=== PATIENT | male | born 1930 | race Caucasian/White ===

== ENCOUNTER → 2016-02-15 | Outpatient (CLI) | payer OTHER, BC ==
[~2016-02-15] MED LIST: BNC/20125 PO; CIPR-255 PO; DIPH25CA65 PO; DOCU-94 PO; DOXY100C76 PO; FINA5TAB PO; HYDR12.55 PO; MELA1TAB5 PO; MULT-190 PO; NAPR1TAB9 PO; OLME40TA30 PO; PHEN-876 PO; benicar
[2016-02-15 18:49] LABS: URINE APPEARANCE CLEAR (CLEAR); URINE BILIRUBIN NEG (NEG); URINE COLOR YELLOW; URINE NITRITE NEG (NEG); URINE SPECIFIC GRAVITY 1.008 (1.000-1.030); UROBILINOGEN NEG (NEG)
[2016-02-15 19:11] LABS: MANUAL MICROSCOPIC REQUIRED? NO; REVIEW REQ? YES
[2016-02-15 19:38] LABS: URINE EPITHELIAL CELL AUTO 20-30 /lpf (0-5)
== END | disposition home or self-care (01) ==
LOC: C.LABSPEC 17:49
PROVIDERS: ATTEND Urology
DX: N39.0 Urinary tract infection, site not specified (principal)

== ENCOUNTER → 2016-02-22 | Outpatient (CLI) | payer OTHER, BC | END | disposition home or self-care (01) | LOC: C.LABSPEC 17:15 | PROVIDERS: ATTEND Urology | DX: N39.0 Urinary tract infection, site not specified (principal); B37.49 Other urogenital candidiasis ==

== ENCOUNTER → 2016-04-11 | Outpatient (CLI) | payer OTHER, BC ==
[~2016-04-11] MED LIST changes: +OPTIRAY 320 IV PRN
--- NOTE | 2016-04-11 09:46 | DIAGNOSTIC IMAGING REPORT ---
CT ABD/PELVIS IV CONTRAST ONLY CLINICAL HISTORY: Recurrent transitional cell carcinoma the bladder COMPARISON STUDY: Outside study dated 10/06/2015 TECHNIQUE: Following the IV administration of 116 mL of Optiray-320, CT scan of the abdomen and pelvis was performed from the lung bases to the proximal femurs. Images are reviewed in the axial, sagittal, and coronal planes. IV contrast was administered without complication. CT DOSE: 620.16 mGycm FINDINGS: Lower chest: There are bibasal atelectatic changes. There is small hiatal hernia. Liver: The contrast-enhanced liver is normal in size, contour, and attenuation. There is no intrahepatic biliary ductal dilatation. The hepatic veins and portal veins are patent. Gallbladder: Unremarkable. Spleen: Normal in size and attenuation. Pancreas: There is a stable 3.4 cm cystic mass involving the pancreatic head. Likely diagnostic considerations include an IPMN, or cystadenoma/cystadenocarcinoma. Adrenal glands: There is stable left adrenal gland thickening. Kidneys: There are multiple bilateral renal cysts and parapelvic cysts. The largest on the left measures 18 mm. The largest on the right measures 15 mm. Bowel: There are no transition zones indicate bowel obstruction. There is no free air. There is colonic diverticulosis. There are no acute peridiverticular inflammatory changes. The appendix appears normal. Peritoneum: There is no intraperitoneal free air or abdominal ascites. Vasculature: The abdominal aorta is normal in course and caliber. Adenopathy: None. Pelvic viscera: The prostate is enlarged measuring 6.7 cm Skeletal structures: There is a stable 2.5 cm hypodensity located between the obturator externus and pectineus muscle. This likely relates to a distended bursa. IMPRESSION: 1. No CT evidence of metastatic disease. 2. Stable 3.4 cm cystic mass involving the pancreatic head 3. Prostamegaly 4. Diverticulosis. No evidence of acute diverticulitis. Electronically signed by: Austin Pradhan M.D. 04/11/2016 9:45 AM Dictated Date/Time: 04/11/2016 9:25 AM
== END | disposition home or self-care (01) ==
LOC: C.CTS 09:00
PROVIDERS: ATTEND Urology
DX: C67.9 Malignant neoplasm of bladder, unspecified (principal); N40.0 Benign prostatic hyperplasia without lower urinary tract symptoms; K57.90 Diverticulosis of intestine, part unspecified, without perforation or abscess without bleeding

== ENCOUNTER 2016-04-18 08:35 | Observation (INO) | payer OTHER, BC ==
[2016-04-04 10:19] VITALS: BMI 25.0
--- NOTE | 2016-04-04 10:57 | PAT Medication Instructions ---
Service Date Apr 04, 2016. Current Home Medication List Diphenhydramine Hcl (Benadryl Allergy), 1 CAP PO HS Docusate Sodium (Colace), 1 CAP PO BID Doxycycline Monohydrate (Monodox), 100 MG PO BID Finasteride (Proscar), 5 MG PO QPM Naproxen (Aleve), 220 MG PO Q12 PRN for Pain Ocuvite Preservision (Ocuvite Preservision), 1 TAB PO BID Olmesartan/Hctz (Benicar Hct 40/12.5), 1 TAB PO QAM Medication Instructions For Your Scheduled Surgery - Check with surgeon for instructions: Naproxen (Aleve), 220 MG PO Q12 PRN for Pain - Hold the following medications the morning of surgery: Olmesartan/Hctz (Benicar Hct 40/12.5), 1 TAB PO QAM Ocuvite Preservision (Ocuvite Preservision), 1 TAB PO BID Finasteride (Proscar), 5 MG PO QPM Docusate Sodium (Colace), 1 CAP PO BID - Take the following medications the morning of surgery with a sip of water: Doxycycline Monohydrate (Monodox), 100 MG PO BID - Take the following medications as scheduled the night before surgery: Doxycycline Monohydrate (Monodox), 100 MG PO BID Diphenhydramine Hcl (Benadryl Allergy), 1 CAP PO HS Docusate Sodium (Colace), 1 CAP PO BID If you have any questions please call us at [phone] (Maggie Pitts PA-C) or [phone] or [phone]
--- NOTE | 2016-04-04 11:40 | DIAGNOSTIC IMAGING REPORT ---
CHEST PREADMISSION(PA/LAT) CLINICAL HISTORY: PAT preoperative evaluation COMPARISON STUDY: No previous studies for comparison. FINDINGS: The bones soft tissues and hemidiaphragms are normal. The cardiomediastinal silhouette is normal. The lungs are clear. The pulmonary vasculature is normal. IMPRESSION: Negative chest. Electronically signed by: Luis De La Cruz M.D. 04/04/2016 11:39 AM Dictated Date/Time: 04/04/2016 11:39 AM
[2016-04-04 11:48] LABS: BASO % 0.3 %; BASO ABS # 0.02 K/uL (0-0.2); COMPLETE YES; EOS % 1.6 %; HEMATOCRIT 35.9 % (42-52); IG% 0.3 %; LYMPH % 14.7 %; LYMPH ABS # 0.85 K/uL (1.2-3.4); MEAN CELL VOLUME 95.2 fL (80-100); MEAN CORPUSCULAR HEMOGLOBIN 32.9 pg (25-34); MEAN CORPUSCULAR HGB CONC 34.5 g/dl (32-36); MEAN PLATELET VOLUME 9.2 fL (7.4-10.4); NEUT % 73.1 %; PLATELET COUNT 237 K/uL (130-400); RED BLOOD COUNT 3.77 M/uL (4.7-6.1)
[2016-04-04 11:59] LABS: URINE APPEARANCE CLEAR (CLEAR); URINE BILIRUBIN NEG (NEG); URINE COLOR YELLOW; URINE NITRITE NEG (NEG); URINE PH 5.5 (4.5-7.5); URINE SPECIFIC GRAVITY 1.009 (1.000-1.030); UROBILINOGEN NEG (NEG)
[2016-04-04 12:02] LABS: MANUAL MICROSCOPIC REQUIRED? NO; REVIEW REQ? NO
[2016-04-04 12:18] LABS: BUN/CREATININE RATIO 23.5 (10-20); CALCIUM 8.7 mg/dl (8.5-10.1); CREATININE 1.4 mg/dl (0.60-1.40); POTASSIUM 4.7 mmol/L (3.5-5.1)
[2016-04-18] VITALS (9 sets, daily range): BP systolic 95–178; BP diastolic 53–96; PULSE 71–91; TEMP 36.4–36.8; O2SAT 94–99; Ht 177.8 cm; Wt 78.7 kg
[~2016-04-18] VITALS: Ht 177.8 cm; Wt 78.7 kg
[~2016-04-18 08:35] MED LIST changes: -BNC/20125 PO; -CIPR-255 PO; +GENTAMICIN INJ 80 MG in DEXTROSE 5% 100ML 100 ML IV SCH; -HYDR12.55 PO; +LACTATED RINGER'S 1000ML 1,000 ML IV SCH; -MELA1TAB5 PO; -OPTIRAY 320 IV PRN; -PHEN-876 PO; -benicar
[2016-04-18] MEDS ORDERED: ONDANSETRON INJ 2 MG/ML 2 ML VIAL ONE (09:07)
[2016-04-18] MEDS ORDERED: DEXAMETHASONE SOD INJ 4 MG/ML VIAL ONE (09:07)
[2016-04-18] MEDS ORDERED: FENTANYL CITRATE INJ 50 MCG/1 ML 2 ML VIAL ONE (09:07)
[2016-04-18] MEDS ORDERED: PROPOFOL IV EMULSION 10 MG/ML 20 ML VIAL IV ONE (09:07)
[2016-04-18] MEDS ORDERED: LIDOCAINE HCL 2% 2 ML VIAL (20MG/ML) ONE (09:07)
[2016-04-18] MEDS ORDERED: LACTATED RINGER'S 1000ML 1,000 ML IV PRN (09:35)
[2016-04-18] MEDS ORDERED: ONDANSETRON INJ 2 MG/ML 2 ML VIAL IV PRN (09:45)
[2016-04-18] MEDS ORDERED: FENTANYL CITRATE INJ 50 MCG/1 ML 2 ML VIAL IV PRN (09:45)
--- NOTE | 2016-04-18 10:06 | History & Physical Bridge Note ---
H&P Re-Evaluation Bridge Note: I have examined the patient, reviewed the History & Physical and in the interval since the performance of the History & Physical I have noted the following changes of clinical significance: No changes noted
[2016-04-18] MEDS ORDERED: PHENYLEPHRINE 100MCG/ML 5ML SYR ONE (10:34)
[2016-04-18] MEDS ORDERED: VASOPRESSIN 20 UNIT/ML VIAL ONE (10:37)
[2016-04-18] MEDS ORDERED: SODIUM CHLORIDE 0.9% INJ 10 ML VIAL ONE (10:37)
[2016-04-18] MEDS ORDERED: CONRAY 30% 150ML BOTTLE INSTIL ONE (10:51)
--- NOTE | 2016-04-18 11:37 | DIAGNOSTIC IMAGING REPORT ---
Retrograde RETROGRADE INCLUDES KUB CLINICAL HISTORY: LT SIDE carcinoma TECHNIQUE: Image intensifier COMPARISON STUDY: None FINDINGS: Retrograde opacification of the left ureter and upper collecting system shows no significant filling defect. There is no evidence for contrast extravasation. IMPRESSION: Normal study Electronically signed by: Luis De La Cruz M.D. 04/18/2016 11:36 AM Dictated Date/Time: 04/18/2016 11:35 AM
--- NOTE | 2016-04-18 11:56 | [facility] Post Operative Brief Note ---
Immediate Operative Summary Operative Date Apr 18, 2016. Pre-Operative Diagnosis Benign prostatic hypertrophy with urinary obstruction Recurrent transitional cell carcinoma Post-Operative Diagnosis Same Procedure(s) Performed cystoscopy, left retrograde pyelogram, transurethral resection of bladder neck tumors with bipolar, fulgeration of large surface area posterior and lateral santana of bladder Surgeon Dr Rodriguez Radio Interference Supervisor Surgeon(s) none Estimated Blood Loss 50ml Findings 2cm tumor at bladder neck on posterior r aspect which spread down to the trigone Erythema on posterior wall and papillary 1 cm area posterior wall tumor bladder neck anterior left and lateral to l ureteral orifice no definite filling defect l ureter difficult to see r ureter because of tumor in r trigone Specimens A. posterior wall biopsy B. right trigon C. tumor of bladder neck Drains 22 cifuentes with 5 cc balloon Disposition Recovery Room / PACU
[2016-04-18] MEDS ORDERED: ACETAMINOPHEN 325 MG TAB PO PRN (12:00)
--- NOTE | 2016-04-18 12:32 | Anesthesiology Progress Note ---
Anesthesia Post Op Note Date & Time Apr 18, 2016 at 12:32 Vital Signs Pain Intensity: 0 Vital Signs Past 12 Hours Date Time Temp Pulse Resp B/P Pulse Ox O2 Delivery O2 Flow Rate FiO2 04/18/16 12:17 66 17 04/18/16 12:17 66 17 96 04/18/16 12:15 148/74 04/18/16 12:12 66 15 04/18/16 12:12 66 15 96 04/18/16 12:10 135/77 04/18/16 12:07 67 18 04/18/16 12:07 65 18 100 04/18/16 12:05 142/70 04/18/16 12:02 65 16 100 04/18/16 12:02 66 16 04/18/16 12:01 64 17 04/18/16 12:01 63 17 100 04/18/16 12:00 137/74 04/18/16 11:56 63 15 04/18/16 11:56 63 15 100 04/18/16 11:55 147/78 04/18/16 11:51 63 13 100 04/18/16 11:51 63 13 04/18/16 11:50 139/77 04/18/16 11:46 65 12 144/68 100 04/18/16 11:46 65 12 04/18/16 11:46 36.7 64 12 144/68 100 Mask 10 04/18/16 09:04 36.4 81 20 159/76 97 Room Air Notes Mental Status: alert / awake / arousable, participated in evaluation Pt Amnestic to Procedure: Yes Nausea / Vomiting: adequately controlled Pain: adequately controlled Airway Patency, RR, SpO2: stable & adequate BP & HR: stable & adequate Hydration State: stable & adequate Anesthetic Complications: no major complications apparent
--- NOTE | 2016-04-18 12:33 | OPERATIVE REPORT ---
DATE OF OPERATION: 04/18/2016 PREOPERATIVE DIAGNOSIS: Bladder cancer. POSTOPERATIVE DIAGNOSIS: Same. PROCEDURE: turbt,bladder biopsy and fulguration of 3 cm surface area, Left retrograde. SURGEON: Dr. Rodriguez. ANESTHESIA: General. INDICATIONS: The patient is an 85-year-old male with history of bladder cancer who was previously treated in [place], but came to my office for treatment after being diagnosed and needing BCG. He was given a course of BCG in my office and now had a recurrence at the bladder neck on the right inferiorly and left superiorly as well as some in the trigone area and on the posterior wall. He presents now for biopsies and fulguration to assess for further treatment and/or BCG. DESCRIPTION OF THE PROCEDURE: The patient was taken to the cysto suite with Venodyne stockings on. He had been given gentamicin. He was placed in the dorsal lithotomy position after general anesthesia was administered, prepped and draped in the usual sterile fashion. A 21-Malay cystoscope was passed per urethra for a long obstructing prostatic urethra and once inside the bladder the bladder was carefully examined with the 30, the 70 and the 110 degree lens. The largest tumor was on the inferior aspect of the bladder neck on the right side. This was about 1.5 cm and was contiguous with tumor that went into the trigone and made the right ureteral orifice difficult to see. The left ureteral orifice was clearly visualized. Because there was some difficulty visualizing some of the left collecting system on a CAT scan earlier this year in [place] repeat CAT scan did not confirm this here, but I did do a left retrograde and did not see any definite filling defect. I planned to do a right retrograde, but again because of difficulties identifying the orifice because of its proximity to the tumor did not proceed with this. I did proceed after this to do cup biopsies of the posterior wall. Because of the size of the prostate it would be difficult to actually do a resection of anything on the posterior wall and was able to biopsy and fulgurate 2 areas there. Subsequently, fulgurated several areas around the trigone, which were difficult to biopsy because of the size of the prostate. I did that using the 70 degree lens with a deflecting bridge. At the end of this, there were no other obvious tumors visible and I must say that I did fulgurate a large surface area on the posterior wall with the Bugbee about 2-3 cm in circumference. I then proceeded to place a resectoscope and did a TUR biopsy of the bladder neck of the larger tumor and then fulgurated much of the tumor that extended towards the trigone from this. I then also fulgurated the right anterior bladder neck tumor. At the end of the procedure, I placed a 22-Malay Hess catheter with 5 mL balloon. Bleeding seemed to be controlled. The patient was transferred to the recovery room in stable condition. I attest to the content of the Intraoperative Record and any orders documented therein. Any exceptions are noted below. MTDD
[2016-04-18] MEDS: SODIUM CHLORIDE 0.9% 1000ML 1,000 ML IV SCH ×2 (13:23→21:38)
[2016-04-18] MEDS: HYDROCODONE/ACETAMOPHEN 5/325MG TAB PO PRN ×2 (13:23→17:22)
[2016-04-18] MEDS ORDERED: IV FLUIDS COMPLETED PRN (13:30)
[2016-04-19 03:16] VITALS: BP 103/56; PULSE 76; TEMP 36.6; O2SAT 92
--- NOTE | 2016-04-19 08:01 | Anesthesiology Progress Note ---
Anesthesia Post Op Note Date & Time Apr 19, 2016 at 08:01 Vital Signs Pain Intensity: 0.0 Vital Signs Past 12 Hours Date Time Temp Pulse Resp B/P Pulse Ox O2 Delivery O2 Flow Rate FiO2 04/19/16 03:16 36.6 76 16 103/56 92 Room Air 04/18/16 23:27 82 113/64 94 Room Air 04/18/16 23:15 Room Air 04/18/16 23:02 36.6 80 16 95/53 96 Nasal Cannula 2.0 04/18/16 20:18 Nasal Cannula 2.0 Notes Mental Status: alert / awake / arousable, participated in evaluation Pt Amnestic to Procedure: Yes Nausea / Vomiting: adequately controlled Pain: adequately controlled Airway Patency, RR, SpO2: stable & adequate BP & HR: stable & adequate Hydration State: stable & adequate Anesthetic Complications: no major complications apparent
[2016-04-19 08:23] VITALS: BP 116/68; PULSE 69; TEMP 36.6; O2SAT 92
[2016-04-19 08:41] VITALS: O2SAT 92
--- NOTE | 2016-04-19 10:16 | Progress Note ---
Subjective Date of Service: Apr 19, 2016. Subjective Pt evaluation today including: conversation w/ patient, physical exam Voiding: cifuentes catheter in place 85 year old male s/p TURBT POD#[address] Rodriguez He is doing well post op Tolerating diet Ambulating in room and hallway Denies pain Cifuentes intact and draining clear light pink urine. No clots. AFVSS Review of Systems Constitutional: No chills, No fever Eyes: No worsening of vision ENT: No hearing loss Respiratory: No cough, No dyspnea on exertion, No shortness of breath Cardiac: No chest pain Abdomen: No constipation, No diarrhea, No nausea, No pain, No vomiting Musculoskeletal: No joint pain Male : + see HPI Neurologic: No memory loss Psychiatric: No depression symptoms Heme: No abnormal bleeding/bruising Endo: No fatigue Skin: No rash Objective Vital Signs Date Time Temp Pulse Resp B/P Pulse Ox O2 Delivery O2 Flow Rate FiO2 04/19/16 08:41 92 Room Air 04/19/16 08:23 36.6 69 14 116/68 92 Room Air 04/19/16 08:00 Room Air 04/19/16 03:16 36.6 76 16 103/56 92 Room Air 04/18/16 23:27 82 113/64 94 Room Air 04/18/16 23:15 Room Air 04/18/16 23:02 36.6 80 16 95/53 96 Nasal Cannula 2.0 04/18/16 20:18 Nasal Cannula 2.0 04/18/16 18:59 36.8 91 17 131/67 94 Nasal Cannula 2.0 04/18/16 16:04 36.7 80 18 172/82 99 Nasal Cannula 2.0 04/18/16 15:03 36.5 76 18 173/88 99 Nasal Cannula 2.0 04/18/16 14:00 71 16 169/80 95 Nasal Cannula 2.0 04/18/16 13:30 36.4 75 16 178/96 98 Nasal Cannula 2.0 04/18/16 13:00 36.4 73 16 167/85 98 Nasal Cannula 2.0 04/18/16 13:00 Nasal Cannula 2.0 04/18/16 13:00 Nasal Cannula 2.0 04/18/16 12:51 68 17 04/18/16 12:51 68 17 98 04/18/16 12:50 145/75 04/18/16 12:46 67 14 04/18/16 12:46 67 14 98 04/18/16 12:45 150/77 04/18/16 12:41 68 22 98 04/18/16 12:41 67 22 04/18/16 12:40 138/74 04/18/16 12:39 67 17 98 04/18/16 12:39 66 17 04/18/16 12:35 147/74 04/18/16 12:34 67 26 04/18/16 12:34 67 26 97 04/18/16 12:34 36.5 04/18/16 12:33 67 16 04/18/16 12:33 67 16 98 04/18/16 12:30 134/69 04/18/16 12:28 68 16 04/18/16 12:28 68 16 97 04/18/16 12:25 146/73 04/18/16 12:23 68 20 100 04/18/16 12:23 66 20 04/18/16 12:20 134/74 04/18/16 12:18 68 16 04/18/16 12:18 67 16 96 04/18/16 12:17 66 17 04/18/16 12:17 66 17 96 04/18/16 12:15 148/74 04/18/16 12:12 66 15 04/18/16 12:12 66 15 96 04/18/16 12:10 135/77 04/18/16 12:07 67 18 04/18/16 12:07 65 18 100 04/18/16 12:05 142/70 04/18/16 12:02 65 16 100 04/18/16 12:02 66 16 04/18/16 12:01 64 17 04/18/16 12:01 63 17 100 04/18/16 12:00 137/74 04/18/16 11:56 63 15 04/18/16 11:56 63 15 100 04/18/16 11:55 147/78 04/18/16 11:51 63 13 100 04/18/16 11:51 63 13 04/18/16 11:50 139/77 04/18/16 11:46 65 12 144/68 100 04/18/16 11:46 65 12 04/18/16 11:46 36.7 64 12 144/68 100 Mask 10 Physical Exam General Appearance: WD/WN, no apparent distress Eyes: normal inspection ENT: hearing grossly normal Neck: no JVD Respiratory/Chest: no respiratory distress, no accessory muscle use Abdomen: soft Extremities: normal inspection, no pedal edema, no calf tenderness Neurologic/Psychiatric: alert, normal mood/affect, oriented x 3 Skin: normal color, warm/dry, no rash Assessment and Plan Bladder Cancer s/p TURBT Pt doing well post op Urine is essentially clear- light pink/starla no clots- personally removed his cifuentes this am. Pt to be discharged today once he is able to void. Will send him home on 5 days of Cipro. Return to office for previously scheduled post op visit.
[2016-04-19] MEDS ORDERED: CIPR-255 PO (10:17)
--- NOTE | 2016-04-19 10:19 | Discharge Instructions ---
Discharge Instructions Date of Service Apr 19, 2016. Admission Reason for Admission: Bladder Cancer Discharge Discharge Diagnosis / Problem: Bladder Cancer Discharge Goals Goal(s): Decrease discomfort, Improve function, Improve disease control, Prevent Disease Progression Activity Recommendations Activity Limitations: per Instructions/Follow-up section . Instructions / Follow-Up Instructions / Follow-Up 1. Do not lift >15lbs x 6 weeks. 2. No heavy exercise x 6 weeks. You may engage in light activity such as walking and stairs as tolerated. 3. Finish all of the antibiotic you have been prescribed. 4. Follow-up as scheduled. Please call our office at [phone] if you need to reschedule for any reason. . Current Hospital Diet Hospital Diet(s): Regular Diet Discharge Diet Recommended Diet: Regular Diet Procedures Procedures Performed: cystoscopy, left retrograde pyelogram, transurethral resection of bladder neck tumors with bipolar, fulgeration of large surface area posterior and lateral santana of bladder Pending Studies Studies pending at discharge: no Medical Emergencies . Who to Call and When: Medical Emergencies: If at any time you feel your situation is an emergency, please call 911 immediately. . Non-Emergent Contact Non-Emergency issues call your: Primary Care Provider, Urologist Call Non-Emergent contact if: temperature is above 101.5 . . "Provider Documentation" section prepared by Kerri Grover. VTE Core Measure Inpt VTE Proph given/why not?: Unfractionated heparin SQ, SCD's
[2016-04-19 12:09] VITALS: BP 116/68; PULSE 69; TEMP 36.6; O2SAT 92
--- NOTE | 2016-04-21 18:04 | DISCHARGE SUMMARY ---
HISTORY OF PRESENTATION AND HOSPITAL COURSE: The patient is a 85-year-old male who had significant bladder cancer status post VCG with persistent cancer on followup cystoscopy. He presented for TURBT and fulguration for staging and treatment. The patient had his procedure on 04/18/2016 without difficulty. Postoperatively he had a Hess catheter in place and was left in the hospital because of his age and lived an hour away. He did well overnight with light pink urine. The following day the catheter was removed. He was able to void and discharged to home in stable condition.
[2016-07-17] MEDS ORDERED: BNC/20125 PO (16:25)
[2016-07-17] MEDS ORDERED: MELA1TAB5 PO (16:25)
== END 2016-04-19 12:20 | disposition home or self-care (01) ==
LOC: ENRESERVTM → ENRESERVDT → C.ACU 08:35 → C.MSN 12:04 → UNDOADMOB 13:09 → C.MSN 13:09
PROVIDERS: ADMIT Urology; ATTEND Urology
DX: C67.9 Malignant neoplasm of bladder, unspecified (principal); N40.1 Benign prostatic hyperplasia with lower urinary tract symptoms; I10 Essential (primary) hypertension

== ENCOUNTER → 2016-04-30 | Outpatient (CLI) | payer OTHER, BC ==
[~2016-04-30] MED LIST changes: +BNC/20125 PO; +CIPR-255 PO; -DOXY100C76 PO; -GENTAMICIN INJ 80 MG in DEXTROSE 5% 100ML 100 ML IV SCH; +HYDR12.55 PO; -LACTATED RINGER'S 1000ML 1,000 ML IV SCH; +MELA1TAB5 PO; +PHEN-876 PO; +benicar
== END | disposition home or self-care (01) ==
LOC: C.LABSPEC 17:14
PROVIDERS: ATTEND Urology
DX: N39.0 Urinary tract infection, site not specified (principal); C67.9 Malignant neoplasm of bladder, unspecified

== ENCOUNTER → 2016-06-17 | Outpatient (CLI) | payer OTHER, BC | END | disposition home or self-care (01) | LOC: C.LABSPEC 17:14 | PROVIDERS: ATTEND Nurse Practitioner Family | DX: N39.0 Urinary tract infection, site not specified (principal); C67.9 Malignant neoplasm of bladder, unspecified ==

== ENCOUNTER → 2016-07-16 | Outpatient (CLI) | payer OTHER, BC ==
--- NOTE | 2016-07-25 06:22 | CODING QUERY MEDICAL NECESSITY ---
CQSUPPORTING DIAGNOSIS NEEDED A supporting diagnosis is required for the test/procedure performed on this patient in order for us to be reimbursed by the patient's insurance. Please provide a supporting diagnosis for the following test/procedure listed below next to the test name along with your signature. *If there is no additional diagnosis for this patient that would support the following test/procedure please document that below next to the test/procedure. Test(s)/Procedure(s) that require a supporting diagnosis: TAYLOR 07/16/16 URINE CULTURE Provider Signature: Date: Thank you Maria Antonia Gonzales [employer] Once completed, please kindly fax back to [phone] For questions please call [phone]
== END | disposition home or self-care (01) ==
LOC: C.LABSPEC 17:21
PROVIDERS: ATTEND Urology
DX: C67.9 Malignant neoplasm of bladder, unspecified (principal); N39.0 Urinary tract infection, site not specified

== ENCOUNTER → 2016-07-25 | Outpatient (CLI) | payer OTHER, BC ==
[~2016-07-25] MED LIST changes: -CIPR-255 PO; -DIPH25CA65 PO; -OLME40TA30 PO
[2016-07-25 12:54] LABS: BASO % 0.3 %; BASO ABS # 0.02 K/uL (0-0.2); COMPLETE YES; EOS % 1.5 %; HEMATOCRIT 34.1 % (42-52); IG% 0.3 %; LYMPH % 15.5 %; LYMPH ABS # 1.11 K/uL (1.2-3.4); MEAN CELL VOLUME 96.3 fL (80-100); MEAN CORPUSCULAR HEMOGLOBIN 31.9 pg (25-34); MEAN CORPUSCULAR HGB CONC 33.1 g/dl (32-36); MEAN PLATELET VOLUME 9.3 fL (7.4-10.4); MONO % 10.5 %; NEUT % 71.9 %; PLATELET COUNT 264 K/uL (130-400); RED BLOOD COUNT 3.54 M/uL (4.7-6.1); WHITE BLOOD COUNT 7.17 K/uL (4.8-10.8)
[2016-07-25 17:40] LABS: BLOOD UREA NITROGEN 55 mg/dl (7-18); CALCIUM 8.3 mg/dl (8.5-10.1); CARBON DIOXIDE 21 mmol/L (21-32); CHLORIDE 114 mmol/L (98-107); GLUCOSE 103 mg/dl (70-99); POTASSIUM 4.9 mmol/L (3.5-5.1); SODIUM 143 mmol/L (136-145)
[2016-07-25 17:55] LABS: URINE APPEARANCE TURBID (CLEAR); URINE BILIRUBIN NEG (NEG); URINE COLOR ORANGE; URINE EPITHELIAL CELL AUTO 20-30 /lpf (0-5); URINE NITRITE NEG (NEG); URINE SPECIFIC GRAVITY 1.017 (1.000-1.030); UROBILINOGEN NEG (NEG)
[2016-07-25 18:00] LABS: MANUAL MICROSCOPIC REQUIRED? NO; REVIEW REQ? YES
== END | disposition home or self-care (01) ==
LOC: C.LABPBG 11:29
PROVIDERS: ATTEND Urology
DX: C67.9 Malignant neoplasm of bladder, unspecified (principal)

== ENCOUNTER 2016-08-08 07:16 | Day surgery (SDC) | payer OTHER, BC ==
[2016-07-17 16:30] VITALS: Ht 177.8 cm; Wt 79.5 kg
[~2016-08-08] VITALS: Ht 177.8 cm; Wt 79.5 kg
[~2016-08-08 07:16] MED LIST changes: +GENTAMICIN INJ 240 MG in DEXTROSE 5% 100ML 100 ML IV SCH; -HYDR12.55 PO; +LACTATED RINGER'S 1000ML 1,000 ML IV SCH; -PHEN-876 PO; -benicar
[2016-08-08] MEDS ORDERED: FENTANYL CITRATE INJ 50 MCG/1 ML 2 ML VIAL ONE (07:35)
[2016-08-08] MEDS ORDERED: LIDOCAINE HCL 2% 2 ML VIAL (20MG/ML) ONE (07:35)
[2016-08-08] MEDS ORDERED: ONDANSETRON INJ 2 MG/ML 2 ML VIAL ONE (07:35)
[2016-08-08] MEDS ORDERED: DEXAMETHASONE SOD INJ 4 MG/ML VIAL ONE (07:35)
[2016-08-08] MEDS ORDERED: MoRPHine SULFATE 2 MG/ML CARP ONE ×2 (07:35→10:17)
[2016-08-08] MEDS ORDERED: PROPOFOL IV EMULSION 10 MG/ML 20 ML VIAL IV ONE (07:35)
[2016-08-08] MEDS ORDERED: benicar (08:17)
[2016-08-08] MEDS ORDERED: HYDR12.55 PO (08:17)
[2016-08-08 08:22] VITALS: BP 145/78; PULSE 62; TEMP 36.6; O2SAT 96
[2016-08-08] MEDS ORDERED: VASOPRESSIN 20 UNIT/ML VIAL ONE (09:54)
[2016-08-08] MEDS ORDERED: EpHEDrine SULFATE 50MG/5ML SYR ONE (09:54)
[2016-08-08] MEDS ORDERED: PHENYLEPHRINE 100MCG/ML 5ML SYR ONE (09:54)
[2016-08-08] MEDS ORDERED: EpHEDrine SULFATE INJ 50 MG/ML AMP IV PRN (10:00)
[2016-08-08] MEDS ORDERED: FENTANYL CITRATE INJ 50 MCG/1 ML 2 ML VIAL IV PRN (10:00)
[2016-08-08] MEDS ORDERED: ATROPINE SULFATE 0.1 MG/ML 5ML SYR IV PRN (10:00)
--- NOTE | 2016-08-08 11:07 | [facility] Post Operative Brief Note ---
Immediate Operative Summary Operative Date Aug 08, 2016. Pre-Operative Diagnosis Benign Prostatic Hyperplasia with Urinary Obstruction, Malignant Neoplasm of Bladder, Recurrent Bladder Transitional Cell Carcinoma Post-Operative Diagnosis Benign Prostatic Hyperplasia with Urinary Obstruction, Malignant Neoplasm of Bladder, Recurrent Bladder Transitional Cell Carcinoma Procedure(s) Performed Cystoscopy, folgeration of large bladder biopsy. Surgeon Dr. Rodriguez Legal Records Clerk Surgeon(s) none Estimated Blood Loss 10 ml Findings cloudy urine , multiple large areas of inflammation worrisome for CIS but indistinguishable from chronic infection biopsies taken from multiple areas and large surface areas of friable tissue fulgurated no mass seen Specimens A: Posterior wall biopsy B: Right lateral wall C: Left anterior wall D: Left lateral wall E: Trigone Drains 18 cifuentes
[2016-08-08] MEDS ORDERED: PHEN-876 PO (11:09)
--- NOTE | 2016-08-08 11:11 | Discharge Instructions ---
Discharge Instructions Date of Service Aug 08, 2016. Visit Reason for Visit: Bladder Cancer Discharge Discharge Diagnosis / Problem: post op bladder bx and fulguration of large surface area Discharge Goals Goal(s): Decrease discomfort, Increase independence, Improve disease control Activity Recommendations Activity Limitations: per Instructions/Follow-up section (light activity next 7 days) Anesthesia . Post Anesthesia Instructions: If you have had General Anesthesia or IV Sedation: * Do not drive today. * Resume driving when surgeon permits. * Do not make important decisions or sign legal documents today. * Call surgeon for: 1. Temperature elevations greater than 101 degrees F. 2. Uncontrollable pain. 3. Excessive bleeding. 4. Persistent nausea and vomiting. 5. Medication intolerance (nausea, vomiting or rash). * For nausea and vomiting use only clear liquids such as: tea, soda, bouillon until nausea subsides, then gradually increase diet as tolerated. * If you have any concerns or questions, call your surgeon's office. If physician is unavailable and it is an emergency, call 911 or go to the nearest emergency room. . Diet Recommendations Recommended Home Diet: resume previous diet Procedures Procedures Performed: Cystoscopy, folgeration of large bladder biopsy. Pending Studies Studies pending at discharge: no Medical Emergencies . Who to Call and When: Medical Emergencies: If at any time you feel your situation is an emergency, please call 911 immediately. . Non-Emergent Contact Non-Emergency issues call your: Urologist Call Non-Emergent contact if: temperature is above 101, your pain is not controlled (you are unable to void) . . "Provider Documentation" section prepared by Rafael Rodriguez. .
--- NOTE | 2016-08-08 11:26 | [facility] Operative Report ---
Operative Report Operative Date Aug 08, 2016. Pre-Operative Diagnosis Benign Prostatic Hyperplasia with Urinary Obstruction, Malignant Neoplasm of Bladder, Recurrent Bladder Transitional Cell Carcinoma Procedure(s) Performed bladder biopsies and fulguration of large surface area Surgeon Dr. Rodriguez Gas Load Dispatcher Surgeon(s) none Estimated Blood Loss 10 ml Findings diffuse areas of erythema and chronically enflamed bladder Specimens A: Posterior wall biopsy B: Right lateral wall C: Left anterior wall D: Left lateral wall E: Trigone Drains 18 cifuentes Description of Procedure Pt taken to the cysto suite and placed in dorsal lithotomy position with antibiotics and venodyne stockings. General anesthesia administered and he was prepped and draped in the usual sterile fashion. A 22 kuwaiti cysto was passed and the bladder was drained of cloudy urine . He had several areas diffusely through the bladder where the wall was inflamed . Multiple areas were biopsied and large areas around these sights were fulgurated . At the end of the procedure there was no significant bleeding and the patient was transferred to the recovery room in stable condition with an 18 kuwaiti indwelling cifuentes. No mass was seen . I attest to the content of the Intraoperative Record and any orders documented therein. Any exceptions are noted below.
--- NOTE | 2016-08-08 11:28 | Anesthesiology Progress Note ---
Anesthesia Post Op Note Date & Time Aug 08, 2016 at 11:28 Vital Signs Pain Intensity: 0 Vital Signs Past 12 Hours Date Time Temp Pulse Resp B/P (MAP) Pulse Ox O2 Delivery O2 Flow Rate FiO2 08/08/16 11:20 36.3 71 14 130/68 96 Oxymask 3 08/08/16 11:10 69 14 126/68 95 Oxymask 5 08/08/16 11:00 66 14 129/71 95 Oxymask 10 08/08/16 10:50 36.2 70 12 130/67 95 Oxymask 10 08/08/16 08:22 36.6 62 18 145/78 (100) 96 Room Air Notes Mental Status: alert / awake / arousable, participated in evaluation Pt Amnestic to Procedure: Yes Nausea / Vomiting: adequately controlled Pain: adequately controlled Airway Patency, RR, SpO2: stable & adequate BP & HR: stable & adequate Hydration State: stable & adequate Anesthetic Complications: no major complications apparent
[2016-08-08 11:35] VITALS: BP 128/62; PULSE 72; TEMP 35.9; O2SAT 94
[2016-08-08 12:05] VITALS: BP 136/70; PULSE 73; O2SAT 95
[2016-08-08 12:40] VITALS: BP 138/69; PULSE 71; O2SAT 96
[2016-08-08 15:00] VITALS: BP 135/75; PULSE 75; TEMP 36.5; O2SAT 96
== END 2016-08-08 15:00 | disposition home or self-care (01) ==
LOC: C.ACU 07:16
PROVIDERS: ATTEND Urology
DX: D09.0 Carcinoma in situ of bladder (principal); N40.1 Benign prostatic hyperplasia with lower urinary tract symptoms; N13.8 Other obstructive and reflux uropathy; N30.20 Other chronic cystitis without hematuria; Z87.891 Personal history of nicotine dependence; Z79.899 Other long term (current) drug therapy

== ENCOUNTER → 2016-08-21 | Outpatient (CLI) | payer OTHER, BC ==
[~2016-08-21] MED LIST changes: -BNC/20125 PO; -GENTAMICIN INJ 240 MG in DEXTROSE 5% 100ML 100 ML IV SCH; +HYDR12.55 PO; -LACTATED RINGER'S 1000ML 1,000 ML IV SCH; -NAPR1TAB9 PO; +benicar
== END | disposition home or self-care (01) ==
LOC: C.LABSPEC 17:22
PROVIDERS: ATTEND Urology
DX: C67.9 Malignant neoplasm of bladder, unspecified (principal)

== ENCOUNTER → 2016-09-10 | Outpatient (CLI) | payer OTHER, BC | END | disposition home or self-care (01) | LOC: C.PATHSPEC 17:11 → C.LABSPEC 17:11 | PROVIDERS: ATTEND Urology | DX: N39.0 Urinary tract infection, site not specified (principal) ==

== ENCOUNTER → 2016-09-13 | Outpatient (CLI) | payer OTHER, BC ==
[2016-09-16 12:59] LABS: QUANTIF TB AG-NIL 0.01 IU/ML; QUANTIFERON NIL 0.04 IU/ML
== END | disposition home or self-care (01) ==
LOC: C.LABPBG 12:39
PROVIDERS: ATTEND Family Medicine
DX: N30.80 Other cystitis without hematuria (principal)

== ENCOUNTER → 2016-10-04 | Outpatient (CLI) | payer OTHER, BC ==
[2016-10-04 12:19] LABS: BASO % 0.6 %; BASO ABS # 0.03 K/uL (0-0.2); COMPLETE YES; EOS % 2.1 %; HEMATOCRIT 34.8 % (42-52); IG% 0.4 %; LYMPH % 17.4 %; LYMPH ABS # 0.89 K/uL (1.2-3.4); MEAN CELL VOLUME 96.7 fL (80-100); MEAN CORPUSCULAR HEMOGLOBIN 32.2 pg (25-34); MEAN CORPUSCULAR HGB CONC 33.3 g/dl (32-36); MEAN PLATELET VOLUME 9.5 fL (7.4-10.4); MONO % 11.1 %; NEUT % 68.4 %; PLATELET COUNT 229 K/uL (130-400); WHITE BLOOD COUNT 5.12 K/uL (4.8-10.8)
[2016-10-04 12:50] LABS: ALT/SGPT 18 U/L (12-78); AST/SGOT 15 U/L (15-37); BLOOD UREA NITROGEN 36 mg/dl (7-18); BUN/CREATININE RATIO 22.3 (10-20); CALCIUM 8.3 mg/dl (8.5-10.1); CARBON DIOXIDE 23 mmol/L (21-32); CHLORIDE 109 mmol/L (98-107); GLUCOSE,FASTING 96 mg/dl (70-99); POTASSIUM 4.5 mmol/L (3.5-5.1); SODIUM 140 mmol/L (136-145)
[2016-10-04 12:51] LABS: ALKALINE PHOSPHATASE 103 U/L (45-117); CHOLESTEROL 197 mg/dl (0-200); CHOLESTEROL/HDL RATIO 2.5; HDL CHOLESTEROL 79 mg/dl; LDL CHOLESTEROL CALCULATED 104 mg/dl; TRIGLYCERIDES 69 mg/dl (0-150); VERY LOW DENSITY LIPOPROT CALC 14 mg/dl
[2016-10-04 13:37] LABS: LYME DISEASE AB IGG POS (NEG); LYME DISEASE AB IGM POS (NEG)
[2016-10-12 01:53] LABS: 18KDIGG BAND REACTIVE (NONREACTIVE); 23KDIGG BAND REACTIVE (NONREACTIVE); 23KDIGM BAND REACTIVE (NONREACTIVE); 28KDIGG BAND REACTIVE (NONREACTIVE); 30KDIGG BAND NONREACTIVE (NONREACTIVE); 39KDIGG BAND REACTIVE (NONREACTIVE); 39KDIGM BAND NONREACTIVE (NONREACTIVE); 41KDIGG BAND REACTIVE (NONREACTIVE); 41KDIGM BAND REACTIVE (NONREACTIVE); 45KDIGG BAND REACTIVE (NONREACTIVE); 58KDIGG BAND REACTIVE (NONREACTIVE); 66KDIGG BAND NONREACTIVE (NONREACTIVE); 93KDIGG BAND NONREACTIVE (NONREACTIVE)
== END | disposition home or self-care (01) ==
LOC: C.LABPBG 07:32
PROVIDERS: ATTEND Physician Assistant
DX: Z00.00 Encounter for general adult medical examination without abnormal findings (principal); R21 Rash and other nonspecific skin eruption

== ENCOUNTER → 2016-11-26 | Outpatient (CLI) | payer OTHER, BC ==
[2016-11-26 17:29] LABS: BASO % 0.3 %; BASO ABS # 0.02 K/uL (0-0.2); COMPLETE YES; EOS % 2.4 %; HEMATOCRIT 35.3 % (42-52); IG% 0.2 %; LYMPH % 17.8 %; LYMPH ABS # 1.02 K/uL (1.2-3.4); MEAN CELL VOLUME 96.4 fL (80-100); MEAN CORPUSCULAR HEMOGLOBIN 31.7 pg (25-34); MEAN CORPUSCULAR HGB CONC 32.9 g/dl (32-36); MEAN PLATELET VOLUME 9.2 fL (7.4-10.4); MONO % 10.1 %; NEUT % 69.2 %; PLATELET COUNT 241 K/uL (130-400); RED BLOOD COUNT 3.66 M/uL (4.7-6.1); WHITE BLOOD COUNT 5.72 K/uL (4.8-10.8)
[2016-11-26 17:35] LABS: URINE APPEARANCE CLEAR (CLEAR); URINE BILIRUBIN NEG (NEG); URINE COLOR YELLOW; URINE NITRITE NEG (NEG); URINE PH 5.5 (4.5-7.5); URINE SPECIFIC GRAVITY 1.017 (1.000-1.030); UROBILINOGEN NEG (NEG)
[2016-11-26 17:41] LABS: MANUAL MICROSCOPIC REQUIRED? NO; REVIEW REQ? NO
[2016-11-26 17:43] LABS: BLOOD UREA NITROGEN 30 mg/dl (7-18); BUN/CREATININE RATIO 21.2 (10-20); CALCIUM 8.5 mg/dl (8.5-10.1); CARBON DIOXIDE 25 mmol/L (21-32); CHLORIDE 109 mmol/L (98-107); CREATININE 1.43 mg/dl (0.60-1.40); GLUCOSE 86 mg/dl (70-99); MAGNESIUM 2.4 mg/dl (1.8-2.4); POTASSIUM 4.6 mmol/L (3.5-5.1); SODIUM 138 mmol/L (136-145)
[2016-11-26 17:45] LABS: CREATININE, URINE 41.5 mg/dl; URINE PROTIEN/CREAT RATIO 0.2 (0-0.2); URINE TOTAL PROTEIN 9.4 mg/dl (0-11.9)
[2016-11-26 17:47] LABS: FERRITIN 28.2 ng/ml (8.0-388.0); PHOSPHORUS 2.9 mg/dl (2.5-4.9); TOTAL IRON BINDING CAPACITY 307 mcg/dl (250-450)
== END | disposition home or self-care (01) ==
LOC: C.LABPBG 14:47
PROVIDERS: ATTEND Internal Medicine Nephrology
DX: N18.3 Chronic kidney disease, stage 3 (moderate) (principal); D64.9 Anemia, unspecified

== ENCOUNTER → 2017-05-29 | Outpatient (CLI) | payer OTHER, BC ==
[2017-05-29 13:48] LABS: BASO % 0.3 %; BASO ABS # 0.02 K/uL (0-0.2); EOS % 0.8 %; EOS ABS # 0.05 K/uL (0-0.5); HEMATOCRIT 37.5 % (42-52); HEMOGLOBIN 12.6 g/dL (14.0-18.0); IG# 0.02 K/uL (0.00-0.02); LYMPH ABS # 0.78 K/uL (1.2-3.4); MEAN CELL VOLUME 97.7 fL (80-100); MEAN CORPUSCULAR HEMOGLOBIN 32.8 pg (25-34); MEAN CORPUSCULAR HGB CONC 33.6 g/dl (32-36); MEAN PLATELET VOLUME 9.8 fL (7.4-10.4); MONO % 9.2 %; MONO ABS # 0.55 K/uL (0.11-0.59); NEUT % 76.4 %; NEUT ABS # 4.57 K/uL (1.4-6.5); PLATELET COUNT 216 K/uL (130-400); RED CELL DISTRIBUTION WIDTH CV 12.7 % (11.5-14.5); RED CELL DISTRIBUTION WIDTH SD 45.1 fL (36.4-46.3); WHITE BLOOD COUNT 5.99 K/uL (4.8-10.8)
[2017-05-29 14:09] LABS: ALBUMIN 3.4 gm/dl (3.4-5.0); BLOOD UREA NITROGEN 28 mg/dl (7-18); CALCIUM 8.6 mg/dl (8.5-10.1); CARBON DIOXIDE 23 mmol/L (21-32); CREATININE 1.39 mg/dl (0.60-1.40); GLUCOSE 85 mg/dl (70-99); PHOSPHORUS 2.9 mg/dl (2.5-4.9); POTASSIUM 4.7 mmol/L (3.5-5.1); SODIUM 138 mmol/L (136-145)
== END | disposition home or self-care (01) ==
LOC: C.LABPBG 10:33
PROVIDERS: ATTEND Family Medicine
DX: I12.9 Hypertensive chronic kidney disease with stage 1 through stage 4 chronic kidney disease, or unspecified chronic kidney disease (principal); N18.3 Chronic kidney disease, stage 3 (moderate); D64.9 Anemia, unspecified; E55.9 Vitamin D deficiency, unspecified; E53.8 Deficiency of other specified B group vitamins

== ENCOUNTER 2021-02-15 14:09 | Inpatient (IN) ==
[2021-02-15 14:51] LABS: Basophils # (auto) 0.01 K/uL (0-0.2); Basophils % (auto) 0.1 %; Eosinophils # (auto) 0.02 K/uL (0-0.5); Eosinophils % (auto) 0.2 %; Hematocrit (blood only) 39.1 % (42-52); Hemoglobin 12.9 g/dL (14.0-18.0); Immature Granulocytes # (auto) 0.04 K/uL (0.00-0.02); Immature Granulocytes % (auto) 0.4 %; Lymphocytes # (auto) 0.61 K/uL (1.2-3.4); Lymphocytes % (auto) 5.8 %; Mean Corpuscular Hemoglobin 32.7 pg (25-34); Mean Corpuscular Volume 99.2 fL (80-100); Mean Platelet Volume 10.1 fL (7.4-10.4); Monocytes # (auto) 0.64 K/uL (0.11-0.59); Monocytes % (auto) 6.1 %; Neutrophils # (auto) 9.17 K/uL (1.4-6.5); Neutrophils % (auto) 87.4 %; Platelet Count 167 K/uL (130-400); RDW Coefficient of Variation 12.7 % (11.5-14.5); RDW Standard Deviation 46.5 fL (36.4-46.3); Red Blood Count 3.94 M/uL (4.7-6.1); White Blood Count 10.49 K/uL (4.8-10.8)
[2021-02-15 15:23] LABS: Alanine Aminotransferase 28 (12-78); Albumin Globulin Ratio 0.7 (0.9-2); Alkaline Phosphatase 119 U/L (45-117); Aspartate Aminotransferase 27 U/L (15-37); Bilirubin,Total 0.4 mg/dl (0.2-1); Blood Urea Nitrogen 47 mg/dl (7-18); Calcium 8.8 mg/dl (8.5-10.1); Carbon Dioxide 19 mmol/L (21-32); Chloride 107 mmol/L (98-107); Est GFR (African American) 29.1 ml/min; Est GFR (Non-African American) 25.1 ml/min; Globulin 4.4 gm/dl (2.5-4.0); Glucose 107 mg/dl (70-99); Potassium 4.3 mmol/L (3.5-5.1); Sodium 134 mmol/L (136-145); Total Protein 7.4 gm/dl (6.4-8.2)
[2021-02-15] MEDS ORDERED: ACETAMINOPHEN 1,000 MG/100 ML VIAL IV STA (15:28)
[2021-02-15] MEDS ORDERED: SODIUM CHLORIDE 0.9% 500 ML IV ONE (15:43)
[2021-02-15 15:44] LABS: Appearance Urine Turbid (Clear); Bacteria Urine Automated 4+ (Negative); Bilirubin Urine Negative (Negative); Blood Urine 3+ (Negative); Color Urine Yellow; Epithelial Cell Urine Auto >30 /lpf (0-5); Glucose Urine UA Negative (Negative); Ketones Urine Negative (Negative); Leukocyte Esterase Urine 3+ (Negative); Nitrite Urine Negative (Negative); Protein Urine 2+ (Negative); Specific Gravity Urine 1.016 (1.000-1.030); Urobilinogen Urine Negative (Negative); WBC Urine Automated >30 /hpf (0-5)
[2021-02-15] MEDS ORDERED: SODIUM CHLORIDE 0.9% 500 ML IV SCH (15:45)
[2021-02-15] MEDS ORDERED: SODIUM CHLORIDE 0.9% 1000ML 500 ML IV ONE (15:46)
[2021-02-15] MEDS ORDERED: cefTRIAXone SODIUM 1,000 MG/50 ML BAG IV STA (16:17)
[2021-02-15 16:25] LABS: Partial Thromboplastin Ratio 0.9; Partial Thromboplastin Time 23.9 Seconds (21.0-31.0); Prothrombin Time 10.6 Seconds (9.0-12.0)
[2021-02-15] MEDS: SODIUM CHLORIDE 0.9% 500 ML IV SCH ×2 (16:25→21:21)
--- NOTE | 2021-02-15 16:41 | CT Scan Report ---
CT abd pelvis wo con CLINICAL HISTORY: abd pain bladder ca fever TECHNIQUE: Helical axial images of the abdomen and pelvis were obtained. Automated dose lowering tech niques and/or adjustment according to patient size were utilized for this exam. This exam was perfor med without intravenous contrast. COMPARISON: Comparison is made to CT abdomen pelvis 01/24/2021 FINDINGS: Lower chest: Bibasilar atelectasis is seen. There is a small pericardial effusion. Calcifications ar e seen about the tricuspid, mitral, and aortic valves. Liver: Unremarkable. No focal lesions are seen. Gallbladder and biliary tree: No calcified gallstones. Normal caliber wall. No intra- or extrahepatic biliary ductal dilation. Pancreas: There is a cystic lesion in the pancreatic head measuring 39 x 25 mm, similar in appearance to prior exam. Spleen: Unremarkable. 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 Kidneys and ureters: A double-J stent is seen on the left. Scattered renal cysts are seen. Mild [place] thinning is seen on the left. Bladder: There is a tiny focus of air in the bladder, correlation with recent rotation is recommended . Mild bladder wall thickening is seen. Reproductive organs: Prostatomegaly is seen. Bowel: Diverticulosis is seen without evidence of diverticulitis. Lymph nodes Retroperitoneal: Unremarkable. Mesenteric: Unremarkable. Pelvic: Unremarkable. Peritoneum: Normal Vessels: Atherosclerotic calcifications are seen. Abdominal wall: Unremarkable. Bones: Degenerative changes in the visualized spine. IMPRESSION: 1. Bladder wall thickening is likely secondary to bladder outlet obstruction, and is unchanged from prior exam. There is a small focus of air in the bladder. Correlation with recent instrumentation and urinalysis is recommended to exclude cystitis. Otherwise no acute abnormalities are seen. 2. Nephroureteral stent on the left with remaining hydroureteronephrosis. 3. 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 ACT 112: Negative or not required by law. Electronically signed by: sOorio Andres M.D. 02/15/2021 4:40 PM
--- NOTE | 2021-02-15 16:47 | XRay Report ---
XR chest 1V portable CLINICAL HISTORY: fever, weakness TECHNIQUE: Single frontal radiograph of the chest was obtained. Comparison: None available at the time of this dictation. FINDINGS: No lines and tubes are seen. Calcified aortic knob is seen. The lungs are clear. No evidence of pleur al effusion or pneumothorax. IMPRESSION: No acute chest disease. ACT 112: Negative or not required by law. Electronically signed by: Osorio Andres M.D. 02/15/2021 4:46 PM
[2021-02-15 16:50] LABS: Influenza A virus by PCR Negative (Neg); Influenza B virus by PCR Negative (Neg); RSV by PCR Negative (Neg); SARS CoV2 RNA(COVID-19) InHosp NEGATIVE (Negative)
--- NOTE | 2021-02-15 17:51 | History & Physical Report ---
Date of Service February 15, 2021 Assessment & Plan (1) Pyelonephritis: Plan: Admit to a monitored bed Patient was given Rocephin. In the emergency room, okay to continue for now pending cultures Blood cultures, also performed in the ER Due to the complicated nature of the patient's underlying disease, will ask urology to evaluate for further recommendations PT/OT evaluation (2) Recurrent bladder transitional cell carcinoma: Plan: Patient is started BCG treatment as noted Eventual plans for nephrectomy, has previously refused cystectomy but I do see this is noted in urology his last visit documentation, will defer to them (3) MICHELLE (acute kidney injury): Plan: Suspect this may be multifactorial including prerenal azotemia along with possible bladder outlet obstruction. Continue gentle hydration, follow laboratory work Bladder scan and consider placement Hess catheter pending results Hold losartan and hydrochlorothiazide (4) Hypertension: Plan: Patient is hypotensive at this time and we will hold antihypertensives. I do see the patient is on hydrochlorothiazide losartan at home which will be held (5) Hyperlipidemia: Plan: No medications documented for this despite being part of medical history. Check fasting lipid panel in the morning History of Present Illness Chief Complaint: fever Primary Care Provider: Danuta Kerr, This is an 89-year-old male with past medical history of bladder cancer, hyperlipidemia, hypertension, and macular degeneration presents today complaining of fever. His and his daughter at bedside and all a very pleasant and good historians. Patient has been under the care of Dr. Rodriguez for bladder cancer. He is previously refused cystectomy. There was some concern about clot or lesion in the left kidney. He was subsequently referred to [place] with consideration for a left utero nephrectomy. Patient is also receiving BCG therapy and received his first dose early this week. Patient did well after this but within 24 hours developed a fever. This worsened over 48hours with a T-max of 102 F at home. Patient did not have any abdominal or flank pain. He did not feel he had any urine issues either. He does not usually self cath. Family tells me that his vision is poor and he would not know if he was having hematuria or cloudy urine output the did note that his last urination had a strong scent to this. Family did contact urology office yesterday which old if he continues to worsen that he should be brought to the emergency room. Patient's fever persisted into the morning and he was brought here for further evaluation. At the time my evaluation, I did note the patient was mildly hypotensive with a systolic blood pressure in the high 90s. He did not appear to be in any cardiopulmonary distress. Temp on presentation he was 37.9 F. Allergies Allergy/AdvReac Type Severity Reaction Status Date / Time caffeine Allergy Intermediate Throat Verified 02/15/21 16:24 swelling, hives, redness nitrofurantoin Allergy Unknown Unknown Verified 02/15/21 16:24 Home Medications Medication Instructions Recorded Confirmed Type docusate sodium 100 mg capsule 100 mg PO QPM 04/22/18 02/15/21 History (Colace) melatonin 3 mg tablet 5 mg PO HS 04/22/18 02/15/21 History methenamine hippurate 1 gram tablet 1 g PO DAILY #90 tab 05/26/20 02/15/21 Rx vit C 250 mg-vit E 90 mg-zinc 40 1 cap PO BID 06/12/20 02/15/21 History mg-copper 1 [id number] capsule (PreserVision AREDS-2) losartan 50 mg tablet 50 mg PO DAILY #90 tab 08/28/20 02/15/21 Rx hydrochlorothiazide 12.5 mg capsule 12.5 mg PO DAILY #30 cap 11/10/20 02/15/21 Rx finasteride 5 mg tablet 5 mg PO QPM #90 tab 11/30/20 02/15/21 Rx cholecalciferol (vitamin D3) 25 0 mcg PO DAILY 02/15/21 02/15/21 History mcg (1,000 unit) tablet (Vitamin D3) 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 Secondary hyperparathyroidism Varicose veins of both legs with edema Surgical History History of bladder surgery TURBT (05/12/18): LMA#[address] [facility] History of carpal tunnel release R/L History of colonoscopy History of hemorrhoidectomy History of lumbar fusion Lumbar History of partial thyroidectomy Goiter excision History of tooth extraction S/P ureteral stent placement Status post insertion of spinal cord stimulator 19+ years ago > no longer functioning but patient states he was advised not to remote unless it gives him issues Family History Mother Hypertension Denies family history of Ovarian cancer Prostate cancer Myocardial infarction Breast cancer Lung cancer Colorectal cancer Social History Smoking Status: Never smoker Tobacco Type: Cigarettes and Cigars Age Quit Using Tobacco: 54; Second Hand Exposure: No; Hx Alcohol Use: No Hx Substance Use: No Preferred Language: Indonesian Communication Ability: Effective Visual Impairment: Limited Hearing Ability: Normal Health And Safety Director Required: No Beliefs That Will Affect Care: None marital status: Current Living Situation: Spouse current occupational status: retired How many Children do You have: 5 Feels Safe at Home: Yes Childhood Exposure to Second-Hand Smoke: No Diet Comment: regular caffeine: No Dental Care, Regularly: Yes Physical Activity Frequency: Daily Seatbelt Use: always Sunscreen Use: No Assistive Devices: Cane, Denture - Upper and Glasses Review of Systems 2 Constitutional: + fever, + body aches, + fatigue and + weakness; no chills, no weight loss and no weight gain Eyes: as per Subjective / HPI Respiratory: no cough, no chest congestion, no dyspnea and no dyspnea on exertion Cardiovascular: no chest pain, no orthopnea, no palpitations, no lightheadedness and no edema Gastrointestinal: no abdominal pain, no nausea, no vomiting, no constipation and no diarrhea/loose stools Genitourinary: + dysuria; no difficulty urinating, no hematuria, no flank pain or no urinary urgency Musculoskeletal: no back pain, no neck pain, no joint pain, no stiffness and no myalgia Integumentary: no rash Neurologic: no gait abnormality, no unsteadiness, no falls and no generalized weakness Physical Exam Constitutional: cooperative; no acute distress Neck: trachea midline, no thyromegaly Respiratory: normal respiratory effort Auscultation: lungs clear to auscultation bilaterally; no crackles, no rales, no rhonchi and no wheezes Cardiovascular: Rate/Rhythm: regular rate and regular rhythm Heart Sounds: normal S1, normal S2 and + murmur Gastrointestinal (Abdomen): Inspection/Auscultation: abdomen normal to inspection Percussion/Palpation: abdomen soft; abdomen nontender, no guarding, abdomen not rigid and no hepatosplenomegaly no flank tenderness Skin: no rashes, warm and dry Results & Data Results & Data ([facility]) Vital Signs (Past 12 Hours) Vital Signs Temp Pulse Pulse Resp BP BP Pulse Ox 02/15/21 17:30 93/55 L 94 02/15/21 17:00 102/55 L 94 02/15/21 16:30 98/53 L 94 02/15/21 16:00 94 H 22 132/66 95 02/15/21 15:39 92 H 26 H 141/74 H 97 02/15/21 15:35 37.9 C H 02/15/21 15:30 94 H 26 H 154/69 H 96 02/15/21 14:19 37 C 99 H 20 135/75 96 Laboratory Results Laboratory Results WBC 10.49 K/uL (4.8-10.8) 02/15/21 14:42 RBC 3.94 M/uL (4.7-6.1) L 02/15/21 14:42 Hgb 12.9 g/dL (14.0-18.0) L 02/15/21 14:42 Hct 39.1 % (42-52) L 02/15/21 14:42 MCV 99.2 fL (80-100) 02/15/21 14:42 MCH 32.7 pg (25-34) 02/15/21 14:42 MCHC 33.0 g/dL (32-36) 02/15/21 14:42 RDW Std Deviation 46.5 fL (36.4-46.3) H 02/15/21 14:42 RDW Coeff of [place]az[place] 12.7 % (11.5-14.5) 02/15/21 14:42 Plt Count 167 K/uL (130-400) 02/15/21 14:42 MPV 10.1 fL (7.4-10.4) 02/15/21 14:42 Immature Gran % (Auto) 0.4 % 02/15/21 14:42 Neut % (Auto) 87.4 % 02/15/21 14:42 Lymph % (Auto) 5.8 % 02/15/21 14:42 Hanson % (Auto) 6.1 % 02/15/21 14:42 Eos % (Auto) 0.2 % 02/15/21 14:42 Baso % (Auto) 0.1 % 02/15/21 14:42 Neut # (Auto) 9.17 K/uL (1.4-6.5) H 02/15/21 14:42 Lymph # (Auto) 0.61 K/uL (1.2-3.4) L 02/15/21 14:42 Hanson # (Auto) 0.64 K/uL (0.11-0.59) H 02/15/21 14:42 Eos # (Auto) 0.02 K/uL (0-0.5) 02/15/21 14:42 Baso # (Auto) 0.01 K/uL (0-0.2) 02/15/21 14:42 Immature Gran # (Auto) 0.04 K/uL (0.00-0.02) H 02/15/21 14:42 PT 10.6 Seconds (9.0-12.0) 02/15/21 15:58 INR 1.0 (0.9-1.1) 02/15/21 15:58 APTT 23.9 Seconds (21.0-31.0) 02/15/21 15:58 PTT Ratio 0.9 02/15/21 15:58 Sodium 134 mmol/L (136-145) L 02/15/21 14:42 Potassium 4.3 mmol/L (3.5-5.1) 02/15/21 14:42 Chloride 107 mmol/L (98-107) 02/15/21 14:42 Carbon Dioxide 19 mmol/L (21-32) L 02/15/21 14:42 Anion Gap 8.0 (3-11) 02/15/21 14:42 BUN 47 mg/dl (7-18) H 02/15/21 14:42 Creatinine 2.25 mg/dl (0.6-1.4) H 02/15/21 14:42 Est Cr Clr Drug Dosing Not Reportable 02/15/21 14:42 Est GFR ( Amer) 29.1 ml/min 02/15/21 14:42 Est GFR (Non-Af Amer) 25.1 ml/min 02/15/21 14:42 BUN/Creatinine Ratio 21.0 (10-20) H 02/15/21 14:42 Glucose 107 mg/dl (70-99) H 02/15/21 14:42 Lactate 0.9 mmol/L (0.4-2.0) 02/15/21 15:58 Calcium 8.8 mg/dl (8.5-10.1) 02/15/21 14:42 Magnesium 2.1 mg/dl (1.8-2.4) 02/15/21 16:01 Total Bilirubin 0.4 mg/dl (0.2-1) 02/15/21 14:42 AST 27 U/L (15-37) 02/15/21 14:42 ALT 28 (12-78) 02/15/21 14:42 Alkaline Phosphatase 119 U/L (45-117) H 02/15/21 14:42 Total Protein 7.4 gm/dl (6.4-8.2) 02/15/21 14:42 Albumin 3.0 gm/dl (3.4-5.0) L 02/15/21 14:42 Globulin 4.4 gm/dl (2.5-4.0) H 02/15/21 14:42 Albumin/Globulin Ratio 0.7 (0.9-2) L 02/15/21 14:42 Specimen Hemolysis 02/15/21 14:42 Urine Color Yellow 02/15/21 15:34 Urine Appearance Turbid (Clear) A 02/15/21 15:34 Urine pH 5.0 (4.5-7.5) 02/15/21 15:34 Ur Specific [place] 1.016 (1.000-1.030) 02/15/21 15:34 Urine Protein 2+ (Negative) H 02/15/21 15:34 Urine Glucose (UA) Negative (Negative) 02/15/21 15:34 Urine Ketones Negative (Negative) 02/15/21 15:34 Urine Blood 3+ (Negative) H 02/15/21 15:34 Urine Nitrite Negative (Negative) 02/15/21 15:34 Urine Bilirubin Negative (Negative) 02/15/21 15:34 Urine Urobilinogen Negative (Negative) 02/15/21 15:34 Ur Leukocyte Esterase 3+ (Negative) H 02/15/21 15:34 Urine WBC (Auto) >30 /hpf (0-5) H 02/15/21 15:34 Urine RBC (Auto) 10-30 /hpf (0-4) H 02/15/21 15:34 U Hyaline Cast (Auto) 5-10 /lpf (0-5) H 02/15/21 15:34 U Epithel Cells (Auto) >30 /lpf (0-5) H 02/15/21 15:34 Urine Bacteria (Auto) 4+ (Negative) H 02/15/21 15:34 Urine Yeast Not Reportable 02/15/21 15:34 SARS-CoV-2 (PCR) NEGATIVE (Negative) 02/15/21 15:47 Influenza Type A (PCR) Negative (Neg) 02/15/21 15:47 Influenza Type B (PCR) Negative (Neg) 02/15/21 15:47 RSV (RT-PCR) Negative (Neg) 02/15/21 15:47 Impressions Chest X-Ray 02/15/21 14:23 XR chest 1V portable CLINICAL HISTORY: fever, weakness TECHNIQUE: Single frontal radiograph of the chest was obtained. Comparison: None available at the time of this dictation. FINDINGS: No lines and tubes are seen. Calcified aortic knob is seen. The lungs are clear. No evidence of pleural effusion or pneumothorax. IMPRESSION: No acute chest disease. ACT 112: Negative or not required by law. Electronically signed by: Osorio Andres M.D. 02/15/2021 4:46 PM Abdomen/Pelvis CT 02/15/21 15:28 CT abd pelvis wo con CLINICAL HISTORY: abd pain bladder ca fever TECHNIQUE: Helical axial images of the abdomen and pelvis were obtained. Automated dose lowering techniques and/or adjustment according to patient size were utilized for this exam. This exam was performed without intravenous contrast. COMPARISON: Comparison is made to CT abdomen pelvis 01/24/2021 FINDINGS: Lower chest: Bibasilar atelectasis is seen. There is a small pericardial effusion. Calcifications are seen about the tricuspid, mitral, and aortic v fox. Liver: Unremarkable. No focal lesions are seen. Gallbladder and biliary tree: No calcified gallstones. Normal caliber wall. No intra- or extrahepatic biliary ductal dilation. Pancreas: There is a cystic lesion in the pancreatic head measuring 39 x 25 mm, similar in appearance to prior exam. Spleen: Unremarkable. 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 Kidneys and ureters: A double-J stent is seen on the left. Scattered renal cysts are seen. Mild cortical thinning is seen on the left. Bladder: There is a tiny focus of air in the bladder, correlation with recent rotation is recommended. Mild bladder wall thickening is seen. Reproductive organs: Prostatomegaly is seen. Bowel: Diverticulosis is seen without evidence of diverticulitis. Lymph nodes Retroperitoneal: Unremarkable. Mesenteric: Unremarkable. Pelvic: Unremarkable. Peritoneum: Normal Vessels: Atherosclerotic calcifications are seen. Abdominal wall: Unremarkable. Bones: Degenerative changes in the visualized spine. IMPRESSION: 1. Bladder wall thickening is likely secondary to bladder outlet obstruction, and is unchanged from prior exam. There is a small focus of air in the bladder. Correlation with recent instrumentation and urinalysis is recommended to exclude cystitis. Otherwise no acute abnormalities are seen. 2. Nephroureteral stent on the left with remaining hydroureteronephrosis. 3. 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 ACT 112: Negative or not required by law. Electronically signed by: Osorio Andres M.D. 02/15/2021 4:40 PM PG Care Time/CCT Total # of Minutes Spent Total Time Spent with Patient: Total time spent is greater than 50% in coordination of care (as documented) at patient's floor/unit and/or counseling patient: Coding Level of Care Code 73669 Initial Inpt Care Lvl 3 Diagnoses Recurrent bladder transitional cell carcinoma C67.9 MICHELLE (acute kidney injury) N17.9 Pyelonephritis N12 Hypertension I10 Hyperlipidemia E78.5
--- NOTE | 2021-02-15 18:51 | Emergency Department Note ---
History of Present Illness General Chief complaint: Fever Stated complaint: FEVER, REF BY Time Seen by Provider: 02/15/21 15:15 History of Present Illness Provider complaint: Fever weakness Onset (ago): day(s) 2 Maximum Pain Intensity: 4 Associated symptoms: + cough, + fever/chills (T-max 102) and + weakness; no headaches or no nausea/vomiting 89-year-old male presents emergency department for fever and weakness. Daughter reports the patient was having a T-max of 102 at home earlier today and received Tylenol at 8 AM. She reports patient is had a cough. Patient is currently being treated for bladder cancer by urology Dr. Rodriguez. He is 1 who recommended they come into the emergency department today. No nausea vomiting or diarrhea. Patient is vaccine against COVID-19. Home Medications Medication Instructions Recorded Confirmed Type docusate sodium 100 mg capsule 100 mg PO QPM 04/22/18 02/15/21 History (Colace) melatonin 3 mg tablet 5 mg PO HS 04/22/18 02/15/21 History methenamine hippurate 1 gram tablet 1 g PO DAILY #90 tab 05/26/20 02/15/21 Rx vit C 250 mg-vit E 90 mg-zinc 40 1 cap PO BID 06/12/20 02/15/21 History mg-copper 1 [id number] capsule (PreserVision AREDS-2) losartan 50 mg tablet 50 mg PO DAILY #90 tab 08/28/20 02/15/21 Rx hydrochlorothiazide 12.5 mg capsule 12.5 mg PO DAILY #30 cap 11/10/20 02/15/21 Rx finasteride 5 mg tablet 5 mg PO QPM #90 tab 11/30/20 02/15/21 Rx cholecalciferol (vitamin D3) 25 0 mcg PO DAILY 02/15/21 02/15/21 History mcg (1,000 unit) tablet (Vitamin D3) Allergies Allergy/AdvReac Type Severity Reaction Status Date / Time caffeine Allergy Intermediate Throat Verified 02/15/21 16:24 swelling, hives, redness nitrofurantoin Allergy Unknown Unknown Verified 02/15/21 16:24 Past Med/Surg History Medical History Anemia Aortic stenosis, moderate Moderate aortic stenosis (SAHRA 1.1cm2, MG 22.8mmhg) per 3/26/19 Arthritis Benign prostatic hyperplasia with urinary obstruction Bifascicular block Chronic, dating back to at least 2017 Chronic kidney disease, stage 3 (moderate) Gout Hyperlipidemia Hypertension Insomnia Macular degeneration Pancreatic lesion 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 Secondary hyperparathyroidism Varicose veins of both legs with edema Surgical History History of bladder surgery TURBT (05/12/18): LMA#5 iGel at [facility] History of carpal tunnel release R/L History of colonoscopy History of hemorrhoidectomy History of lumbar fusion Lumbar History of partial thyroidectomy Goiter excision History of tooth extraction S/P ureteral stent placement Status post insertion of spinal cord stimulator 19+ years ago > no longer functioning but patient states he was advised not to remote unless it gives him issues Family History Mother Hypertension Denies family history of Ovarian cancer Prostate cancer Myocardial infarction Breast cancer Lung cancer Colorectal cancer Social History Smoking Status: Never smoker Tobacco Type: Cigarettes and Cigars Age Quit Using Tobacco: 54; Second Hand Exposure: No; Hx Alcohol Use: No Hx Substance Use: No Preferred Language: Syriac Communication Ability: Effective Visual Impairment: Limited Hearing Ability: Normal Seed Yeast Operator Required: No Beliefs That Will Affect Care: None marital status: Current Living Situation: Spouse current occupational status: retired How many Children do You have: 5 Feels Safe at Home: Yes Childhood Exposure to Second-Hand Smoke: No Diet Comment: regular caffeine: No Dental Care, Regularly: Yes Physical Activity Frequency: Daily Seatbelt Use: always Sunscreen Use: No Assistive Devices: Cane, Denture - Upper and Glasses Review of Systems A total of 10 systems reviewed and were otherwise negative Physical Exam Vital Signs Vital Signs - 24 hr 02/15/21 14:19 02/15/21 15:30 02/15/21 15:35 Temperature 37 C 37.9 C H Temperature Source Temporal Artery Scan Oral Pulse Rate 99 H Pulse Rate [Apical] 94 H Pulse Rate from SpO2 Sensor Respiratory Rate 20 26 H Respiratory Effort / Characteristics Non-Labored Spontaneous Respiratory Depth Normal Respiratory Pattern Regular Blood Pressure 135/75 Blood Pressure [Right Arm] 154/69 H Blood Pressure Mean 95 Blood Pressure Mean [Right Arm] 97 Pulse Oximetry 96 96 Oxygen Delivery Method Room Air Room Air Sepsis Recent Fever Within 48 Hours Yes Sepsis New/Unexplained Change in Mental Status No Sepsis Action Taken by Nursing No Action Required 02/15/21 15:39 02/15/21 16:00 02/15/21 16:30 Temperature Temperature Source Pulse Rate 92 H 94 H Pulse Rate [Apical] Pulse Rate from SpO2 Sensor 90 96 H 84 Respiratory Rate 26 H 22 Respiratory Effort / Characteristics Respiratory Depth Respiratory Pattern Blood Pressure 141/74 H 132/66 98/53 L Blood Pressure [Right Arm] Blood Pressure Mean 96 88 68 Blood Pressure Mean [Right Arm] Pulse Oximetry 97 95 94 Oxygen Delivery Method Room Air Sepsis Recent Fever Within 48 Hours Sepsis New/Unexplained Change in Mental Status Sepsis Action Taken by Nursing 02/15/21 17:00 02/15/21 17:30 02/15/21 18:00 Temperature Temperature Source Pulse Rate Pulse Rate [Apical] Pulse Rate from SpO2 Sensor 80 76 76 Respiratory Rate Respiratory Effort / Characteristics Respiratory Depth Respiratory Pattern Blood Pressure 102/55 L 93/55 L 116/56 L Blood Pressure [Right Arm] Blood Pressure Mean 70 67 76 Blood Pressure Mean [Right Arm] Pulse Oximetry 94 94 94 Oxygen Delivery Method Room Air Room Air Sepsis Recent Fever Within 48 Hours Sepsis New/Unexplained Change in Mental Status Sepsis Action Taken by Nursing 02/15/21 18:31 Temperature Temperature Source Pulse Rate Pulse Rate [Apical] Pulse Rate from SpO2 Sensor 77 Respiratory Rate Respiratory Effort / Characteristics Respiratory Depth Respiratory Pattern Blood Pressure Blood Pressure [Right Arm] Blood Pressure Mean Blood Pressure Mean [Right Arm] Pulse Oximetry 96 Oxygen Delivery Method Room Air Sepsis Recent Fever Within 48 Hours Sepsis New/Unexplained Change in Mental Status Sepsis Action Taken by Nursing Physical Exam GENERAL: He is oriented to person, place, and time. He appears well-developed and well-nourished. He does not appear distressed. HENT: Exam performed. - Head: Normocephalic and atraumatic. - Right Ear: External ear normal. No mastoid tenderness. - Left Ear: External ear normal. No mastoid tenderness. - Mouth/Throat: The oropharynx is clear and moist. No trismus in the jaw. No dental abscesses or uvula swelling. No oropharyngeal exudate or tonsillar abscesses. EYES: Conjunctivae and EOM are normal. Pupils are equal, round, and reactive to light. Right eye exhibits no discharge. Left eye exhibits no discharge. No scleral icterus. NECK: Normal range of motion. Neck supple. No JVD present. No spinous process tenderness present. No carotid bruit present. No rigidity. No tracheal deviation and normal range of motion present. No Brudzinski's sign and no Kernig's sign noted. CV: Normal rate, regular rhythm, normal heart sounds and intact distal pulses. There is no peripheral edema. Palpable radial pulses bue. PULM/CHEST: Effort normal and breath sounds normal. No respiratory distress. No stridor. He has no wheezes. He has no rales. - Chest Wall: He exhibits no tenderness. ABD: The abdomen is soft. Bowel sounds are normal. He has no distension. No mass is present. There is no tenderness. There is no rebound, no guarding, no Gutierrez's sign and no tenderness at McBurney's point. Rovsig negative. MUSC/SKEL: Normal range of motion. There is no peripheral edema, tenderness or d eformity. LYMPH: No cervical adenopathy. NEURO: He is alert and oriented to person, place, and time. He has normal strength. No cranial nerve deficit or sensory deficit. GCS eye subscore is 4. GCS verbal subscore is 5. GCS motor subscore is 6. Cerebellar tests wnl. SKIN: Skin is warm and dry. He is not diaphoretic. PSYCH: He has a normal mood and affect. Behavior is normal. Judgment and thought content normal. Course Course 1515: The patient was evaluated in room B8. A complete history and physical exam was performed Cardiac monitoring: An order was placed for continuous cardiac monitoring. The monitor shows a rate of 90 with sinusrhythm 1700: Vital signs stable. Labs show normal white blood cell count and normal lactic acid. Urine does appear to be source of fever and infection. Creatinine up to 2.25 up from baseline of 1.4. IV fluids started for the patient. CT does make mention of bladder wall thickening small focus of air in the bladder, this is most likely due to the patient's recent bladder procedure. Chest x-ray negative. Covid negative. Patient be treated with Rocephin 1 g IV piggyback admitted to the [facility] Hospitalist team Dr. Henry notified. Administered Medications Sodium Chloride (Nss) 500 mls @ 125 mls/hr IV .Q4H VIKRAM Stop: 03/17/21 15:59 Last Admin: 02/15/21 16:25 Dose: Not Given Documented by: [id number] Discontinued Medications Acetaminophen (Ofirmev) 1,000 mg in 100 mls @ 400 mls/hr IV NOW STA Stop: 02/15/21 15:42 Last Infusion: 02/15/21 15:55 Dose: 0 mls/hr Documented by: [id number] Admin: 02/15/21 15:40 Dose: 400 mls/hr Documented by: [id number] Sodium Chloride (Nss) 500 mls @ 999 mls/hr IV .Q31M ONE Stop: 02/15/21 16:13 Last Infusion: 02/15/21 16:17 Dose: 0 mls/hr Documented by: [id number] Admin: 02/15/21 15:46 Dose: 999 mls/hr Documented by: [id number] Sodium Chloride (Nss) 500 mls @ 125 mls/hr IV .Q4H [facility] Stop: 02/15/21 16:15 Last Admin: 02/15/21 16:16 Dose: 125 mls/hr Documented by: [id number] Sodium Chloride (Nss 1000ml) 500 mls @ 999 mls/hr IV .Q31M ONE Stop: 02/15/21 16:16 Last Admin: 02/15/21 16:25 Dose: Not Given Documented by: [id number] Ceftriaxone Sodium (Rocephin) 1,000 mg in 50 mls @ 100 mls/hr IV NOW STA Stop: 02/15/21 16:46 Last Infusion: 02/15/21 17:02 Dose: 0 mls/hr Documented by: [id number] Admin: 02/15/21 16:32 Dose: 100 mls/hr Documented by: [id number] Medical Decision Making Laboratory Data Result diagrams: 02/15/21 14:42 02/15/21 14:42 Lab Results 02/15/21 02/15/21 02/15/21 Range/Units 14:42 14:42 15:34 WBC 10.49 (4.8-10.8) K/uL RBC 3.94 L (4.7-6.1) M/uL Hgb 12.9 L (14.0-18.0) g/dL Hct 39.1 L (42-52) % MCV 99.2 (80-100) fL MCH 32.7 (25-34) pg MCHC 33.0 (32-36) g/dL RDW Std Deviation 46.5 H (36.4-46.3) fL RDW Coeff of Jazmyne 12.7 (11.5-14.5) % Plt Count 167 (130-400) K/uL MPV 10.1 (7.4-10.4) fL Immature Gran % (Auto) 0.4 % Neut % (Auto) 87.4 % Lymph % (Auto) 5.8 % [place] % (Auto) 6.1 % Eos % (Auto) 0.2 % Baso % (Auto) 0.1 % Neut # (Auto) 9.17 H (1.4-6.5) K/uL Lymph # (Auto) 0.61 L (1.2-3.4) K/uL [place] # (Auto) 0.64 H (0.11-0.59) K/uL Eos # (Auto) 0.02 (0-0.5) K/uL Baso # (Auto) 0.01 (0-0.2) K/uL Immature Gran # (Auto) 0.04 H (0.00-0.02) K/uL PT (9.0-12.0) Seconds INR (0.9-1.1) APTT (21.0-31.0) Seconds PTT Ratio Sodium 134 L (136-145) mmol/L Potassium 4.3 (3.5-5.1) mmol/L Chloride 107 (98-107) mmol/L Carbon Dioxide 19 L (21-32) mmol/L Anion Gap 8.0 (3-11) BUN 47 H (7-18) mg/dl Creatinine 2.25 H (0.6-1.4) mg/dl Est Cr Clr Drug Dosing Not Reportable Est GFR ( Amer) 29.1 ml/min Est GFR (Non-Af Amer) 25.1 ml/min BUN/Creatinine Ratio 21.0 H (10-20) Glucose 107 H (70-99) mg/dl Lactate (0.4-2.0) mmol/L Calcium 8.8 (8.5-10.1) mg/dl Magnesium (1.8-2.4) mg/dl Total Bilirubin 0.4 (0.2-1) mg/dl AST 27 (15-37) U/L ALT 28 (12-78) Alkaline Phosphatase 119 H (45-117) U/L Total Protein 7.4 (6.4-8.2) gm/dl Albumin 3.0 L (3.4-5.0) gm/dl Globulin 4.4 H (2.5-4.0) gm/dl Albumin/Globulin Ratio 0.7 L (0.9-2) Specimen Hemolysis Urine Color Yellow Urine Appearance Turbid A (Clear) Urine pH 5.0 (4.5-7.5) Ur Specific [place] 1.016 (1.000-1.030) Urine Protein 2+ H (Negative) Urine Glucose (UA) Negative (Negative) Urine Ketones Negative (Negative) Urine Blood 3+ H (Negative) Urine Nitrite Negative (Negative) Urine Bilirubin Negative (Negative) Urine Urobilinogen Negative (Negative) Ur Leukocyte Esterase 3+ H (Negative) Urine WBC (Auto) >30 H (0-5) /hpf Urine RBC (Auto) 10-30 H (0-4) /hpf U Hyaline Cast (Auto) 5-10 H (0-5) /lpf U Epithel Cells (Auto) >30 H (0-5) /lpf Urine Bacteria (Auto) 4+ H (Negative) Urine Yeast Not Reportable SARS-CoV-2 (PCR) (Negative) Influenza Type A (PCR) (Neg) Influenza Type B (PCR) (Neg) RSV (RT-PCR) (Neg) 02/15/21 02/15/21 02/15/21 Range/Units 15:47 15:58 15:58 WBC (4.8-10.8) K/uL RBC (4.7-6.1) M/uL Hgb (14.0-18.0) g/dL Hct (42-52) % MCV (80-100) fL MCH (25-34) pg MCHC (32-36) g/dL RDW Std Deviation (36.4-46.3) fL RDW Coeff of Jazmyne (11.5-14.5) % Plt Count (130-400) K/uL MPV (7.4-10.4) fL Immature Gran % (Auto) % Neut % (Auto) % Lymph % (Auto) % [place] % (Auto) % Eos % (Auto) % Baso % (Auto) % Neut # (Auto) (1.4-6.5) K/uL Lymph # (Auto) (1.2-3.4) K/uL [place] # (Auto) (0.11-0.59) K/uL Eos # (Auto) (0-0.5) K/uL Baso # (Auto) (0-0.2) K/uL Immature Gran # (Auto) (0.00-0.02) K/uL PT 10.6 (9.0-12.0) Seconds INR 1.0 (0.9-1.1) APTT 23.9 (21.0-31.0) Seconds PTT Ratio 0.9 Sodium (136-145) mmol/L Potassium (3.5-5.1) mmol/L Chloride (98-107) mmol/L Carbon Dioxide (21-32) mmol/L Anion Gap (3-11) BUN (7-18) mg/dl Creatinine (0.6-1.4) mg/dl Est Cr Clr Drug Dosing Est GFR ( Amer) ml/min Est GFR (Non-Af Amer) ml/min BUN/Creatinine Ratio (10-20) Glucose (70-99) mg/dl Lactate 0.9 (0.4-2.0) mmol/L Calcium (8.5-10.1) mg/dl Magnesium (1.8-2.4) mg/dl Total Bilirubin (0.2-1) mg/dl AST (15-37) U/L ALT (12-78) Alkaline Phosphatase (45-117) U/L Total Protein (6.4-8.2) gm/dl Albumin (3.4-5.0) gm/dl Globulin (2.5-4.0) gm/dl Albumin/Globulin Ratio (0.9-2) Specimen Hemolysis Urine Color Urine Appearance (Clear) Urine pH (4.5-7.5) Ur Specific [place] (1.000-1.030) Urine Protein (Negative) Urine Glucose (UA) (Negative) Urine Ketones (Negative) Urine Blood (Negative) Urine Nitrite (Negative) Urine Bilirubin (Negative) Urine Urobilinogen (Negative) Ur Leukocyte Esterase (Negative) Urine WBC (Auto) (0-5) /hpf Urine RBC (Auto) (0-4) /hpf U Hyaline Cast (Auto) (0-5) /lpf U Epithel Cells (Auto) (0-5) /lpf Urine Bacteria (Auto) (Negative) Urine Yeast SARS-CoV-2 (PCR) NEGATIVE (Negative) Influenza Type A (PCR) Negative (Neg) Influenza Type B (PCR) Negative (Neg) RSV (RT-PCR) Negative (Neg) 02/15/21 Range/Units 16:01 WBC (4.8-10.8) K/uL RBC (4.7-6.1) M/uL Hgb (14.0-18.0) g/dL Hct (42-52) % MCV (80-100) fL MCH (25-34) pg MCHC (32-36) g/dL RDW Std Deviation (36.4-46.3) fL RDW Coeff of Jazmyne (11.5-14.5) % Plt Count (130-400) K/uL MPV (7.4-10.4) fL Immature Gran % (Auto) % Neut % (Auto) % Lymph % (Auto) % [place] % (Auto) % Eos % (Auto) % Baso % (Auto) % Neut # (Auto) (1.4-6.5) K/uL Lymph # (Auto) (1.2-3.4) K/uL [place] # (Auto) (0.11-0.59) K/uL Eos # (Auto) (0-0.5) K/uL Baso # (Auto) (0-0.2) K/uL Immature Gran # (Auto) (0.00-0.02) K/uL PT (9.0-12.0) Seconds INR (0.9-1.1) APTT (21.0-31.0) Seconds PTT Ratio Sodium (136-145) mmol/L Potassium (3.5-5.1) mmol/L Chloride (98-107) mmol/L Carbon Dioxide (21-32) mmol/L Anion Gap (3-11) BUN (7-18) mg/dl Creatinine (0.6-1.4) mg/dl Est Cr Clr Drug Dosing Est GFR ( Amer) ml/min Est GFR (Non-Af Amer) ml/min BUN/Creatinine Ratio (10-20) Glucose (70-99) mg/dl Lactate (0.4-2.0) mmol/L Calcium (8.5-10.1) mg/dl Magnesium 2.1 (1.8-2.4) mg/dl Total Bilirubin (0.2-1) mg/dl AST (15-37) U/L ALT (12-78) Alkaline Phosphatase (45-117) U/L Total Protein (6.4-8.2) gm/dl Albumin (3.4-5.0) gm/dl Globulin (2.5-4.0) gm/dl Albumin/Globulin Ratio (0.9-2) Specimen Hemolysis Urine Color Urine Appearance (Clear) Urine pH (4.5-7.5) Ur Specific [place] (1.000-1.030) Urine Protein (Negative) Urine Glucose (UA) (Negative) Urine Ketones (Negative) Urine Blood (Negative) Urine Nitrite (Negative) Urine Bilirubin (Negative) Urine Urobilinogen (Negative) Ur Leukocyte Esterase (Negative) Urine WBC (Auto) (0-5) /hpf Urine RBC (Auto) (0-4) /hpf U Hyaline Cast (Auto) (0-5) /lpf U Epithel Cells (Auto) (0-5) /lpf Urine Bacteria (Auto) (Negative) Urine Yeast SARS-CoV-2 (PCR) (Negative) Influenza Type A (PCR) (Neg) Influenza Type B (PCR) (Neg) RSV (RT-PCR) (Neg) Imaging Data Radiologist's Impression: Chest X-Ray 02/15/21 14:23 XR chest 1V portable CLINICAL HISTORY: fever, weakness TECHNIQUE: Single frontal radiograph of the chest was obtained. Comparison: None available at the time of this dictation. FINDINGS: No lines and tubes are seen. Calcified aortic knob is seen. The lungs are clear. No evidence of pleural effusion or pneumothorax. IMPRESSION: No acute chest disease. ACT 112: Negative or not required by law. Electronically signed by: Osorio Andres M.D. 02/15/2021 4:46 PM Abdomen/Pelvis CT 02/15/21 15:28 CT abd pelvis wo con CLINICAL HISTORY: abd pain bladder ca fever TECHNIQUE: Helical axial images of the abdomen and pelvis were obtained. Automat ed dose lowering techniques and/or adjustment according to patient size were utilized for this exam. This exam was performed without intravenous contrast. COMPARISON: Comparison is made to CT abdomen pelvis 01/24/2021 FINDINGS: Lower chest: Bibasilar atelectasis is seen. There is a small pericardial effusion. Calcifications are seen about the tricuspid, mitral, and aortic valves. Liver: Unremarkable. No focal lesions are seen. Gallbladder and biliary tree: No calcified gallstones. Normal caliber wall. No intra- or extrahepatic biliary ductal dilation. Pancreas: There is a cystic lesion in the pancreatic head measuring 39 x 25 mm, similar in appearance to prior exam. Spleen: Unremarkable. 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 Kidneys and ureters: A double-J stent is seen on the left. Scattered renal cysts are seen. Mild cortical thinning is seen on the left. Bladder: There is a tiny focus of air in the bladder, correlation with recent rotation is recommended. Mild bladder wall thickening is seen. Reproductive organs: Prostatomegaly is seen. Bowel: Diverticulosis is seen without evidence of diverticulitis. Lymph nodes Retroperitoneal: Unremarkable. Mesenteric: Unremarkable. Pelvic: Unremarkable. Peritoneum: Normal Vessels: Atherosclerotic calcifications are seen. Abdominal wall: Unremarkable. Bones: Degenerative changes in the visualized spine. IMPRESSION: 1. Bladder wall thickening is likely secondary to bladder outlet obstruction, a nd is unchanged from prior exam. There is a small focus of air in the bladder. Correlation with recent instrumentation and urinalysis is recommended to exclude cystitis. Otherwise no acute abnormalities are seen. 2. Nephroureteral stent on the left with remaining hydroureteronephrosis. 3. 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 ACT 112: Negative or not required by law. Electronically signed by: Osorio Andres M.D. 02/15/2021 4:40 PM ECG Data Indication: + weakness Rate (beats per minute): 87 Rhythm: + normal sinus ECG Intervals/blocks: + First degree AV block, + Right Bundle branch block and + Normal QT-c ECG ST segments: + Normal ST segments Additional Comments: ID [id number] QRS 132 QTC 462 MDM Narrative Vital signs stable. Labs show normal white blood cell count and normal lactic acid. Urine does appear to be source of fever and infection. Creatinine up to 2.25 up from baseline of 1.4. IV fluids started for the patient. CT does make mention of bladder wall thickening small focus of air in the bladder, this is most likely due to the patient's recent bladder procedure. Chest x-ray negative. Covid negative. Patient be treated with Rocephin 1 g IV piggyback admitted to the [facility] hospitalist team Dr. Henry notified. Impression & Plan MICHELLE (acute kidney injury), Acute UTI Discharge Plan Visit Data Chief Complaint: Fever Stated Complaint: FEVER, REF BY DR Discharge Problem: MICHELLE (acute kidney injury), Acute UTI Patient Disposition: Being Evaluated by Hospitalist Forms Stand Alone Forms: My [facility] Prescriptions Prescriptions: No Action methenamine hippurate 1 gram tablet 1 g PO DAILY Qty: 90 RF: 1 losartan 50 mg tablet 50 mg PO DAILY Qty: 90 RF: 1 hydrochlorothiazide 12.5 mg capsule 12.5 mg PO DAILY Qty: 30 RF: 5 finasteride 5 mg tablet 5 mg PO QPM Qty: 90 RF: 1 melatonin 3 mg Tablet 5 mg PO HS RF: 0 docusate sodium [Colace] 100 mg Capsule 100 mg PO QPM RF: 0 PreserVision AREDS-2 250-90-40-1 mg Capsule 1 cap PO BID RF: 0 cholecalciferol (vitamin D3) [Vitamin D3] 25 mcg (1,000 unit) Tablet 0 mcg PO DAILY RF: 0 Referrals Referrals: Danuta Kerr DO [Primary Care Provider] -
[2021-02-15] MEDS ORDERED: ACETAMINOPHEN 325 MG TAB PO PRN (20:47)
[2021-02-15] MEDS ORDERED: ONDANSETRON INJ 2 MG/ML 2 ML VIAL IV PRN (20:47)
--- NOTE | 2021-02-15 21:49 | Urology Consultation ---
Date of Consultation February 15, 2021 Assessment & Plan (1) Pyelonephritis: Patient has been admitted by the hospitalist proceeding as follows: Patient is being hydrated with IV fluids He has been placed on antibiotics in form of Rocephin. Blood and urine cultures have been sent. Antibiotics can be tailored based on the results of these. Analgesics and antipyretics have been ordered Continuation of his BCG treatment will be based on progression of his current infection History of Present Illness Reason for Consultation: History of bladder cancer Attending Physician: Zi Henry DO History of Present Illness This is an 89-year-old male who has a known history of bladder cancer. He is followed locally by Dr. Rodriguez. Due to the patient's history of bladder cancer he has been receiving BCG therapy most recently on 02/12/2021. His next scheduled treatment is scheduled for 02/19/2021. He is also followed by urology at [facility] and is tentatively scheduled for ureteroscopy with laser ablation of his tumor. Patient notes he was doing well but approximately 24 hours after his most recent BCG therapy he developed a fever. He notes that his fevers got progressively worse with a reported maximum fever of 102. Patient does report some back pain but denies any abdominal pain. He also denies any nausea vomiting. He denies any dysuria, hematuria, or urinary frequency. Because of his ongoing fevers he was instructed to go to the emergency department for further evaluation. In the emergency department the patient was noted to be febrile with a temperature of 37.9. He had labs and imaging which I independently reviewed. A chest x-ray showed no evidence of pneumonia or CHF. A CT scan of patient's abdomen showed bladder wall thickening which was unchanged from prior CT scans. An nephroureteral stent was in place with some left hydroureteronephrosis. Labs include a CBC her white blood cell count was normal. His hemoglobin and hematocrit were 12.9 and 39.1. Platelet count was noted to be within normal range. Coagulation studies were noted to be normal. Chemistry profile showed a sodium is 134. Potassium was noted be within normal range. His BUN and creatinine were 47 and 2.25 respectively. A urinalysis was performed that showed turbid urine with negative nitrites. He was noted to have a 3+ positive leukocyte esterase along with pyuria consisting of greater than 30 white blood cells per high-power field. 4+ bacteria was noted. Patient was tested for COVID-19, influenza A, influenza B, and RSV all of which were negative. At the time of my interview is resting comfortably in bed in no distress Allergies Allergy/AdvReac Type Severity Reaction Status Date / Time caffeine Allergy Intermediate Throat Verified 02/15/21 16:24 swelling, hives, redness nitrofurantoin Allergy Unknown Unknown Verified 02/15/21 16:24 Home Medications Medication Instructions Recorded Confirmed Type docusate sodium 100 mg capsule 100 mg PO QPM 04/22/18 02/15/21 History (Colace) melatonin 3 mg tablet 5 mg PO HS 04/22/18 02/15/21 History methenamine hippurate 1 gram tablet 1 g PO DAILY #90 tab 05/26/20 02/15/21 Rx vit C 250 mg-vit E 90 mg-zinc 40 1 cap PO BID 06/12/20 02/15/21 History mg-copper 1 rt-itjpon-yvcxar capsule (PreserVision AREDS-2) losartan 50 mg tablet 50 mg PO DAILY #90 tab 08/28/20 02/15/21 Rx hydrochlorothiazide 12.5 mg capsule 12.5 mg PO DAILY #30 cap 11/10/20 02/15/21 Rx finasteride 5 mg tablet 5 mg PO QPM #90 tab 11/30/20 02/15/21 Rx cholecalciferol (vitamin D3) 25 0 mcg PO DAILY 02/15/21 02/15/21 History mcg (1,000 unit) tablet (Vitamin D3) Patient History Medical History Anemia Aortic stenosis, moderate Moderate aortic stenosis (SAHRA 1.1cm2, MG 22.8mmhg) per 05/05/18 Arthritis Benign prostatic hyperplasia with urinary obstruction Bifascicular block Chronic, dating back to at least 2017 Chronic kidney disease, stage 3 (moderate) Gout Hyperlipidemia Hypertension Insomnia Macular degeneration Pancreatic lesion 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 Secondary hyperparathyroidism Varicose veins of both legs with edema Surgical History History of bladder surgery TURBT (05/12/18): LMA#5 iGel at [facility] History of carpal tunnel release R/L History of colonoscopy History of hemorrhoidectomy History of lumbar fusion Lumbar History of partial thyroidectomy Goiter excision History of tooth extraction S/P ureteral stent placement Status post insertion of spinal cord stimulator 19+ years ago > no longer functioning but patient states he was advised not to remote unless it gives him issues Family History Mother Hypertension Denies family history of Ovarian cancer Prostate cancer Myocardial infarction Breast cancer Lung cancer Colorectal cancer Social History Smoking Status: Former smoker Tobacco Type: Cigarettes and Cigars Age Quit Using Tobacco: 54; Second Hand Exposure: No; Hx Alcohol Use: No Hx Substance Use: No Preferred Language: Salvadorean Communication Ability: Effective Visual Impairment: Limited Hearing Ability: Normal Figure Clerk Required: No Beliefs That Will Affect Care: None marital status: Current Living Situation: Spouse current occupational status: retired How many Children do You have: 5 Feels Safe at Home: Yes Safety Concerns: Feels Safe At This Time Childhood Exposure to Second-Hand Smoke: No Diet Comment: regular caffeine: No Dental Care, Regularly: Yes Physical Activity Frequency: Daily Seatbelt Use: always Sunscreen Use: No Assistive Devices: Denture - Upper and Glasses Review of Systems Constitutional: + fever and + chills Eyes: + blind spots Ear, Nose, Mouth, Throat: no ear pain Respiratory: no cough and no dyspnea Cardiovascular: no chest pain Gastrointestinal: no abdominal pain, no nausea and no vomiting Genitourinary: + flank pain (Bilateral); no dysuria, no urinary frequency or no hematuria Musculoskeletal: + back pain Integumentary: no rash Neurologic: no localized weakness Physical Exam Constitutional: well developed and well nourished; no acute distress Eyes: Wears glasses ENMT: Ears: no hearing impairment Mouth: no oropharynx abnormality Neck: trachea midline Respiratory: normal respiratory effort, lungs clear to auscultation Cardiovascular: Rate/Rhythm: regular rate and regular rhythm Gastrointestinal (Abdomen): Soft, nontender, nondistended Musculoskeletal: No calf tenderness Skin: no rashes Neurologic: moves all extremities Psychiatric: A+Ox3, euthymic affect Genitourinary: + CVA tenderness (Bilateral with percussion) Results & Data ([facility]) Vital Signs (Past 12 Hours) Vital Signs Temp Pulse Pulse Resp BP BP Pulse Ox 02/15/21 19:00 104 H 16 131/65 95 02/15/21 18:31 96 02/15/21 18:00 116/56 L 94 02/15/21 17:30 93/55 L 94 02/15/21 17:00 102/55 L 94 02/15/21 16:30 98/53 L 94 02/15/21 16:00 94 H 22 132/66 95 02/15/21 15:39 92 H 26 H 141/74 H 97 02/15/21 15:35 37.9 C H 02/15/21 15:30 94 H 26 H 154/69 H 96 02/15/21 14:19 37 C 99 H 20 135/75 96 PG Care Time/CCT Total # of Minutes Spent Total Time Spent with Patient: Total time spent is greater than 50% in coordination of care (as documented) at patient's floor/unit and/or counseling patient: Coding Level of Care Code 67091 Inpt Consult Level 5 Diagnoses Pyelonephritis N12
[2021-02-15] MEDS: DOCUSATE SODIUM 100 MG CAP PO SCH (22:30)
[2021-02-15] MEDS: FINASTERIDE 5 MG TAB PO SCH (22:30)
[2021-02-15] MEDS: HEPARIN SOD 5,000 UNIT/0.5 ML VIAL SQ SCH (22:30)
[2021-02-15] MEDS: MELATONIN 3 MG TAB PO SCH (22:31)
[2021-02-16 04:57] LABS: Basophils # (auto) 0.01 K/uL (0-0.2); Basophils % (auto) 0.1 %; Hematocrit (blood only) 36.2 % (42-52); Hemoglobin 11.7 g/dL (14.0-18.0); Immature Granulocytes # (auto) 0.03 K/uL (0.00-0.02); Immature Granulocytes % (auto) 0.4 %; Lymphocytes # (auto) 0.69 K/uL (1.2-3.4); Lymphocytes % (auto) 8.8 %; Mean Corpuscular Hgb Conc 32.3 g/dL (32-36); Mean Corpuscular Volume 98.9 fL (80-100); Mean Platelet Volume 10.2 fL (7.4-10.4); Monocytes # (auto) 0.68 K/uL (0.11-0.59); Monocytes % (auto) 8.7 %; Neutrophils # (auto) 6.45 K/uL (1.4-6.5); Platelet Count 147 K/uL (130-400); RDW Coefficient of Variation 12.8 % (11.5-14.5); RDW Standard Deviation 46.3 fL (36.4-46.3); Red Blood Count 3.66 M/uL (4.7-6.1); White Blood Count 7.86 K/uL (4.8-10.8)
[2021-02-16] MEDS: HEPARIN SOD 5,000 UNIT/0.5 ML VIAL SQ SCH ×3 (05:18→20:56)
[2021-02-16] MEDS: SODIUM CHLORIDE 0.9% 500 ML IV SCH ×2 (05:18→05:53)
[2021-02-16 05:21] LABS: BUN Creatinine Ratio 21.7 (10-20); Calcium 8.5 mg/dl (8.5-10.1); Creatinine Clr Calc Pharmacy 23.6 ml/min; Est GFR (African American) 32.4 ml/min; Est GFR (Non-African American) 27.9 ml/min; Magnesium 2.1 mg/dl (1.8-2.4)
[2021-02-16] MEDS: SODIUM CHLORIDE 0.9% 1000ML 1,000 ML IV SCH ×3 (06:01→22:29)
--- NOTE | 2021-02-16 06:47 | Electrocardiogram Report ---
Test Reason : Blood Pressure : / mmHG Vent. Rate : 087 BPM Atrial Rate : 087 BPM P-R Int : 208 ms QRS Dur : 132 ms QT Int : 384 ms P-R-T Axes : 073 -78 044 degrees QTc Int : 462 ms Poor data quality, interpretation may be adversely affected Sinus rhythm with Premature supraventricular complexes Left axis deviation Right bundle branch block Septal infarct , age undetermined Abnormal ECG When compared with ECG of 12-JUN-2020 11:51, Premature supraventricular complexes are now Present Confirmed by Jose M Stinson ([id number]) on 02/16/2021 6:47:08 AM Referred By: Confirmed By:Jose M Stinson
[2021-02-16] MEDS: CEROVITE ADV FORMULA TAB PO SCH (09:19)
[2021-02-16] MEDS: METHENAMINE HIPPURATE 1 GM TAB PO SCH (09:19)
[2021-02-16] MEDS: CHOLECALCIFEROL 1,000 UNITS 25 MCG TAB PO SCH (09:19)
[2021-02-16] MEDS ORDERED: MEROPENEM CONSULT ACTIVE PRN (10:19)
[2021-02-16] MEDS ORDERED: MEROPENEM 1,000 MG in SYRINGE 0 ML IV SCH (10:30)
[2021-02-16] MEDS ORDERED: MEROPENEM 500 MG in SYRINGE 0 ML IV SCH (11:00)
--- NOTE | 2021-02-16 12:19 | Urology Progress Note ---
Date of Service February 16, 2021 Assessment & Plan (1) Acute UTI: (2) MICHELLE (acute kidney injury): (3) Fever: (4) Recurrent bladder transitional cell carcinoma: Plan: 89yo M with a hx of recurrent bladder cancer admitted with fever, MICHELLE, and presumed UTI. - Plan of care reviewed with Dr. Nuñez, on-call urologist. - Pt with hx of recurrent bladder cancer receiving BCG therapy, most recently on 02/12/2021. - Afebrile at present - Tmax 38.0C earlier this morning - Labs reviewed - Wbc 7.86, Hemoglobin 11.7, Creatinine 2.06 - Continue to trend - Urine and blood cultures preliminary gram negative bacilli, follow cultures - No acute intervention warranted at this time. - Recommend transition from Ceftriaxone to Meropenem for pseudomonas coverage - Voiding spontaneously - Recommend bladder scan and consider placement Hess catheter pending results - Continue supportive care, antibiotic therapy, and close monitoring - Please consult our service urgently if patient develops fever >101F, intractable pain or nausea, as this may necessitate urgent surgical intervention. - Will continue to follow Admission and Anticipated Discharge Date Admission Date: February 15, 2021 Subjective Pt examined at bedside in the ED. Awake, resting in bed on arrival. No acute distress. Febrile this morning - 38.0C at 0846. He denies abdominal, flank, or suprapubic pain at present. Tolerating PO diet, no nausea or vomiting. Voiding spontaneously in urinal. Denies hematuria or dysuria. Review of Systems Constitutional: as per Subjective / HPI Gastrointestinal: as per Subjective / HPI Genitourinary: + as per Subjective / HPI Physical Exam Constitutional: well developed and well nourished; no acute distress Respiratory: normal respiratory effort and able to speak in complete sentences; no labored breathing and no audible wheezes Gastrointestinal (Abdomen): Inspection/Auscultation: abdomen normal to inspection; abdomen not distended Percussion/Palpation: abdomen soft; abdomen nontender and no guarding Musculoskeletal: Head/Neck/Chest: normocephalic Skin: No visible rashes or lesions to exposed skin areas Neurologic: moves all extremities and awake Psychiatric: Orientation: alert, oriented x 3 and cooperative Results & Data ([facility]) Vital Signs (Past 12 Hours) Vital Signs Temp Pulse Resp BP Pulse Ox Pulse Ox 02/16/21 11:15 71 18 100/55 L 96 02/16/21 10:30 37.3 C 02/16/21 08:46 38.0 C H 115 H 20 135/86 94 02/16/21 02:00 96 02/16/21 00:00 110 H 16 105/59 L 94 PG Care Time/CCT Total # of Minutes Spent Total Time Spent with Patient: Total time spent is greater than 50% in coordination of care (as documented) at patient's floor/unit and/or counseling patient: Coding Level of Care Code 97001 Subseq Hosp Care Lvl 2 Diagnoses Acute UTI N39.0 MICHELLE (acute kidney injury) N17.9 Fever R50.9 Recurrent bladder transitional cell carcinoma C67.9
[2021-02-16] MEDS ORDERED: cefTRIAXone SODIUM 1,000 MG in DEXTROSE 5% 50 ML IV SCH (14:00)
--- NOTE | 2021-02-16 16:17 | Electrocardiogram Report ---
Test Reason : Blood Pressure : / mmHG Vent. Rate : 092 BPM Atrial Rate : 115 BPM P-R Int : 000 ms QRS Dur : 142 ms QT Int : 376 ms P-R-T Axes : 000 -80 032 degrees QTc Int : 464 ms Atrial fibrillation Right bundle branch block Left anterior fascicular block Bifascicular block Septal infarct (cited on or before 15-FEB-2021) Abnormal ECG When compared with ECG of 16-FEB-2021 09:10, (unconfirmed) Atrial fibrillation has replaced Sinus rhythm Confirmed by Mauricio Garcia ([id number]) on 02/16/2021 4:17:16 PM Referred By: REFERRED SELF Confirmed By:Mauricio Garcia
--- NOTE | 2021-02-16 18:07 | Hospitalist Progress Note ---
Date of Service February 16, 2021 Assessment & Plan (1) Acute UTI: Plan: 89-year-old white male with a history of bladder cancer and concern for lesion in the left kidney recently seen at [facility] considering left ureteronephrectomy. S/p BCG therapy- first sessionthis week. Subsequently developed fever of 102 that persisted for days with foul-smelling urine. Denied dysuria, hematuria, frequency, suprapubic pain * did have early sepsis syndrome with marginal hypotension of 98/53 and sinus tachycardia of 115. Vital signs have responded favorably to IV fluids * White blood cell count normal. Lactic acid normal. T-max here in the hospital was 100.2 * CT scan of the abdomen and pelvis shows double-J stent on the left with bladder wall thickening but no obstructive uropathy * Urine culture and blood cultures both showing preliminary growth of gram- negative bacilli * Initially started on Rocephin empirically but will broaden coverage given his immunocompromised state. Changed to Merrem for added antipseudomonal and ESBL coverage. De-escalate antibiotics based on final culture data urology consulted * Who may proceed with stent exchange after patient has been on IV antibiotic therapy for 48 hours and unless he becomes unstable needing it more urgently (2) Bacteremia: Plan: * see above (3) Recurrent bladder transitional cell carcinoma: Plan: Patient is started BCG treatment as noted Eventual plans for nephrectomy, has previously refused cystectomy --will defer to them urology as an outpatient (4) MICHELLE (acute kidney injury): Plan: * Suspect this may be multifactorial including prerenal azotemia along with possible bladder outlet obstruction and from acute infection * Continue gentle hydration, follow laboratory work * Bladder scan showing post void residual of 130 cc. We will hold off on Hess catheter insertion for now. Continue IV hydration with trending labs * Hold losartan and hydrochlorothiazide (5) Hypertension: Plan: Patient is hypotensive at this time and we will hold antihypertensives. Antihypertensive medications will remain on hold (6) Hyperlipidemia: Plan: No medications documented for this despite being part of medical history. Lipid panel obtained and adequately controlled for his age Admission and Anticipated Discharge Date Admission Date: February 15, 2021 Supervising Physician Co-Signing Physician Notes chart reviewed, case d/w J Ashley PAC. agree w above Subjective Patient seen on daily rounds today. Overall feeling about the same. Presented with a fever and overall feeling of illness. Temp was 102 upon arrival. T-max overnight was 100.2. He was marginally hypotensive at 98/53 and this morning was 105/59. Still remains slightly tachycardic in the 1 teens. Nurse was concerned that he was having atrial fibrillation on the monitor. An EKG was performed that showed sinus with frequent PVCs. Patient's blood cultures and urine culture are both showing preliminary growth of gram-negative bacilli CT scan of the abdomen and pelvis does show an indwelling double-J stent on the left with bladder wall thickening Review of Systems Review of Systems: All systems reviewed and are unremarkable except as noted in HPI and below Denies fevers, chills, headache, nasal congestion, sore throat, cough, chest pain, shortness of breath, palpitations, orthopnea, PND, abdominal pain, nausea, vomiting, diarrhea, constipation, dysuria, hematuria, frequency, back pain, joint pain or swelling, easy bruising or bleeding, skin lesions or rashes. Physical Exam Physical Exam: General: Resting comfortably in his hospital bed appears mildly ill but not toxic [NAD.] HEENT: [Head is AT/NC][buccal mucosa is moist and pink] Neck:[No JVD.][Negative hepatojugular reflex] Cardiac: Tachycardic at 115 but following fluid bolus, heart rate improved into the 80s Lungs:[CTA][without W/R/R] Abdomen:[Normoactive X4.][Soft and nontender in all quadrants.] No suprapubic tenderness. No CVA tenderness except he felt Extremities: [No peripheral clubbing cyanosis or edema] Neuro:[A&O X4][cranial nerves II through XII are grossly intact][no focal neuro deficits] Skin:[No obvious skin lesions or rashes] Psych:[appropriate affect][pleasant and cooperative] Results & Data Results & Data ([facility]) Vital Signs (Past 12 Hours) Vital Signs Temp Pulse Resp BP Pulse Ox 02/16/21 15:26 36.9 C 84 18 137/65 98 02/16/21 11:15 71 18 100/55 L 96 02/16/21 10:30 37.3 C 02/16/21 08:46 38.0 C H 115 H 20 135/86 94 Laboratory Results 02/16/21 04:42 02/16/21 04:42 Microbiology 02/15/21 15:58 Aerobic Blood Culture - Preliminary Blood Gram negative bacilli 02/15/21 16:01 Aerobic Blood Culture - Preliminary Blood Gram negative bacilli 02/15/21 15:34 Urine Culture - Preliminary Urine,Clean Catch Gram negative bacilli PG Care Time/CCT Total # of Minutes Spent Total Time Spent with Patient: Total time spent is greater than 50% in coordination of care (as documented) at patient's floor/unit and/or counseling patient: Coding Level of Care Code 80374 Subseq Hosp Care Lvl 3 Diagnoses Recurrent bladder transitional cell carcinoma C67.9 MICHELLE (acute kidney injury) N17.9 Hypertension I10 Hyperlipidemia E78.5 Acute UTI N39.0 Bacteremia R78.81
[2021-02-16] MEDS: MEROPENEM 500 MG in SYRINGE 0 ML IV SCH (19:27)
[2021-02-16] MEDS: DOCUSATE SODIUM 100 MG CAP PO SCH (19:28)
[2021-02-16] MEDS: FINASTERIDE 5 MG TAB PO SCH (19:28)
[2021-02-16] MEDS: MELATONIN 3 MG TAB PO SCH (19:30)
[2021-02-17] MEDS: MEROPENEM 500 MG in SYRINGE 0 ML IV SCH (03:53)
[2021-02-17] MEDS: HEPARIN SOD 5,000 UNIT/0.5 ML VIAL SQ SCH ×3 (06:25→20:51)
[2021-02-17] MEDS: SODIUM CHLORIDE 0.9% 1000ML 1,000 ML IV SCH ×2 (07:01→19:12)
[2021-02-17 07:41] LABS: Eosinophils # (auto) 0.03 K/uL (0-0.5); Eosinophils % (auto) 0.6 %; Hematocrit (blood only) 31.4 % (42-52); Hemoglobin 10.3 g/dL (14.0-18.0); Immature Granulocytes # (auto) 0.02 K/uL (0.00-0.02); Immature Granulocytes % (auto) 0.4 %; Lymphocytes # (auto) 0.41 K/uL (1.2-3.4); Lymphocytes % (auto) 8.7 %; Mean Corpuscular Hemoglobin 32.3 pg (25-34); Mean Corpuscular Hgb Conc 32.8 g/dL (32-36); Mean Corpuscular Volume 98.4 fL (80-100); Mean Platelet Volume 10.1 fL (7.4-10.4); Monocytes # (auto) 0.73 K/uL (0.11-0.59); Monocytes % (auto) 15.6 %; Neutrophils % (auto) 74.7 %; Platelet Count 138 K/uL (130-400); RDW Coefficient of Variation 12.8 % (11.5-14.5); RDW Standard Deviation 46.2 fL (36.4-46.3); Red Blood Count 3.19 M/uL (4.7-6.1); White Blood Count 4.69 K/uL (4.8-10.8)
[2021-02-17 08:03] LABS: Albumin Level 2.1 gm/dl (3.4-5.0); BUN Creatinine Ratio 24.4 (10-20); Creatinine Clr Calc Pharmacy 29.7 ml/min; Est GFR (African American) 42.6 ml/min; Est GFR (Non-African American) 36.8 ml/min; Magnesium 1.9 mg/dl (1.8-2.4); Potassium 3.9 mmol/L (3.5-5.1)
[2021-02-17 08:14] LABS: Albumin Globulin Ratio 0.6 (0.9-2); Globulin 3.5 gm/dl (2.5-4.0); Total Protein 5.6 gm/dl (6.4-8.2)
[2021-02-17] MEDS: CHOLECALCIFEROL 1,000 UNITS 25 MCG TAB PO SCH (08:35)
[2021-02-17] MEDS: METHENAMINE HIPPURATE 1 GM TAB PO SCH (08:35)
[2021-02-17] MEDS: CEROVITE ADV FORMULA TAB PO SCH (08:36)
[2021-02-17 08:52] LABS: Bilirubin,Total 0.3 mg/dl (0.2-1)
[2021-02-17] MEDS: CIPROFLOXACIN / D5W 400 MG/200 ML BAG IV SCH ×2 (10:14→21:11)
--- NOTE | 2021-02-17 15:32 | Hospitalist Progress Note ---
Date of Service February 17, 2021 Assessment & Plan (1) Acute UTI: Plan: 89-year-old white male with a history of bladder cancer and concern for lesion in the left kidney recently seen at [facility] considering left ureteronephrectomy. S/p BCG therapy- first sessionthis week. Subsequently developed fever of 102 that persisted for days with foul-smelling urine. Denied dysuria, hematuria, frequency, suprapubic pain * did have early sepsis syndrome with marginal hypotension of 98/53 and sinus tachycardia of 115. Vital signs have responded favorably to IV fluids * White blood cell count normal. Lactic acid normal. T-max here in the hospital was 100.2 * CT scan of the abdomen and pelvis shows double-J stent on the left with bladder wall thickening but no obstructive uropathy * Patient has since defervesced. He has been hemodynamically stable * Empirically placed on Merrem given his immunocompromised state and risk for Pseudomonas/ESBL. Urine culture and blood cultures both growing pansensitive E. coli. Transition to Cipro with plan for 3-4 weeks of treatment given concern for associated prostatitis (Cipro not ideal in his age group but will start here and pending he tolerates, will D/C with cipro as is the PATIENCE for prostatitis) (2) Bacteremia: Plan: * see above (3) Recurrent bladder transitional cell carcinoma: Plan: Patient is started BCG treatment as noted Eventual plans for nephrectomy, has previously refused cystectomy --will defer to them urology as an outpatient (4) MICHELLE (acute kidney injury): Plan: * 2.1 on arrival * Suspect this may be multifactorial including prerenal azotemia along with possible bladder outlet obstruction and from acute infection * Continue gentle hydration, * Creatinine improving and is 1.6 today (baseline ~1.4) * Bladder scan showing post void residual of 130 cc. We will hold off on Hess catheter insertion for now. Continue IV hydration with trending labs * contineu to Hold losartan and hydrochlorothiazide for now (5) Hypertension: Plan: * Oral antihypertensive medications held given early sepsis syndrome and marginal hypotension * Blood pressure stabilized but will continue to hold losartan/HCTZ for now given acute on chronic renal impairment (see above) A (6) Hyperlipidemia: Plan: No medications documented for this despite being part of medical history. Lipid panel obtained and adequately controlled for his age Plan: PT/OT consulted. They have since evaluated the patient and have signed off as patient completely independent. Continue IV antibiotic therapy for now with plan for likely discharge tomorrow Patient's updated Admission and Anticipated Discharge Date Admission Date: February 15, 2021 Supervising Physician Co-Signing Physician Notes chart reviewed, case d/w J Ashley PAC. agree w above Subjective Patient seen on daily rounds today. Overall, feeling much better. He has not had any fevers spike since presenting to the ED. Overall his heart rate and blood pressure have normalized His renal function is improving. Not having any urinary complaints including dysuria, hematuria, urinary frequency. A bladder scan was done post void and his post void residual is 130 Review of Systems Review of Systems: All systems reviewed and are unremarkable except as noted in HPI and below Denies fevers, chills, headache, nasal congestion, sore throat, cough, chest pain, shortness of breath, palpitations, orthopnea, PND, abdominal pain, nausea, vomiting, diarrhea, constipation, dysuria, hematuria, frequency, back pain, joint pain or swelling, easy bruising or bleeding, skin lesions or rashes. Physical Exam Physical Exam: General: Resting comfortably in his hospital bed. He does not appear ill or toxic. NAD. HEENT: Head is AT/NC buccal mucosa is moist and pink Neck: No JVD. Negative hepatojugular reflex Cardiac: RRR with 1/6 to 2/6 LISA Lungs: CTA without W/R/R Abdomen: Normoactive X4. Soft and nontender in all quadrants. No CVA tenderness Extremities: No peripheral clubbing cyanosis or edema Neuro: A&O X4 cranial nerves II through XII are grossly intact no focal neuro deficits Skin: No obvious skin lesions or rashes Psych: Appropriate affect pleasant and cooperative Results & Data Results & Data ([facility]) Vital Signs (Past 12 Hours) Vital Signs Temp Pulse Pulse Resp BP BP Pulse Ox 02/17/21 14:59 36.8 C 66 20 163/82 H 97 02/17/21 11:22 36.7 C 67 19 139/75 96 02/17/21 08:00 69 02/17/21 07:40 37.1 C 72 20 151/75 H 95 Laboratory Results 02/17/21 06:58 02/17/21 06:58 Close SUSCEPTIBILITIES M.I.C. Org 1 = Escherichia coli Collected: 02/15/21 16:01 Source: Blood ANTIBIOTIC ORG 1 Amoxacillin/Clavulanate S Ampicillin S Ampicillin/Sulbactam S Cefazolin S Cefepime S Ceftriaxone S Ciprofloxacin S Ertapenem S Gentamicin S Levofloxacin S Meropenem S Piperacillin/Tazobactam S Tobramycin S Trimethoprim/Sulfamethoxazole S PG Care Time/CCT Total # of Minutes Spent Total Time Spent with Patient: Total time spent is greater than 50% in coordination of care (as documented) at patient's floor/unit and/or counseling patient: Coding Level of Care Code 98967 Subseq Hosp Care Lvl 2 Diagnoses Acute UTI N39.0 Bacteremia R78.81 Recurrent bladder transitional cell carcinoma C67.9 MICHELLE (acute kidney injury) N17.9 Hypertension I10 Hyperlipidemia E78.5
[2021-02-17] MEDS: DOCUSATE SODIUM 100 MG CAP PO SCH (20:50)
[2021-02-17] MEDS: FINASTERIDE 5 MG TAB PO SCH (20:51)
[2021-02-17] MEDS: MELATONIN 3 MG TAB PO SCH (20:56)
[2021-02-18] MEDS ORDERED: CIPROFLOXACIN 500 MG TAB PO SCH
[2021-02-18 07:08] LABS: Basophils # (auto) 0.01 K/uL (0-0.2); Basophils % (auto) 0.2 %; Eosinophils # (auto) 0.07 K/uL (0-0.5); Eosinophils % (auto) 1.6 %; Hematocrit (blood only) 30.8 % (42-52); Hemoglobin 10.2 g/dL (14.0-18.0); Immature Granulocytes # (auto) 0.02 K/uL (0.00-0.02); Immature Granulocytes % (auto) 0.4 %; Lymphocytes # (auto) 0.82 K/uL (1.2-3.4); Lymphocytes % (auto) 18.3 %; Mean Corpuscular Hemoglobin 32.4 pg (25-34); Mean Corpuscular Hgb Conc 33.1 g/dL (32-36); Mean Corpuscular Volume 97.8 fL (80-100); Mean Platelet Volume 9.8 fL (7.4-10.4); Monocytes # (auto) 0.83 K/uL (0.11-0.59); Monocytes % (auto) 18.5 %; Neutrophils # (auto) 2.73 K/uL (1.4-6.5); Platelet Count 143 K/uL (130-400); RDW Coefficient of Variation 12.9 % (11.5-14.5); Red Blood Count 3.15 M/uL (4.7-6.1); White Blood Count 4.48 K/uL (4.8-10.8)
[2021-02-18 07:22] LABS: BUN Creatinine Ratio 23.3 (10-20); Calcium 8.1 mg/dl (8.5-10.1); Creatinine Clr Calc Pharmacy 31.4 ml/min; Est GFR (African American) 45.6 ml/min; Est GFR (Non-African American) 39.4 ml/min; Potassium 4.2 mmol/L (3.5-5.1)
[2021-02-18] MEDS: HEPARIN SOD 5,000 UNIT/0.5 ML VIAL SQ SCH (08:15)
[2021-02-18] MEDS: CHOLECALCIFEROL 1,000 UNITS 25 MCG TAB PO SCH (08:15)
[2021-02-18] MEDS: CEROVITE ADV FORMULA TAB PO SCH (08:15)
[2021-02-18] MEDS: CIPROFLOXACIN / D5W 400 MG/200 ML BAG IV SCH (08:16)
[2021-02-18] MEDS: SODIUM CHLORIDE 0.9% 1000ML 1,000 ML IV SCH (08:16)
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
== END 2021-02-18 14:15 | disposition home or self-care (01) | DRG 690 ==
LOC: ED 14:09 → SUATTDRO 18:28 → EDINP 18:28 → 2N 02-17 03:08

== ENCOUNTER 2021-11-18 20:16 | Inpatient (IN) ==
[2021-11-18] MEDS ORDERED: MoRPHine SULFATE 4 MG/ML 1 ML CARP\\VIAL IV STA (20:23)
[2021-11-18] MEDS ORDERED: ONDANSETRON INJ 2 MG/ML 2 ML VIAL IV STA (20:23)
[2021-11-18] MEDS ORDERED: MoRPHine SULFATE 4 MG/ML 1 ML CARP\\VIAL IV PRN (20:23)
[2021-11-18] MEDS ORDERED: SODIUM CHLORIDE 0.9% 500 ML IV STA (20:23)
--- NOTE | 2021-11-18 20:36 | Emergency Department Note ---
Impression & Plan Closed intertrochanteric fracture of left hip, Fall ED Provider Note NAME: NONI GOLDSTEIN AGE: 89 SEX: M : 1930 ARRIVES VIA: Ambulance INFORMANT: Patient, EMS ED PROVIDER(S): Mauricio Carter DO CHIEF COMPLAINT: Hip pain HPI: The patient is an 89-year-old male who presented to the emergency department by ambulance for an evaluation of hip pain. The patient had a fall onto his left side. He suffered a injury to his left hip. He was not able to stand. 911 was called and the patient arrived via ambulance. He denies having any head injury. He denies having any nausea or vomiting. He has had no recent illnesses including fever or diarrhea. The patient states that he has been compliant with his outpatient medications. He does have a history of aortic stenosis as well as kidney disease. He has not noticed any increase or decrease in urination. He states pain is moderate to severe with any movement of the le ft hip. The patient has never injured this hip previously. ROS: See above HPI for pertinent positives & negatives. A total of 10 systems reviewed and were otherwise negative. PAST MEDICAL HISTORY: See Below PAST SURGICAL HISTORY: See Below FAMILY HISTORY: See Below SOCIAL HISTORY: See Below HOME MEDICATIONS: See Below ALLERGIES: See Below VITALS: See Below PHYSICAL EXAMINATION: GENERAL: The patient is awake and alert. The patient is very anxious appearing. He appears to be in significant pain. EYES: The conjunctivae are clear. The pupils are round and reactive. EARS, NOSE, MOUTH AND THROAT: The nose is without any evidence of any deformity. NECK: The neck is nontender and supple. RESPIRATORY: Normal respiratory effort is noted there is no evidence of wheezing rhonchi or rales CARDIOVASCULAR: Regular rate and rhythm was noted auscultation. Systolic murmur was suggested. GASTROINTESTINAL: The abdomen is soft. Abdomen is nontender. BACK: No midline tenderness or or step-off noted range of motion in flexion extension as well as rotation no signs of muscle spasm noted MUSCULOSKELETAL/EXTREMITIES: The left lower extremity shortened. There is mild internal rotation noted. The patient has significant pain with range of motion testing left hip. There is no palpable tenderness of the left knee or the left leg. SKIN: There is no obvious evidence of any rash. Skin is warm and dry pedal edema was noted bilaterally. Pulses were symmetric in both feet. NEUROLOGIC: Patient is awake alert and oriented x3. MEDICAL DECISION MAKING: The patient is an 89-year-old male who presented to the emergency department for an evaluation after fall. The patient had a fall from ground-level. He landed on his left side and injured his left hip. Radiographic studies were obtained and appear to be consistent with a intertrochanteric fracture. CT was obtained of the head as well as the hip. I discussed the patient's laboratory and radiographic studies with him. He was treated with IV pain medication in the em ergency department. Some of the medical clearance was also ordered. The patient was feeling improved on reevaluation. The [facility] hospitalist was notified about the patient. They will evaluate the patient in the emergency department. Triage Nursing notes reviewed. Prior medical records reviewed Vital Signs: reviewed and remarkable for elevated blood pressure. Differential diagnosis: Fracture, subluxation, dislocation, contusion, ligamentous injury, neurovascular, compartment syndrome, rhabdomyolysis, as well as other pathologies. ER treatment provided: See below Diagnostics interpreted by me: ECG: EKG was obtained in the emergency department. My interpretation is sinus rhythm at 81 bpm. First-degree AV block was noted. Right bundle branch block pattern was noted. LVH was suggested by voltage criteria. This was compared to a tracing from February 16, 2021. Sinus rhythm has replaced atrial fibrillation compared to the earlier tracing. Cardiac Monitoring: An order was placed for continuous cardiac monitoring. The monitor shows a rate of 85 bpm with sinus rhythm. Laboratory studies: As stated above and show below. Imaging studies: See below Consultation(s): Dr. Cabrera was notified about the patient. He will evaluate the patient in the emergency department. 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 Secondary hyperparathyroidism Varicose veins of both legs with edema Surgical History History of bladder surgery TURBT (4/2/19): LMA#5 iGel at [facility] History of carpal tunnel release R/L History of colonoscopy History of hemorrhoidectomy History of lumbar fusion Lumbar History of partial thyroidectomy Goiter excision History of tooth extraction S/P ureteral stent placement Status post insertion of spinal cord stimulator 19+ years ago > no longer functioning but patient states he was advised not to remote unless it gives him issues Family History Mother Hypertension Denies family history of Ovarian cancer Prostate cancer Myocardial infarction Breast cancer Lung cancer Colorectal cancer Social History Smoking Status: Former smoker Tobacco Type: Cigarettes Age Quit Using Tobacco: 54; Second Hand Exposure: No; Hx Alcohol Use: No Hx Substance Use: No Preferred Language: Wallisian Communication Ability: Effective Visual Impairment: Limited Hearing Ability: Normal Political Geographer Required: No Beliefs That Will Affect Care: None marital status: Current Living Situation: Spouse current occupational status: retired How many Children do You have: 5 Feels Safe at Home: Yes Childhood Exposure to Second-Hand Smoke: No Diet Comment: regular caffeine: No Dental Care, Regularly: Yes Physical Activity Frequency: Daily Seatbelt Use: always Sunscreen Use: No Assistive Devices: Walker Allergies Allergies Allergy/AdvReac Type Severity Reaction Status Date / Time caffeine Allergy Intermediate Throat Verified 11/18/21 22:12 swelling, hives, redness nitrofurantoin Allergy Unknown Unknown Verified 11/18/21 22:12 Home Meds Home Medications Medication Instructions Recorded Confirmed docusate sodium 100 mg capsule 100 mg PO QPM 04/22/18 11/18/21 (Colace) melatonin 3 mg tablet 3 mg PO HS 04/22/18 11/18/21 vit C 250 mg-vit E 90 mg-zinc 40 1 cap PO BID 06/12/20 11/18/21 mg-copper 1 [id number]-riklao capsule (PreserVision AREDS-2) cholecalciferol (vitamin D3) 25 25 mcg PO DAILY 02/15/21 11/18/21 mcg (1,000 unit) tablet (Vitamin D3) tramadol 50 mg tablet 50 mg PO TID 11/18/21 11/18/21 Previous Rx's Medication Instructions Recorded finasteride 5 mg tablet 5 mg PO QPM #90 tabs 06/11/21 losartan 50 mg tablet 50 mg PO DAILY #90 tabs 09/04/21 methenamine hippurate 1 gram tablet 1 g PO DAILY #90 tabs 09/17/21 Results & Data (ED) Vital Signs Vital Signs - 24 hr 11/18/21 20:22 11/18/21 20:28 11/18/21 22:22 Temperature 36.8 C Temperature Source Oral Pulse Rate 85 Pulse Rate [Apical] 89 Respiratory Rate 18 18 Blood Pressure 180/88 H Blood Pressure [Right Arm] 156/89 H Blood Pressure Mean 118 Blood Pressure Mean [Right Arm] 111 Pulse Oximetry 95 93 96 Oxygen Delivery Method Room Air Room Air Room Air Sepsis Recent Fever Within 48 Hours No Sepsis New/Unexplained Change in Mental Status No Sepsis Action Taken by Nursing No Action Required Home Medications Current Medication List: was personally reviewed by me Laboratory Data Attestation: I reviewed the patient's lab results. Result diagrams: 11/18/21 20:28 11/18/21 20:28 Lab Results 11/18/21 11/18/21 11/18/21 Range/Units 20:28 20:28 20:28 WBC 10.28 (4.8-10.8) K/ul RBC 3.89 L (4.63-6.08) M/uL Hgb 12.8 L (14.0-18.0) g/dl Hct 37.9 L (40.1-51.0) % MCV 97.4 (80.0-100.0) fL MCH 32.9 (25.0-34.0) pg MCHC 33.8 (32.0-36.0) g/dL RDW Std Deviation 43.4 (36.4-46.3) fL RDW Coeff of Jazmyne 12.1 (11.5-14.5) % Plt Count 182 (130-400) K/uL MPV 9.9 (9.4-12.4) fL Immature Gran % (Auto) 0.8 % Neut % (Auto) 85.5 % Lymph % (Auto) 6.7 % [place] % (Auto) 6.4 % Eos % (Auto) 0.4 % Baso % (Auto) 0.2 % Neut # (Auto) 8.79 H (1.4-6.5) K/uL Lymph # (Auto) 0.69 L (1.2-3.4) K/uL [place] # (Auto) 0.66 (0.24-0.82) K/uL Eos # (Auto) 0.04 (0-0.50) K/uL Baso # (Auto) 0.02 (0-0.2) K/uL Immature Gran # (Auto) 0.08 H (0.00-0.02) K/uL PT 11.3 (9.0-12.0) Seconds INR 1.1 (0.9-1.1) APTT 25.7 (21.0-31.0) Seconds PTT Ratio 0.9 Sodium 135 L (136-145) mmol/L Potassium 4.5 (3.5-5.1) mmol/L Chloride 103 (98-107) mmol/L Carbon Dioxide 25 (21-32) mmol/L Anion Gap 7 (3-11) BUN 24 H (6-23) mg/dl Creatinine 1.34 (0.6-1.4) mg/dl Est Cr Clr Drug Dosing 36.2 ml/min Est GFR ( Amer) 54.1 ml/min Est GFR (Non-Af Amer) 46.6 ml/min BUN/Creatinine Ratio 17.9 (10-20) Glucose 109 H (70-99(Fasting)) mg/dl Calcium 8.8 (8.5-10.1) mg/dl Total Bilirubin 0.5 (0.2-1.0) mg/dl AST 19 (13-39) U/L ALT 17 (7-52) U/L Alkaline Phosphatase 99 (34-104) U/L Troponin I High Sens 36.8 H (0-20) pg/ml Total Protein 6.7 (6.0-8.3) gm/dl Albumin 3.6 (3.4-5.0) gm/dl Globulin 3.1 (2.5-4.0) gm/dl Albumin/Globulin Ratio 1.2 (0.9-2) Lipase 16 (11-82) U/L SARS-CoV-2, RNA, NAAT (NEGATIVE) 11/18/21 Range/Units 20:29 WBC (4.8-10.8) K/ul RBC (4.63-6.08) M/uL Hgb (14.0-18.0) g/dl Hct (40.1-51.0) % MCV (80.0-100.0) fL MCH (25.0-34.0) pg MCHC (32.0-36.0) g/dL RDW Std Deviation (36.4-46.3) fL RDW Coeff of Jazmyne (11.5-14.5) % Plt Count (130-400) K/uL MPV (9.4-12.4) fL Immature Gran % (Auto) % Neut % (Auto) % Lymph % (Auto) % [place] % (Auto) % Eos % (Auto) % Baso % (Auto) % Neut # (Auto) (1.4-6.5) K/uL Lymph # (Auto) (1.2-3.4) K/uL [place] # (Auto) (0.24-0.82) K/uL Eos # (Auto) (0-0.50) K/uL Baso # (Auto) (0-0.2) K/uL Immature Gran # (Auto) (0.00-0.02) K/uL PT (9.0-12.0) Seconds INR (0.9-1.1) APTT (21.0-31.0) Seconds PTT Ratio Sodium (136-145) mmol/L Potassium (3.5-5.1) mmol/L Chloride (98-107) mmol/L Carbon Dioxide (21-32) mmol/L Anion Gap (3-11) BUN (6-23) mg/dl Creatinine (0.6-1.4) mg/dl Est Cr Clr Drug Dosing ml/min Est GFR ( Amer) ml/min Est GFR (Non-Af Amer) ml/min BUN/Creatinine Ratio (10-20) Glucose (70-99(Fasting)) mg/dl Calcium (8.5-10.1) mg/dl Total Bilirubin (0.2-1.0) mg/dl AST (13-39) U/L ALT (7-52) U/L Alkaline Phosphatase (34-104) U/L Troponin I High Sens (0-20) pg/ml Total Protein (6.0-8.3) gm/dl Albumin (3.4-5.0) gm/dl Globulin (2.5-4.0) gm/dl Albumin/Globulin Ratio (0.9-2) Lipase (11-82) U/L SARS-CoV-2, RNA, NAAT NEGATIVE (NEGATIVE) Administered Medications Morphine Sulfate (Morphine Sulfate 4 Mg/Ml 1 Ml Carp\\Vial) 3 mg IV Q3H PRN PRN Reason: Pain Stop: 12/02/21 22:14 Last Admin: 11/18/21 22:33 Dose: 3 mg Documented By: RO Discontinued Medications Sodium Chloride (Nss) 500 mls @ 999 mls/hr IV .Q31M STA Stop: 11/18/21 20:53 Last Infusion: 11/18/21 21:45 Dose: 0 mls/hr Documented By: Admin: 11/18/21 20:33 Dose: 999 mls/hr Documented By: Morphine Sulfate (Morphine Sulfate 4 Mg/Ml 1 Ml Carp\\Vial) 4 mg IV NOW STA Stop: 11/18/21 20:24 Last Admin: 11/18/21 20:32 Dose: 4 mg Documented By: Ondansetron HCl (Ondansetron Inj 2 Mg/Ml 2 Ml Vial) 4 mg IV NOW STA Stop: 11/18/21 20:24 Last Admin: 11/18/21 20:33 Dose: 4 mg Documented By: Imaging Data Attestation: I personally reviewed and interpreted this imaging study as follows: My Impression: X-ray of the left hip and pelvis was obtained in the emergency department. My interpretation is intertrochanteric hip fracture on the left, there is no acute pelvis fracture, left ureteral stent noted 1 view chest x-ray was obtained in the emergency department. There is cardiomegaly, no definite filtrate, no free air, no acute disease. Radiologist's Impression: Patient: NONI GOLDSTEIN (Male) : 34 Status: ER Date: 11/18/21 21:50 Room #: History: fall Slices: 66 Priors: Tech: Todd Romano @ [phone] Exams: CT HEAD Contrast: Accession Numbers: [id number] Referring Physician: REFERRED SELF Preliminary Findings Only See Final Report For Complete Findings CT HEAD: Moderate brain volume loss. Mild chronic ischemic changes. No mass, hemorrhage or acute infarct. Sinuses, mastoids and bones are intact. Impression: No acute findings. Radiologist: Jagjit King M.D. Study ready at 21:50 and initial results transmitted at 22:07 Patient: NONI GOLDSTEIN (Male) : 34 Status: ER Date: 11/18/21 21:50 Room #: History: fall Slices: 590 Priors: Tech: Juan Antonio Todd @ [id number] Exams: CT LEFT HIP Contrast: Accession Numbers: [id number] Referring Physician: REFERRED SELF Preliminary Findings Only See Final Report For Complete Findings CT LEFT HIP: Left femoral mildly impacted acute intertrochanteric fracture. Moderate narrowing of the hip joint space. No subluxation or dislocation. Impression: Left femoral fracture. Radiologist: Jagjit King M.D. Study ready at 21:54 and initial results transmitted at 22:08 Discharge Plan Visit Data Chief Complaint: Hip Pain ED Provider: Mauricio Carter Discharge Problem: Closed intertrochanteric fracture of left hip, Fall Patient Disposition: Being Evaluated by Hospitalist Forms Stand Alone Forms: My Penxy Prescriptions Prescriptions: No Action finasteride 5 mg tablet 5 mg PO QPM Qty: 90 1RF losartan 50 mg tablet 50 mg PO DAILY Qty: 90 1RF methenamine hippurate 1 gram tablet 1 g PO DAILY Qty: 90 1RF melatonin 3 mg Tablet 3 mg PO HS docusate sodium [Colace] 100 mg Capsule 100 mg PO QPM PreserVision AREDS-2 250-90-40-1 mg Capsule 1 cap PO BID cholecalciferol (vitamin D3) [Vitamin D3] 25 mcg (1,000 unit) Tablet 25 mcg PO DAILY tramadol 50 mg tablet 50 mg PO TID Rx Instructions: PER PT "TAKE TID WITH ONE EXTRA IF NEEDED". Referrals Referrals: Danuta Kerr DO [Primary Care Provider] - : Closed intertrochanteric fracture of left hip Qualifiers: Encounter type: initial encounter Fracture alignment: displaced Qualified Code( s): S72.142A - Displaced intertrochanteric fracture of left femur, initial encounter for closed fracture Fall Qualifiers: Encounter type: initial encounter Qualified Code(s): W19.XXXA - Unspecified f all, initial encounter
[2021-11-18 20:44] LABS: Basophils # (auto) 0.02 K/uL (0-0.2); Basophils % (auto) 0.2 %; Eosinophils # (auto) 0.04 K/uL (0-0.50); Eosinophils % (auto) 0.4 %; Hematocrit (blood only) 37.9 % (40.1-51.0); Hemoglobin 12.8 g/dl (14.0-18.0); Immature Granulocytes # (auto) 0.08 K/uL (0.00-0.02); Immature Granulocytes % (auto) 0.8 %; Lymphocytes # (auto) 0.69 K/uL (1.2-3.4); Lymphocytes % (auto) 6.7 %; Mean Corpuscular Hemoglobin 32.9 pg (25.0-34.0); Mean Corpuscular Hgb Conc 33.8 g/dL (32.0-36.0); Mean Corpuscular Volume 97.4 fL (80.0-100.0); Mean Platelet Volume 9.9 fL (9.4-12.4); Monocytes # (auto) 0.66 K/uL (0.24-0.82); Monocytes % (auto) 6.4 %; Neutrophils # (auto) 8.79 K/uL (1.4-6.5); Neutrophils % (auto) 85.5 %; Platelet Count 182 K/uL (130-400); RDW Coefficient of Variation 12.1 % (11.5-14.5); RDW Standard Deviation 43.4 fL (36.4-46.3); Red Blood Count 3.89 M/uL (4.63-6.08); White Blood Count 10.28 K/ul (4.8-10.8)
[2021-11-18 20:55] LABS: INR 1.1 (0.9-1.1); Partial Thromboplastin Ratio 0.9; Partial Thromboplastin Time 25.7 Seconds (21.0-31.0); Prothrombin Time 11.3 Seconds (9.0-12.0)
[2021-11-18 21:07] LABS: Albumin Globulin Ratio 1.2 (0.9-2); Albumin Level 3.6 gm/dl (3.4-5.0); BUN Creatinine Ratio 17.9 (10-20); Bilirubin,Total 0.5 mg/dl (0.2-1.0); Calcium 8.8 mg/dl (8.5-10.1); Creatinine Clr Calc Pharmacy 36.2 ml/min; Est GFR (African American) 54.1 ml/min; Est GFR (Non-African American) 46.6 ml/min; Globulin 3.1 gm/dl (2.5-4.0); Potassium 4.5 mmol/L (3.5-5.1); Total Protein 6.7 gm/dl (6.0-8.3)
[2021-11-18 21:10] LABS: Troponin I High Sensitivity 36.8 pg/ml (0-20)
--- NOTE | 2021-11-18 22:20 | History & Physical Report ---
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 The pt suffered a mechanical fall on his L side and could not bear weight following. He was transported to the ER where imaging confirmed a L intertrochanteric fracture. He has no additional complaints at the time of admission. He does state that he was due for immune therapy the following day. Labs are notable for mild anemia and a trop of 38. 1) Hip fracture - ortho consult pending - NPO, IVF, pain control. The pt does not have a significant cardiac history. There is a pronounced murmur which is chronic but no echo on record. We will obtain prior to surgery owing to his elevated trop. He has had multiple procedures with anesthesia this year alone. 2) HTN - we will hold his JEROD perioperatively 3) CA - scheduled for immune therapy which may be postponed to hasten healing but this is not clear at present and he can FU with his oncologist. 4) BPH - cont Finasteride 5) Elevated trop - unlikely primary - trend, AM echo Full code - one dose, SCDs - caution with anticoagulation due to chronic hematuria. 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 The pt suffered a mechanical fall on his L side and could not bear weight following. He was transported to the ER where imaging confirmed a L intertrochanteric fracture. He has no additional complaints at the time of admission. He does state that he was due for immune therapy the following day. Labs are notable for mild anemia and a trop of 38. PMH: 1) HTN 2) Transitional cell CA of bladder and kidney - multiple resections of bladder tumors, kidney tumors and ureteral stenting 3) Pronounced systolic murmur with no echo on record 4) BPH 5) Bifascicular block on EKG Surgical: 1) Multiple tumor resection - bladder and kidney 2) Lumbar surgery - has a defunct stimulator Social: Does not smoke or drink Family: Noncontributory due to pt age Allergies Allergy/AdvReac Type Severity Reaction Status Date / Time caffeine Allergy Intermediate Throat Verified 11/18/21 22:12 swelling, hives, redness nitrofurantoin Allergy Unknown Unknown Verified 11/18/21 22:12 Home Medications Medication Instructions Recorded Confirmed Type docusate sodium 100 mg capsule 100 mg PO QPM 04/22/18 08/30/21 History (Colace) melatonin 3 mg tablet 5 mg PO HS 04/22/18 08/30/21 History vit C 250 mg-vit E 90 mg-zinc 40 1 cap PO BID 06/12/20 08/30/21 History mg-copper 1 ld-wpffti-ugkhys capsule (PreserVision AREDS-2) cholecalciferol (vitamin D3) 25 25 mcg PO DAILY 02/15/21 08/30/21 History mcg (1,000 unit) tablet (Vitamin D3) finasteride 5 mg tablet 5 mg PO QPM #90 tabs 06/11/21 08/30/21 Rx losartan 50 mg tablet 50 mg PO DAILY #90 tabs 09/04/21 Rx methenamine hippurate 1 gram tablet 1 g PO DAILY #90 tabs 09/17/21 Rx tramadol 50 mg tablet 50 mg PO TID 11/18/21 11/18/21 History 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 Secondary hyperparathyroidism Varicose veins of both legs with edema Surgical History History of bladder surgery TURBT (05/12/18): LMA#5 iGel at [facility] History of carpal tunnel release R/L History of colonoscopy History of hemorrhoidectomy History of lumbar fusion Lumbar History of partial thyroidectomy Goiter excision History of tooth extraction S/P ureteral stent placement Status post insertion of spinal cord stimulator 19+ years ago > no longer functioning but patient states he was advised not to remote unless it gives him issues Family History Mother Hypertension Denies family history of Ovarian cancer Prostate cancer Myocardial infarction Breast cancer Lung cancer Colorectal cancer Social History Smoking Status: Former smoker Tobacco Type: Cigarettes Age Quit Using Tobacco: 54; Second Hand Exposure: No; Hx Alcohol Use: No Hx Substance Use: No Preferred Language: Omani Communication Ability: Effective Visual Impairment: Limited Hearing Ability: Normal White Sugar Syrup Operator Required: No Beliefs That Will Affect Care: None marital status: Current Living Situation: Spouse current occupational status: retired How many Children do You have: 5 Feels Safe at Home: Yes Childhood Exposure to Second-Hand Smoke: No Diet Comment: regular caffeine: No Dental Care, Regularly: Yes Physical Activity Frequency: Daily Seatbelt Use: always Sunscreen Use: No Assistive Devices: Walker Review of Systems Review of Systems: Gen: Denies fevers, night sweats, rigors, fatigue, malaise, weight loss/gain ENT: Denies congestion, throat pain, hearing loss Eyes: Denies acute visual changes CV: Denies CP, palpitations Pulmonary: Denies SOB, cough, wheezing GI: Denies N/V, diarrhea, constipation Neuro: Denies acute or unilateral weakness, acute gait impairment, headache or acute visual changes Musculoskeletal: Pain in L hip Endocrine: Denies polydipsia, polyuria Skin: Denies acute rashes or ulcers Physical Exam Physical Exam: General: AAO x 3, no distress ENT: No erythema or exudates, no thrush Eyes: GEOVANI, EOMI Head and neck: Normocephalic, atraumatic, No JVD, neck is supple. Chest/heart: Nontender, S1,2, pronounced, high pitched, likely systolic murmur Lungs: CTAB, no wheezing or crackles Abdomen: Nontender, nondistended, BS+ Neuro: AAO x 3, speech is clear, no unilateral weakness or loss of sensation, coordination intact Musculoskeletal: LLE is shortened and rotated externally - BL edema Skin: No acute rashes or ulcers Extremities: No clubbing, cyanosis, edema Results & Data Results & Data ([facility]) Vital Signs (Past 12 Hours) Vital Signs Temp Pulse Resp BP Pulse Ox O2 Del Method 11/18/21 20:28 93 Room Air 11/18/21 20:22 98.2 F 85 18 180/88 H 95 Room Air Code Status & VTE Plan VTE Prophylaxis Plan VTE Prophylaxis will be ordered: Yes PG Care Time/CCT Total # of Minutes Spent Total Time Spent with Patient: Total time spent is greater than 50% in coordination of care (as documented) at patient's floor/unit and/or counseling patient: Coding Level of Care Code 00414 Initial Inpt Care Lvl 2 Diagnoses Closed intertrochanteric fracture of left hip S72.142A Encounter type: initial encounter Fracture alignment: displaced Transitional cell carcinoma of left kidney C64.2 Hypertension I10 (1) Closed intertrochanteric fracture of left hip Encounter type: initial encounter Fracture alignment: displaced Qualified Code(s): S72.142A - Displaced intertrochanteric fracture of left femur, initial encounter for closed fracture
[2021-11-18] MEDS: MoRPHine SULFATE 4 MG/ML 1 ML CARP\\VIAL IV PRN (22:33)
[2021-11-19] MEDS ORDERED: bisacodyL 10 MG SUPP PR PRN (00:33)
[2021-11-19] MEDS ORDERED: MAGNESIUM HYDROXIDE SUSP 30 ML UDC PO PRN (00:33)
[2021-11-19] MEDS ORDERED: NALOXONE HCL 0.4 MG/1 ML VIAL/CARP IV PRN (00:33)
[2021-11-19] MEDS ORDERED: ONDANSETRON INJ 2 MG/ML 2 ML VIAL IV PRN (00:33)
[2021-11-19] MEDS: D5W AND LACTATED RINGERS 1,000 ML IV SCH ×2 (00:57→12:55)
[2021-11-19] MEDS ORDERED: TRANEXAMIC ACID / 0.7% NACL 1,000 MG/100 ML BAG IV SCH (06:30)
--- NOTE | 2021-11-19 06:40 | Orthopedic Consultation ---
Date of Service November 19, 2021 Assessment & Plan (1) Closed intertrochanteric fracture of left hip: I discussed with him the diagnosis and treatment options. I recommended intramedullary nail fixation of the left hip. He understands the risk, benefits, and alternatives to procedure and elected to proceed. Questions were answered at bedside. Time was spent describing the procedure and postoperative expectations. He is currently NPO. We will plan to do the procedure later this afternoon. History of Present Illness Reason for Consultation: Left intertrochanteric hip fracture. Requesting Physician: . 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 He tripped and fell yesterday and was having severe left hip pain. He came to the emergency room and radiographs demonstrated a minimally displaced left intertrochanteric hip fracture. He was admitted to the hospitalist service. Orthopedics was consulted to evaluate and treat.. Allergies Allergy/AdvReac Type Severity Reaction Status Date / Time caffeine Allergy Intermediate Throat Verified 11/18/21 22:12 swelling, hives, redness nitrofurantoin Allergy Unknown Unknown Verified 11/18/21 22:12 Home Medications Medication Instructions Recorded Confirmed Type docusate sodium 100 mg capsule 100 mg PO QPM 04/22/18 11/18/21 History (Colace) melatonin 3 mg tablet 3 mg PO HS 04/22/18 11/18/21 History vit C 250 mg-vit E 90 mg-zinc 40 1 cap PO BID 06/12/20 11/18/21 History mg-copper 1 [id number]-njkiaa capsule (PreserVision AREDS-2) cholecalciferol (vitamin D3) 25 25 mcg PO DAILY 02/15/21 11/18/21 History mcg (1,000 unit) tablet (Vitamin D3) finasteride 5 mg tablet 5 mg PO QPM #90 tabs 06/11/21 11/18/21 Rx losartan 50 mg tablet 50 mg PO DAILY #90 tabs 09/04/21 11/18/21 Rx methenamine hippurate 1 gram tablet 1 g PO DAILY #90 tabs 09/17/21 11/18/21 Rx tramadol 50 mg tablet 50 mg PO TID 11/18/21 11/18/21 History 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 Secondary hyperparathyroidism Varicose veins of both legs with edema Surgical History History of bladder surgery TURBT (05/12/18): LMA#5 iGel at [facility] History of carpal tunnel release R/L History of colonoscopy History of hemorrhoidectomy History of lumbar fusion Lumbar History of partial thyroidectomy Goiter excision History of tooth extraction S/P ureteral stent placement Status post insertion of spinal cord stimulator 19+ years ago > no longer functioning but patient states he was advised not to remote unless it gives him issues Family History Mother Hypertension Denies family history of Ovarian cancer Prostate cancer Myocardial infarction Breast cancer Lung cancer Colorectal cancer Social History Smoking Status: Former smoker Tobacco Type: Cigarettes Age Quit Using Tobacco: 54; Second Hand Exposure: No; Hx Alcohol Use: No Hx Substance Use: No Preferred Language: Estonian Communication Ability: Effective Visual Impairment: Limited Hearing Ability: Normal Photogrammetric Surveyor Required: No Beliefs That Will Affect Care: None marital status: Current Living Situation: Spouse current occupational status: retired How many Children do You have: 5 Feels Safe at Home: Yes Childhood Exposure to Second-Hand Smoke: No Diet Comment: regular caffeine: No Dental Care, Regularly: Yes Physical Activity Frequency: Daily Seatbelt Use: always Sunscreen Use: No Assistive Devices: Cane Review of Systems All systems reviewed & are unremarkable except as noted in HPI & below. Physical Exam On physical examination of his left hip, he has pain with logroll. There are no abrasions, lesions, or lacerations of the skin. He is otherwise neurovascular intact.. Constitutional WD/WN, vitals as above Eyes PERRL, conjunctivae normal, anicteric sclerae ENMT external ear and nose normal, oropharynx normal Neck trachea midline, no thyromegaly Respiratory normal respiratory effort, lungs clear to auscultation Cardiovascular RRR, no murmur, no edema Gastrointestinal (Abdomen) normal bowel sounds, soft, nontender, no hepatosplenomegaly Skin no rashes, warm and dry Psychiatric A+Ox3, euthymic affect Results & Data Results & Data Laboratory Results . Diagnostic Findings X-rays of the left hip show a minimally displaced left intertrochanteric hip fracture. CT scan of the left hip confirms a minimally displaced left intertrochanteric hip fracture. PG Care Time/CCT Total # of Minutes Spent Total Time Spent with Patient: Total time spent is greater than 50% in coordination of care (as documented) at patient's floor/unit and/or counseling patient: Coding Level of Care Code 78618 Inpt Consult Level 4 (57 - DECISION FOR SURGERY) Diagnoses Closed intertrochanteric fracture of left hip S72.142A Encounter type: initial encounter Fracture alignment: displaced (1) Closed intertrochanteric fracture of left hip Encounter type: initial encounter Fracture alignment: displaced Qualified Code(s): S72.142A - Displaced intertrochanteric fracture of left femur, initial encounter for closed fracture
[2021-11-19 07:06] LABS: Hematocrit (blood only) 32.3 % (40.1-51.0); Hemoglobin 10.8 g/dl (14.0-18.0); Mean Corpuscular Hemoglobin 32.5 pg (25.0-34.0); Mean Corpuscular Hgb Conc 33.4 g/dL (32.0-36.0); Mean Corpuscular Volume 97.3 fL (80.0-100.0); Platelet Count 122 K/uL (130-400); RDW Coefficient of Variation 12.1 % (11.5-14.5); RDW Standard Deviation 42.7 fL (36.4-46.3); Red Blood Count 3.32 M/uL (4.63-6.08); White Blood Count 8.77 K/ul (4.8-10.8)
--- NOTE | 2021-11-19 07:12 | CT Scan Report ---
HEAD CT NONCONTRAST CT DOSE: 614.27 mGy.cm HISTORY: fall TECHNIQUE: Multiaxial CT images of the head were performed without the use of intravenous contrast. A utomated exposure control was utilized for this study. A dose lowering technique was utilized adheri ng to the principles of ALARA. Comparison: None. Findings: The paranasal sinuses and mastoid air cells are clear. The calvarium and skull base are int act. There is no mass, hematoma, midline shift, acute infarct. White matter hypodensity is nonspecifi c but suggestive of microvascular ischemic change. The ventricles and sulci demonstrate mild age-rela yosi involutional changes. Impression: No acute intracranial abnormality. ACT 112: Negative or not required by law. Electronically signed by: Cristofer Luna M.D. 11/19/2021 7:11 AM
[2021-11-19 07:22] LABS: BUN Creatinine Ratio 19.2 (10-20); Calcium 8.2 mg/dl (8.5-10.1); Creatinine Clr Calc Pharmacy 37.3 ml/min; Est GFR (African American) 56.1 ml/min; Est GFR (Non-African American) 48.4 ml/min; Potassium 4.4 mmol/L (3.5-5.1)
[2021-11-19 07:26] LABS: Basophils # (auto) 0.02 K/uL (0-0.2); Basophils % (auto) 0.2 %; Eosinophils # (auto) 0.12 K/uL (0-0.50); Eosinophils % (auto) 1.4 %; Immature Granulocytes # (auto) 0.03 K/uL (0.00-0.02); Immature Granulocytes % (auto) 0.3 %; Lymphocytes # (auto) 0.52 K/uL (1.2-3.4); Lymphocytes % (auto) 5.9 %; Monocytes # (auto) 0.75 K/uL (0.24-0.82); Monocytes % (auto) 8.6 %; Neutrophils # (auto) 7.33 K/uL (1.4-6.5); Neutrophils % (auto) 83.6 %; RBC Morphology Unremarkable
--- NOTE | 2021-11-19 07:33 | Anesthesiology Consultation ---
Date of Service November 19, 2021 Assessment & Plan (1) Encounter for pre-operative examination: Chart Review Chart Review: data entry specialist initiated History Surgery Operation Date: 11/19/21 07:00 Proposed Procedures p Left Short IM Nail - Praneeth Castillo, Height/Weight Height: 5 ft 8 in Weight: 74.4 kg Allergies Allergy/AdvReac Type Severity Reaction Status Date / Time caffeine Allergy Intermediate Throat Verified 11/18/21 22:12 swelling, hives, redness nitrofurantoin Allergy Unknown Unknown Verified 11/18/21 22:12 Medications Home Medications Medication Instructions Recorded Confirmed Last Taken docusate sodium 100 mg capsule 100 mg PO QPM 04/22/18 11/18/21 11/18/21 (Colace) melatonin 3 mg tablet 3 mg PO HS 04/22/18 11/18/21 11/18/21 vit C 250 mg-vit E 90 mg-zinc 40 1 cap PO BID 06/12/20 11/18/21 11/18/21 mg-copper 1 vt-[id number]-[id number] capsule (PreserVision AREDS-2) cholecalciferol (vitamin D3) 25 25 mcg PO DAILY 02/15/21 11/18/21 11/18/21 mcg (1,000 unit) tablet (Vitamin D3) finasteride 5 mg tablet 5 mg PO QPM #90 tabs 06/11/21 11/18/21 11/18/21 losartan 50 mg tablet 50 mg PO DAILY #90 tabs 09/04/21 11/18/21 11/18/21 methenamine hippurate 1 gram tablet 1 g PO DAILY #90 tabs 09/17/21 11/18/21 11/18/21 tramadol 50 mg tablet 50 mg PO TID 11/18/21 11/18/21 11/18/21 Active Medications Generic Name Dose Route Start Last Admin Trade Name Freq PRN Reason Stop Dose Admin Dextrose/Lactated Ringer's 1,000 mls @ 80 mls/hr 11/18/21 22:45 11/19/21 00:57 D5w And Lactated Ringers IV 12/18/21 22:44 80 mls/hr .[id number] Administration Morphine Sulfate 3 mg 11/18/21 22:15 11/18/21 22:33 Morphine Sulfate 4 Mg/Ml 1 Ml Carp\Vial IV 12/02/21 22:14 3 mg Q3H PRN Administration Pain NPO Date Last Intake of Solids: 11/18/21 Past Medical History Medical History Anemia Aortic stenosis, moderate Moderate aortic stenosis (SAHRA 1.1cm2, MG 22.8mmhg) per 05/05/18 Arthritis Benign prostatic hyperplasia with urinary obstruction Bifascicular block Chronic, dating back to at least 2017 Chronic kidney disease, stage 3 (moderate) Gout Hyperlipidemia Hypertension Insomnia Macular degeneration Pancreatic lesion 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 Secondary hyperparathyroidism Varicose veins of both legs with edema Past Family History Family History Mother Hypertension Denies family history of Ovarian cancer Prostate cancer Myocardial infarction Breast cancer Lung cancer Colorectal cancer Past Surgical History Surgical History History of bladder surgery TURBT (05/12/18): LMA#5 iGel at [facility] History of carpal tunnel release R/L History of colonoscopy History of hemorrhoidectomy History of lumbar fusion Lumbar History of partial thyroidectomy Goiter excision History of tooth extraction S/P ureteral stent placement Status post insertion of spinal cord stimulator 19+ years ago > no longer functioning but patient states he was advised not to remote unless it gives him issues Social History Smoking Status: Former smoker Hx Alcohol Use: No Hx Substance Use: No substance use type: does not use Physical Exam Vital Signs Last Vital Signs Temp 97.7 F 11/19/21 01:00 Pulse 95 H 11/19/21 01:00 Resp 18 11/19/21 01:00 BP 170/92 H 11/19/21 01:00 Pulse Ox 97 11/19/21 01:00 O2 Del Method 11/19/21 01:00 O2 Flow Rate 3 11/19/21 01:00 Testing Laboratory Results 11/19/21 06:03 11/19/21 06:03 PT 11.3 Seconds (9.0-12.0) 11/18/21 20:28 INR 1.1 (0.9-1.1) 11/18/21 20:28 APTT 25.7 Seconds (21.0-31.0) 11/18/21 20:28 Electrocardiogram Date: 11/18/21 Sinus rhythm with 1st degree A-V block with Premature atrial complexes, rate 81 bpm Left axis deviation Right bundle branch block Septal infarct (cited on or before 15-FEB-2021) Abnormal ECG When compared with ECG of 16-FEB-2021 09:10, Sinus rhythm has replaced Atrial fibrillation Questionable change in initial forces of Septal leads Echocardiogram Date: 05/05/18 EF >70%. No RWMA. Moderate aortic stenosis (SAHRA 1.1cm2, MG 22.8mmhg). Moderate to severe aortic calcification. Borderline dilated ascending aorta. Borderline aortic root dilation. Moderate mitral annular cacification.
[2021-11-19 07:35] LABS: Troponin I High Sensitivity 52.5 pg/ml (0-20)
--- NOTE | 2021-11-19 08:14 | CT Scan Report ---
CT hip LT wo con HISTORY: 89 years-old Male fall acute left hip pain status post fall COMPARISON: Pelvis and hip radiographs of same day, CT abdomen and pelvis 08/25/2021 TECHNIQUE: Multiple axial CT images of the left hip were obtained without the use of IV contrast. A d ose lowering technique was used consistent with the principals of CONCETTA. FINDINGS: Confirmation of the acute intertrochanteric fracture of the left femur also seen on the radiographs o f same day. There is approximately 1.8 cm of impaction. Separation of the fracture fragments measures up to approximately 8 mm anteriorly with minimal apex volar angulation and mild comminution. 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 No additional acute fracture, dislocation or avascular necrosis. Th e imaged left hemipelvis appears intact. Distended urinary bladder. Partially imaged left ureteral stent. Prostamegaly. Atherosclerosis of the iliac arteries. Colonic diverticulosis. IMPRESSION: Acute intertrochanteric left femoral fracture with mild impaction, slight angulation and displacement . ACT 112: Negative or not required by law. The above report was generated using voice recognition software. It may contain grammatical, syntax o r spelling errors. Electronically signed by: Mak Sanders M.D. 11/19/2021 8:13 AM
--- NOTE | 2021-11-19 08:29 | XRay Report ---
XR hip LT 2V w pelvis HISTORY: 89 years-old Male fall acute left hip pain status post fall COMPARISON: CT left hip of same day TECHNIQUE: AP view of the pelvis with 2 views of the left hip FINDINGS: Partially imaged left ureteral stent. Electronic device projects over the sacrum. Vascular calcificat ions. Mild to moderate osteoarthritis of the hips. There is an acute mildly impacted intratrochanteri c fracture of the left femur without significant displacement identified. Mild adjacent soft tissue s welling. IMPRESSION: Acute mildly impacted intratrochanteric fracture of the left femur. ACT 112: Negative or not required by law. The above report was generated using voice recognition software. It may contain grammatical, syntax o r spelling errors. Electronically signed by: Mak Sanders M.D. 11/19/2021 8:28 AM
--- NOTE | 2021-11-19 09:09 | XRay Report ---
XR chest 1V portable HISTORY: 89 years-old Male Chest Pain acute chest pain COMPARISON: Acute abdominal series radiographs 10/18/2021 TECHNIQUE: AP view of the chest FINDINGS: Cardiomediastinal and hilar silhouettes are unchanged. Mild subsegmental left basilar atelectasis dejuan manuel scarring. No pneumothorax, pleural effusion, airspace consolidation or overt pulmonary edema. Hea led chronic left-sided rib fractures. Degenerative changes of the shoulders and spine. Partially imag ed left ureteral stent. IMPRESSION: No acute process. ACT 112: Negative or not required by law. The above report was generated using voice recognition software. It may contain grammatical, syntax o r spelling errors. Electronically signed by: Mak Sanders M.D. 11/19/2021 9:08 AM
--- NOTE | 2021-11-19 09:55 | XCELERA ---
[id number]
--- NOTE | 2021-11-19 13:28 | Cardiology Consultation ---
Date of Consultation November 19, 2021 Assessment & Plan (1) Aortic stenosis: -echocardiogram now notes severe aortic stenosis. -fortunately, this has not been symptomatic. -he will require an orthopedic procedure. -would avoid extremes of blood pressure and hydration. (2) Hypertension: -losartan and finasteride currently on hold. -would restart his medications as blood pressure dictates. (3) Bifascicular block: -chronic finding since 2017. (4) Preop cardiovascular exam: -operative risk moderate, but acceptable. -as above, avoid extremes of blood pressure and hydration. History of Present Illness Attending Physician: Liat Porter MD History of Present Illness Mr. Choi is an 89-year-old male admitted earlier today after a mechanical fall which resolved and a left hip intertrochanteric fracture. This consultation was ordered as a preoperative evaluation. The patient was in his usual state of health until last evening. He was walking in his home when he lost his balance. He stumbled into a door frame and then fell abruptly onto his left side. He had immediate pain in his left hip and was unable to ambulate. X-rays revealed an acute left hip fracture. He is scheduled for surgical repair later today. He does carry history of moderate aortic stenosis which was evaluated by an echocardiogram in April 2018. Aortic valve area at that time was 1.1 cm2. The patient has been well from a cardiac perspective. He is able to carry on activities of daily life without exertional chest pain or limiting dyspnea. He further denies syncope, presyncope, PND, orthopnea, palpitations, lower extremity edema, and claudication. Currently, patient is resting comfortably in bed without complaints. Past medical and surgical history 1. Hypertension 2. Hypercholesterolemia 3. Moderate aortic stenosis 4. RBBB 5. Left anterior hemiblock 6. Chronic renal failure 7. Gout 8. Pancreatic lesion-IPMN 9. BPH 10. Transitional cell carcinoma of the bladder with lung and bone mets 11. Left renal urothelial carcinoma-laser therapy 12. Medically degeneration 13. DJD 14. TURP 15. Ureteral stents 16. Bilateral carpal tunnel release 17. Hemorrhoidectomy 18. Lumbar fusion 19. Thyroidectomy 20. Spinal cord stimulator Social history and lives with his Quit tobacco use at age 54 No alcohol Family history Noncontributory Review of systems A 10 point review systems was undertaken and negative except for that described above. Allergies Allergy/AdvReac Type Severity Reaction Status Date / Time caffeine Allergy Intermediate Throat Verified 11/18/21 22:12 swelling, hives, redness nitrofurantoin Allergy Unknown Unknown Verified 11/18/21 22:12 Home Medications Medication Instructions Recorded Confirmed Type docusate sodium 100 mg capsule 100 mg PO QPM 04/22/18 11/18/21 History (Colace) melatonin 3 mg tablet 3 mg PO HS 04/22/18 11/18/21 History vit C 250 mg-vit E 90 mg-zinc 40 1 cap PO BID 06/12/20 11/18/21 History mg-copper 1 wm-mcnoqm-kujntc capsule (PreserVision AREDS-2) cholecalciferol (vitamin D3) 25 25 mcg PO DAILY 02/15/21 11/18/21 History mcg (1,000 unit) tablet (Vitamin D3) finasteride 5 mg tablet 5 mg PO QPM #90 tabs 06/11/21 11/18/21 Rx losartan 50 mg tablet 50 mg PO DAILY #90 tabs 09/04/21 11/18/21 Rx methenamine hippurate 1 gram tablet 1 g PO DAILY #90 tabs 09/17/21 11/18/21 Rx tramadol 50 mg tablet 50 mg PO TID 11/18/21 11/18/21 History Patient History Medical History Anemia Aortic stenosis, moderate Moderate aortic stenosis (SAHRA 1.1cm2, MG 22.8mmhg) per 05/05/18 Arthritis Benign prostatic hyperplasia with urinary obstruction Bifascicular block Chronic, dating back to at least 2017 Chronic kidney disease, stage 3 (moderate) Gout Hyperlipidemia Hypertension Insomnia Macular degeneration Pancreatic lesion 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 Secondary hyperparathyroidism Varicose veins of both legs with edema Surgical History History of bladder surgery TURBT (05/12/18): LMA#5 iGel at [facility] History of carpal tunnel release R/L History of colonoscopy History of hemorrhoidectomy History of lumbar fusion Lumbar History of partial thyroidectomy Goiter excision History of tooth extraction S/P ureteral stent placement Status post insertion of spinal cord stimulator 19+ years ago > no longer functioning but patient states he was advised not to remote unless it gives him issues Family History Mother Hypertension Denies family history of Ovarian cancer Prostate cancer Myocardial infarction Breast cancer Lung cancer Colorectal cancer Social History Smoking Status: Former smoker Tobacco Type: Cigarettes Age Quit Using Tobacco: 54; Second Hand Exposure: No; Hx Alcohol Use: No Hx Substance Use: No Preferred Language: Kinyarwanda Communication Ability: Effective Visual Impairment: Limited Hearing Ability: Normal Magistrate Assistant Required: No Beliefs That Will Affect Care: None marital status: Current Living Situation: Spouse current occupational status: retired How many Children do You have: 5 Feels Safe at Home: Yes Childhood Exposure to Second-Hand Smoke: No Diet Comment: regular caffeine: No Dental Care, Regularly: Yes Physical Activity Frequency: Daily Seatbelt Use: always Sunscreen Use: No Assistive Devices: Cane Physical Exam Physical Exam: In general is a well-developed well-nourished white male in no acute distress. HEENT exam is negative. Neck is supple with delayed and prolonged carotid upstrokes. A transmitted murmurs noted bilaterally. Cardiovascular exam reveals a 3/6 crescendo decrescendo systolic murmur heard loudest at the base. S2 is not audible at the apex. Lungs are clear without rales, rhonchi, or wheezes. Abdomen is soft without bruits. Extremities reveal intact radial artery pulses bilaterally. There is no peripheral edema. Results & Data ([facility]) Vital Signs (Past 12 Hours) Vital Signs Temp Pulse Resp BP Pulse Ox O2 Del Method O2 Flow Rate 11/19/21 11:29 36.5 C 85 18 153/75 H 95 Room Air 11/19/21 07:54 36.7 C 89 18 138/76 93 Nasal Cannula 2 11/19/21 07:52 Nasal Cannula 2 PG Care Time/CCT Total # of Minutes Spent Total Time Spent with Patient: Total time spent is greater than 50% in coordination of care (as documented) at patient's floor/unit and/or counseling patient: Coding Level of Care Code 41101 Initial Inpt Care Lvl 3 Diagnoses Aortic stenosis I35.0 Hypertension I10 Bifascicular block I45.2 Preop cardiovascular exam Z01.810
[2021-11-19] MEDS ORDERED: ACETAMINOPHEN 325 MG TAB PO PRN (14:26)
--- NOTE | 2021-11-19 14:42 | Hospitalist Progress Note ---
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 The pt suffered a mechanical fall on his L side and could not bear weight following. He was transported to the ER where imaging confirmed a L intertrochanteric fracture. He has no additional complaints at the time of admission. He does state that he was due for immune therapy the following day. Labs are notable for mild anemia and a trop of 38. Hip fracture - ortho consult appreciated-plan for ORIF was delayed today due to cardiac reasons as below -Continue bedrest -Continue pain control with Tylenol, IV morphine, and add his home tramadol on as needed -bowel regimen as needed -N.p.o. after midnight tonight for surgery tomorrow -Continue D5LR 80 mL/h -he will need PT/OT and rehab placement postoperatively -Follow CBC, BMP (2) Demand ischemia of myocardium: Plan: If troponin elevated and continues to rise to the day. Patient is asymptomatic without chest pain or shortness of breath ECG without ischemic changes but with chronic bifascicular block Echocardiogram shows severe aortic stenosis and moderate LVH, no wall motion abnormalities Appreciate cardiology consultation This is not an NSTEMI He does not need further ischemic evaluation and is moderate to high risk for cardiovascular perioperative event-discussed with patient and his family but recommend proceeding with hip surgery due to the nature of high risk of morbidity and mortality if hip repair not completed -Follow troponin until peaks (3) Aortic stenosis: Plan: Echocardiogram on 11/20 now shows severe aortic stenosis He is not symptomatic with this-no history of angina, syncope, heart failure His with preserved EF Avoid extremes of blood pressure and hydration as recommended by cardiology in the perioperative period Interestingly, he has 2 sons who have had aortic valve replacement for bicuspid aortic valve Follow as an outpatient but not likely to need TAVR in the near future, nor does he seem keen on the idea to begin (4) Symptomatic cholelithiasis: Plan: Patient with several months of symptomatic cholelithiasis which is only improved slightly with following a low-fat diet They are interested in nonsurgical options Recommended ursodiol 300 mg p.o. twice daily-we will order to start the day after surgery -When tolerating p.o., would recommend low-fat diet --Recommend follow-up with GI as an outpatient. 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 Salvador, he was admitted and was to have an appointment today in the cancer center-she will ask the nurse to bring him consent forms to fill out for chemotherapy (8) B12 deficiency: Plan: B12 was low in 11/2020 He has anemia as well as low platelets here which can be from B12 deficiency Check levels in the morning replace as needed (9) Benign prostatic hyperplasia with urinary obstruction: Plan: Continue home finasteride Watch for urinary retention after surgery (10) Chronic kidney disease, stage 3 (moderate): Plan: Creatinine around baseline -Avoid nephrotoxins -renally dose meds when appropriate -follow BMP (11) Pancreatic lesion: Plan: He reports this has been stable for several years Follow as an outpatient Plan DVT prophylaxis-SCDs Disposition-continued stay, plan for hip surgery on 11/20 Will need rehab after that, PT/OT Admission and Anticipated Discharge Date Admission Date: November 18, 2021 Subjective Patient is having some pain in the left hip and also some more chronic pain in the right sided 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 He denies any chest pains or shortness of breath. No history of chest pains with exertion, no syncope, no leg swelling. Hip repair was delayed today due to elevated troponin and finding of severe aortic stenosis on echocardiogram. I discussed this case with orthopedic surgery as well as cardiology. Patient's daughter also inquires about his chronic postprandial right upper quadrant pain thought to be secondary to symptomatic cholelithiasis. This was discovered on an ER visit approximately 1 month ago when he had cholelithiasis seen on abdominal ultrasound and mildly elevated alkaline phosphatase. He has been trying to follow a low-fat diet since that time which has been quite difficult he continues to have pain that would last for hours after eating. Review of Systems Review of Systems: All systems reviewed & are unremarkable except as noted in HPI & below Physical Exam Constitutional: WD/WN, vitals as above Eyes: + anicteric sclerae ENMT: external ear and nose normal, oropharynx normal Neck: trachea midline, no thyromegaly Respiratory: normal respiratory effort, lungs clear to auscultation Cardiovascular: Rate/Rhythm: regular rate and regular rhythm Heart Sounds: + murmur (3/6 LISA at RUSB) Chest (Breasts): Chest: normal inspection of chest Gastrointestinal (Abdomen): normal bowel sounds, soft, nontender, no hepatosplenomegaly Musculoskeletal: Extremities: extremities normal to inspection; no cyanosis and no clubbing No significant tenderness palpation of the left hip Skin: no rashes, warm and dry Neurologic: moves all extremities and awake; no focal motor deficits Psychiatric: A+Ox3, euthymic affect Lymphatic: no lymphedema Results & Data Results & Data ([facility]) Vital Signs (Past 12 Hours) Vital Signs Temp Pulse Resp BP Pulse Ox O2 Del Method O2 Flow Rate 11/19/21 11:29 36.5 C 85 18 153/75 H 95 Room Air 11/19/21 07:54 36.7 C 89 18 138/76 93 Nasal Cannula 2 11/19/21 07:52 Nasal Cannula 2 Laboratory Results 11/19/21 11/19/21 11/19/21 Range/Units 17:54 11:54 06:03 WBC (4.8-10.8) K/ul RBC (4.63-6.08) M/uL Hgb (14.0-18.0) g/dl Hct (40.1-51.0) % MCV (80.0-100.0) fL MCH (25.0-34.0) pg MCHC (32.0-36.0) g/dL RDW Std Deviation (36.4-46.3) fL RDW Coeff of Jazmyne (11.5-14.5) % Plt Count (130-400) K/uL MPV (9.4-12.4) fL Immature Gran % (Auto) % Neut % (Auto) % Lymph % (Auto) % [place] % (Auto) % Eos % (Auto) % Baso % (Auto) % Neut # (Auto) (1.4-6.5) K/uL Lymph # (Auto) (1.2-3.4) K/uL [place] # (Auto) (0.24-0.82) K/uL Eos # (Auto) (0-0.50) K/uL Baso # (Auto) (0-0.2) K/uL Immature Gran # (Auto) (0.00-0.02) K/uL RBC Morphology Sodium (136-145) mmol/L Potassium (3.5-5.1) mmol/L Chloride (98-107) mmol/L Carbon Dioxide (21-32) mmol/L Anion Gap (3-11) BUN (6-23) mg/dl Creatinine (0.6-1.4) mg/dl Est Cr Clr Drug Dosing ml/min Est GFR ( Amer) ml/min Est GFR (Non-Af Amer) ml/min BUN/Creatinine Ratio (10-20) Glucose (70-99(Fasting)) mg/dl Calcium (8.5-10.1) mg/dl Magnesium (1.7-2.4) mg/dl Troponin I High Sens 90.3 H* D 65.9 H* D (0-20) pg/ml Blood Type O Positive Antibody Screen NEGATIVE 11/19/21 11/19/21 Range/Units 06:03 06:03 WBC 8.77 (4.8-10.8) K/ul RBC 3.32 L (4.63-6.08) M/uL Hgb 10.8 L (14.0-18.0) g/dl Hct 32.3 L (40.1-51.0) % MCV 97.3 (80.0-100.0) fL MCH 32.5 (25.0-34.0) pg MCHC 33.4 (32.0-36.0) g/dL RDW Std Deviation 42.7 (36.4-46.3) fL RDW Coeff of Jazmyne 12.1 (11.5-14.5) % Plt Count 122 L (130-400) K/uL MPV 10.0 (9.4-12.4) fL Immature Gran % (Auto) 0.3 % Neut % (Auto) 83.6 % Lymph % (Auto) 5.9 % [place] % (Auto) 8.6 % Eos % (Auto) 1.4 % Baso % (Auto) 0.2 % Neut # (Auto) 7.33 H (1.4-6.5) K/uL Lymph # (Auto) 0.52 L (1.2-3.4) K/uL [place] # (Auto) 0.75 (0.24-0.82) K/uL Eos # (Auto) 0.12 (0-0.50) K/uL Baso # (Auto) 0.02 (0-0.2) K/uL Immature Gran # (Auto) 0.03 H (0.00-0.02) K/uL RBC Morphology Unremarkable Sodium 137 (136-145) mmol/L Potassium 4.4 (3.5-5.1) mmol/L Chloride 105 (98-107) mmol/L Carbon Dioxide 28 (21-32) mmol/L Anion Gap 4 (3-11) BUN 25 H (6-23) mg/dl Creatinine 1.30 (0.6-1.4) mg/dl Est Cr Clr Drug Dosing 37.3 ml/min Est GFR ( Amer) 56.1 ml/min Est GFR (Non-Af Amer) 48.4 ml/min BUN/Creatinine Ratio 19.2 (10-20) Glucose 125 H (70-99(Fasting)) mg/dl Calcium 8.2 L (8.5-10.1) mg/dl Magnesium 2.0 (1.7-2.4) mg/dl Troponin I High Sens 52.5 H* D (0-20) pg/ml Blood Type Antibody Screen PG Care Time/CCT Total # of Minutes Spent Total Time Spent with Patient: Total time spent is greater than 50% in coordination of care (as documented) at patient's floor/unit and/or counseling patient: Coding Level of Care Code 44671 Subseq Hosp Care Lvl 3 Diagnoses Closed intertrochanteric fracture of left hip S72.142A Encounter type: initial encounter Fracture alignment: displaced Demand ischemia of myocardium I24.8 Aortic stenosis I35.0 Symptomatic cholelithiasis K80.20 Hypertension I10 Anemia D64.9 Transitional cell carcinoma of left kidney C64.2 B12 deficiency E53.8 Benign prostatic hyperplasia with urinary obstruction N40.1; N13.8 Chronic kidney disease, stage 3 (moderate) N18.3 Pancreatic lesion K86.9 (1) Closed intertrochanteric fracture of left hip Encounter type: initial encounter Fracture alignment: displaced Qualified Code(s): S72.142A - Displaced intertrochanteric fracture of left femur, initial encounter for closed fracture
[2021-11-19] MEDS: MoRPHine SULFATE 4 MG/ML 1 ML CARP\\VIAL IV PRN (14:47)
[2021-11-19] MEDS ORDERED: INFLUENZA VACCINE HIGH DOSE PF 65+ 0.7 ML SYR IM ONE (15:00)
--- NOTE | 2021-11-19 15:30 | Electrocardiogram Report ---
Test Reason : Blood Pressure : / mmHG Vent. Rate : 081 BPM Atrial Rate : 081 BPM P-R Int : 216 ms QRS Dur : 148 ms QT Int : 428 ms P-R-T Axes : 056 -78 028 degrees QTc Int : 497 ms Sinus rhythm with 1st degree A-V block with Premature atrial complexes Left axis deviation Right bundle branch block Left axis deviation Septal infarct (cited on or before 15-FEB-2021) Abnormal ECG When compared with ECG of 16-FEB-2021 09:10, Questionable change in initial forces of Septal leads Confirmed by Mauricio Garcia [id number]) on 11/19/2021 3:29:53 PM Referred By: REFERRED SELF Confirmed By:Mauricio Garcia
[2021-11-19] MEDS: MELATONIN 3 MG TAB PO SCH (21:18)
[2021-11-19] MEDS: DOCUSATE SODIUM 100 MG CAP PO SCH (21:19)
[2021-11-19] MEDS: FINASTERIDE 5 MG TAB PO SCH ×2 (21:19→21:22)
[2021-11-19] MEDS: DOCUSATE SODIUM/SENNA 50/8.6MG TAB PO SCH (21:19)
[2021-11-20] MEDS: D5W AND LACTATED RINGERS 1,000 ML IV SCH ×2 (00:13→16:00)
[2021-11-20 07:09] LABS: Basophils # (auto) 0.04 K/uL (0-0.2); Basophils % (auto) 0.5 %; Eosinophils # (auto) 0.16 K/uL (0-0.50); Eosinophils % (auto) 1.9 %; Hematocrit (blood only) 31.5 % (40.1-51.0); Hemoglobin 10.6 g/dl (14.0-18.0); Immature Granulocytes # (auto) 0.06 K/uL (0.00-0.02); Immature Granulocytes % (auto) 0.7 %; Lymphocytes # (auto) 0.47 K/uL (1.2-3.4); Lymphocytes % (auto) 5.7 %; Mean Corpuscular Hemoglobin 32.6 pg (25.0-34.0); Mean Corpuscular Hgb Conc 33.7 g/dL (32.0-36.0); Mean Corpuscular Volume 96.9 fL (80.0-100.0); Mean Platelet Volume 10.3 fL (9.4-12.4); Monocytes # (auto) 0.68 K/uL (0.24-0.82); Monocytes % (auto) 8.3 %; Neutrophils % (auto) 82.9 %; Platelet Count 115 K/uL (130-400); RDW Coefficient of Variation 12.2 % (11.5-14.5); Red Blood Count 3.25 M/uL (4.63-6.08); White Blood Count 8.21 K/ul (4.8-10.8)
[2021-11-20 07:35] LABS: BUN Creatinine Ratio 15.2 (10-20); Calcium 8.5 mg/dl (8.5-10.1); Creatinine Clr Calc Pharmacy 36.7 ml/min; Est GFR (Non-African American) 47.5 ml/min; Potassium 4.1 mmol/L (3.5-5.1)
[2021-11-20 07:42] LABS: Troponin I High Sensitivity 261.4 pg/ml (0-20)
[2021-11-20] MEDS ORDERED: BUPIVACAINE 0.5 % 5 MG/1 ML PF 10ML VIAL ONE (07:49)
--- NOTE | 2021-11-20 09:09 | Orthopedic Progress Note ---
Date of Service November 20, 2021 Assessment & Plan (1) Closed intertrochanteric fracture of left hip: NPO today. Plan on IM nailing of left hip with Dr. Sanchez or Dr. Saleh if medically optimized. Apparently his troponin was elevated this morning. Hospitalist and cardiology following. Subjective . Pain controlled as long as he doesn't try moving his hip. No other complaints. Denies chest pain or shortness of breath Review of Systems All systems reviewed & are unremarkable except as noted in HPI & below. Physical Exam .alert. NAD Left leg: externally rotated. Able to dorsiflex and plantarflex. NVI Results & Data Results & Data Laboratory Results . Diagnostic Findings . PG Care Time/CCT Total # of Minutes Spent Total Time Spent with Patient: Total time spent is greater than 50% in coordination of care (as documented) at patient's floor/unit and/or counseling patient: Coding Level of Care Code 58133 Subseq Hosp Care Lvl 2 Diagnoses Closed intertrochanteric fracture of left hip S72.142A Encounter type: initial encounter Fracture alignment: displaced (1) Closed intertrochanteric fracture of left hip Encounter type: initial encounter Fracture alignment: displaced Qualified Code(s): S72.142A - Displaced intertrochanteric fracture of left femur, initial encounter for closed fracture
[2021-11-20] MEDS: CYANOCOBALAMIN 1000 MCG/ML VIAL IM SCH (10:26)
--- NOTE | 2021-11-20 11:04 | Hospitalist Progress Note ---
Date of Service November 20, 2021 Assessment & Plan (1) Closed intertrochanteric fracture of left hip: Plan: Appreciate orthopedic consultation. Scheduled for left hip nail by Dr Sanchez today. Check 25-OH vit D level. DVT proph - would prefer chemical means (xarelto, lovenox, etc) in light concurrent cancer. Will need to d/w surgery. From medical standpoint he appears optimized. Although troponin level karina further overnight he continues to not have ANY cardiopulmonary symptoms. His echo shows severe but he is compensated from volume standpoint and EF is preserved. No wall motion abnormalities. I briefly discussed his case with cardiology this am and there is nothing further to add perioperatively from cardiac standpoint. I believe the elevated troponin still represents demand ischemia the setting of his left hip fracture. No symptoms at this time to suggest recent PE event, etc. (2) Demand ischemia of myocardium: Plan: Patient continues to be asymptomatic without chest pain or shortness of breath. ECG without ischemic changes. Has chronic bifascicular block. Echocardiogram shows severe aortic stenosis and moderate LVH, no wall motion abnormalities, preserved EF. Although the AM troponin karina further overnight this still likely represents demand ischemia and NOT an ACS event. Would check 1 more troponin late this morning to ensure stability. (3) Elevated troponin: Plan: see above in #2 (4) Aortic stenosis: Plan: No symptoms from the at this time but caution with IV fluid perioperatively, etc. (5) Symptomatic cholelithiasis: Plan: Patient with several months of symptomatic cholelithiasis which is only improved slightly with following a low-fat diet. He is interested in nonsurgical options. Start ursodiol 300 mg p.o. twice daily in addition to low-fat diet. Recommend follow-up with GI as an outpatient. He has been referred to general surgery but given his severe aortic stenosis, doubtful that he would undergo an elective cholecystectomy and he doesn't seem interested in that option either. (6) Hypertension: Plan: Cont to hold losartan (7) Anemia: Plan: Acute blood loss anemia from hip fracture itself. Repeat CBC in am tomorrow. (8) Transitional cell carcinoma of left kidney: Plan: Scheduled for immune therapy in the near future along with radiation of the right 8th rib. Prior attending hospitalist notified Dr. Salvador about his admission. She stated should would ask her staff to bring him consent forms to fill out for his future chemotherapy. (9) B12 deficiency: Plan: B12 was low in 11/2020 B12 today continues to be low at 130 Start B12 injections 1000mcg daily x 5 days then PO supplementation thereafter Check a folate level to be complete (10) Benign prostatic hyperplasia with urinary obstruction: Plan: Continue home finasteride Watch for urinary retention postop (11) Chronic kidney disease, stage 3 (moderate): Plan: Creatinine remains stable Repeat BMP in am CrCl at baseline is 30s c/w stage 3b (12) Pancreatic lesion: Plan: He reports this has been stable for several years no Rx needed at this time (13) Thrombocytopenia: Plan: likely consumptive from his L hip fracture. also the B12 def is likely contributing. CBC daily. replace low B12. 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 left hip pain is controlled denies any other new location of pain Review of Systems Review of Systems: gen - no fevers cv - no chest pain pulm - no cough GI - no abd pain, nausea, emesis Physical Exam Physical Exam: gen - NAD, pleasant mouth - MM dry; ?thrush plaques buccal mucosa neck - no JVD heart - RRR, s1 s2, 2/6 holosystolic murmur RUSB/apex lungs - CTA b/l abd - soft NT ND BS+; no HSM ext - left leg shorter and modestly externally rotated; left thigh edema present vasc - pulses feet 2+ b/l Results & Data Results & Data ([facility]) Vital Signs (Past 12 Hours) Vital Signs Temp Pulse Resp BP Pulse Ox O2 Del Method O2 Flow Rate 11/20/21 07:55 Nasal Cannula 2 11/20/21 07:33 36.8 C 93 H 16 149/79 H 94 11/20/21 03:24 36.7 C 86 18 139/79 94 Nasal Cannula 2 11/19/21 23:43 36.6 C 88 14 150/79 H 93 Nasal Cannula 2 Laboratory Results Laboratory Results - last 24 hr 11/19/21 11/19/21 11/20/21 11:54 17:54 06:24 WBC 8.21 RBC 3.25 L Hgb 10.6 L Hct 31.5 L MCV 96.9 MCH 32.6 MCHC 33.7 RDW Std Deviation 43.0 RDW Coeff of Jazmyne 12.2 Plt Count 115 L MPV 10.3 Immature Gran % (Auto) 0.7 Neut % (Auto) 82.9 Lymph % (Auto) 5.7 Ward % (Auto) 8.3 Eos % (Auto) 1.9 Baso % (Auto) 0.5 Neut # (Auto) 6.80 H Lymph # (Auto) 0.47 L Ward # (Auto) 0.68 Eos # (Auto) 0.16 Baso # (Auto) 0.04 Immature Gran # (Auto) 0.06 H Sodium Potassium Chloride Carbon Dioxide Anion Gap BUN Creatinine Est Cr Clr Drug Dosing Est GFR ( Amer) Est GFR (Non-Af Amer) BUN/Creatinine Ratio Glucose Calcium Troponin I High Sens 65.9 H* D 90.3 H* D Vitamin B12 11/20/21 11/20/21 06:24 06:24 WBC RBC Hgb Hct MCV MCH MCHC RDW Std Deviation RDW Coeff of Jazmyne Plt Count MPV Immature Gran % (Auto) Neut % (Auto) Lymph % (Auto) Ward % (Auto) Eos % (Auto) Baso % (Auto) Neut # (Auto) Lymph # (Auto) Ward # (Auto) Eos # (Auto) Baso # (Auto) Immature Gran # (Auto) Sodium 136 Potassium 4.1 Chloride 106 Carbon Dioxide 26 Anion Gap 4 BUN 20 Creatinine 1.32 Est Cr Clr Drug Dosing 36.7 Est GFR ( Amer) 55.0 Est GFR (Non-Af Amer) 47.5 BUN/Creatinine Ratio 15.2 Glucose 130 H Calcium 8.5 Troponin I High Sens 261.4 H* D Vitamin B12 130 L PG Care Time/CCT Total # of Minutes Spent Total Time Spent with Patient: Total time spent is greater than 50% in coordination of care (as documented) at patient's floor/unit and/or counseling patient: Coding Level of Care Code 02641 Subseq Hosp Care Lvl 3 Diagnoses Closed intertrochanteric fracture of left hip S72.142A Encounter type: initial encounter Fracture alignment: displaced Demand ischemia of myocardium I24.8 Elevated troponin R77.8 Aortic stenosis I35.0 Symptomatic cholelithiasis K80.20 Hypertension I10 Anemia D64.9 Transitional cell carcinoma of left kidney C64.2 B12 deficiency E53.8 Benign prostatic hyperplasia with urinary obstruction N40.1; N13.8 Chronic kidney disease, stage 3 (moderate) N18.3 Pancreatic lesion K86.9 Thrombocytopenia D69.6 (1) Closed intertrochanteric fracture of left hip Encounter type: initial encounter Fracture alignment: displaced Qualified Code(s): S72.142A - Displaced intertrochanteric fracture of left femur, initial encounter for closed fracture
--- NOTE | 2021-11-20 12:09 | Cardiology Progress Note ---
Date of Service November 20, 2021 Assessment & Plan (1) Aortic stenosis: Plan: -echocardiogram notes severe aortic stenosis. -fortunately, this remains asymptomatic. -orthopedic surgery planned for today. -would avoid extremes of blood pressure and hydration. (2) Hypertension: Plan: -losartan and finasteride currently on hold. -restart medications as blood pressure dictates. (3) Bifascicular block: Plan: -chronic finding since 2017. (4) Preop cardiovascular exam: Plan: -operative risk moderate, but acceptable. -as above, avoid extremes of blood pressure and hydration. (5) Elevated troponin: Plan: -minor elevation likely related to his left ventricular hypertrophy. -he has not experienced any chest discomfort or dyspnea. -okay to proceed with surgery today. Admission and Anticipated Discharge Date Admission Date: November 18, 2021 Subjective The patient is resting comfortably in bed without complaints of chest pain or dyspnea. Physical Exam Physical Exam: In general is a well-developed well-nourished white male in no acute distress. HEENT exam is negative. Neck is supple with delayed and prolonged carotid upstrokes. A transmitted murmur is noted bilaterally. Cardiovascular exam reveals a 3/6 crescendo decrescendo systolic murmur heard loudest at the base. S2 is not audible at the apex. Lungs are clear without rales, rhonchi, or wheezes. Abdomen is soft without bruits. Extremities reveal intact radial artery pulses bilaterally. There is no peripheral edema. Results & Data ([facility]) Vital Signs (Past 12 Hours) Vital Signs Temp Pulse Resp BP Pulse Ox O2 Del Method O2 Flow Rate 11/20/21 07:55 Nasal Cannula 2 11/20/21 07:33 36.8 C 93 H 16 149/79 H 94 11/20/21 03:24 36.7 C 86 18 139/79 94 Nasal Cannula 2 PG Care Time/CCT Total # of Minutes Spent Total Time Spent with Patient: Total time spent is greater than 50% in coordination of care (as documented) at patient's floor/unit and/or counseling patient: Coding Level of Care Code 68022 Subseq Hosp Care Lvl 3 Diagnoses Aortic stenosis I35.0 Hypertension I10 Bifascicular block I45.2 Preop cardiovascular exam Z01.810 Elevated troponin R77.8
[2021-11-20] MEDS ORDERED: NEOSTIGMINE METHYLSULFATE 1 MG/ML 10ML VIAL ONE (12:17)
[2021-11-20] MEDS ORDERED: GLYCOPYRROLATE 0.2 MG/ML VIAL ONE (12:17)
[2021-11-20] MEDS ORDERED: ROCURONIUM BROMIDE 10 MG/ML 5 ML VIAL IV ONE (12:17)
[2021-11-20] MEDS ORDERED: ONDANSETRON INJ 2 MG/ML 2 ML VIAL ONE (12:17)
[2021-11-20] MEDS ORDERED: DEXAMETHASONE SOD INJ 4 MG/ML VIAL ONE (12:17)
[2021-11-20] MEDS ORDERED: PROPOFOL IV EMULSION 10 MG/ML 20 ML VIAL IV ONE (12:17)
[2021-11-20] MEDS ORDERED: fentaNYL citrate 100 MCG/2 ML VIAL ONE (12:17)
[2021-11-20] MEDS ORDERED: LIDOCAINE 2% MPF LOCAL 5 ML VIAL INFIL ONE (12:17)
[2021-11-20 12:27] LABS: Folate (Folic Acid) 17.04 ng/ml (>5.38)
[2021-11-20 12:31] LABS: Vitamin D, 25 Hydrox 29.4 ng/ml (30-100)
[2021-11-20] MEDS ORDERED: PHENYLEPHRINE HCL 10 MG/ML VIAL ONE (12:33)
[2021-11-20] MEDS ORDERED: ePHEDrine sulfate 50 MG/ML AMP ONE (12:33)
[2021-11-20] MEDS ORDERED: SODIUM CHLORIDE 0.9% INJ 10 ML VIAL ONE (12:36)
[2021-11-20] MEDS ORDERED: EPINEPHrine INJ 1 MG/ML AMP ONE (12:44)
[2021-11-20] MEDS ORDERED: BUPIVACAINE 0.5 % 5 MG/1 ML MPF 30ML VIAL ONE (12:45)
[2021-11-20] MEDS: NYSTATIN SUSP 500,000 U/5 ML UDC PO SCH ×3 (12:50→20:12)
--- NOTE | 2021-11-20 12:52 | Anesthesiology Consultation ---
Date of Service November 20, 2021 Assessment & Plan Chart Review Chart Review: Acceptable Risk for Surgery Consults Requested none History Surgery Operation Date: 11/20/21 13:00 Proposed Procedures p Left Short Itramedullary Nail Hip - Sunny Saleh MD Height/Weight Height: 5 ft 8 in Weight: 74.4 kg Allergies Allergy/AdvReac Type Severity Reaction Status Date / Time caffeine Allergy Intermediate Throat Verified 11/18/21 22:12 swelling, hives, redness nitrofurantoin Allergy Unknown Unknown Verified 11/18/21 22:12 Medications Home Medications Medication Instructions Recorded Confirmed Last Taken docusate sodium 100 mg capsule 100 mg PO QPM 04/22/18 11/18/21 11/18/21 (Colace) melatonin 3 mg tablet 3 mg PO HS 04/22/18 11/18/21 11/18/21 vit C 250 mg-vit E 90 mg-zinc 40 1 cap PO BID 06/12/20 11/18/21 11/18/21 mg-copper 1 [id number] capsule (PreserVision AREDS-2) cholecalciferol (vitamin D3) 25 25 mcg PO DAILY 02/15/21 11/18/21 11/18/21 mcg (1,000 unit) tablet (Vitamin D3) finasteride 5 mg tablet 5 mg PO QPM #90 tabs 06/11/21 11/18/21 11/18/21 losartan 50 mg tablet 50 mg PO DAILY #90 tabs 09/04/21 11/18/21 11/18/21 methenamine hippurate 1 gram tablet 1 g PO DAILY #90 tabs 09/17/21 11/18/21 11/18/21 tramadol 50 mg tablet 50 mg PO TID 11/18/21 11/18/21 11/18/21 Active Medications Generic Name Dose Route Start Last Admin Trade Name Freq PRN Reason Stop Dose Admin Cyanocobalamin 1,000 mcg 11/20/21 09:15 11/20/21 10:26 Cyanocobalamin 1000 Mcg/Ml Vial IM 11/24/21 09:01 1,000 mcg QAM VIKRAM Administration Docusate Sodium 100 mg 11/19/21 21:00 11/19/21 21:19 Docusate Sodium 100 Mg Cap PO 12/19/21 20:59 100 mg QPM VIKRAM Administration Finasteride 5 mg 11/19/21 21:00 11/19/21 21:22 Finasteride 5 Mg Tab PO 12/19/21 20:59 Not Given QPM VIKRAM Dextrose/Lactated Ringer's 1,000 mls @ 80 mls/hr 11/18/21 22:45 11/20/21 12:49 D5w And Lactated Ringers IV 12/18/21 22:44 Infused .[id number] VIKRAM Infusion Melatonin 4.5 mg 11/19/21 21:00 11/19/21 21:18 Melatonin 3 Mg Tab PO 12/19/21 20:59 4.5 mg HS VIKRAM Administration Morphine Sulfate 3 mg 11/18/21 22:15 11/19/21 14:47 Morphine Sulfate 4 Mg/Ml 1 Ml Carp\Vial IV 12/02/21 22:14 3 mg Q3H PRN Administration Pain Nystatin 5 ml 11/20/21 13:00 11/20/21 12:50 Nystatin Susp 500,000 U/5 Ml Udc PO 11/30/21 12:59 Not Given QID VIKRAM Senna/Docusate Sodium 2 tab 11/19/21 21:00 11/19/21 21:19 Docusate Sodium/Senna 50/8.6mg Tab PO 12/19/21 20:59 2 tab HS VIKRAM Administration NPO Date Last Intake of Fluids: 11/19/21 Time Last Intake of Fluids: 19:00 Date Last Intake of Solids: 11/19/21 Time Last Intake of Solids: 19:00 Past Medical History Medical History (Updated 11/20/21 @ 11:16 by Porfirio Kincaid) Anemia Aortic stenosis, moderate Moderate aortic stenosis (SAHRA 1.1cm2, MG 22.8mmhg) per 05/05/18 Arthritis Benign prostatic hyperplasia with urinary obstruction Bifascicular block Chronic, dating back to at least 2017 Chronic kidney disease, stage 3 (moderate) Gout Hyperlipidemia Hypertension Insomnia Macular degeneration Pancreatic lesion 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 Secondary hyperparathyroidism Symptomatic cholelithiasis Varicose veins of both legs with edema Past Family History Family History Mother Hypertension Denies family history of Ovarian cancer Prostate cancer Myocardial infarction Breast cancer Lung cancer Colorectal cancer Past Surgical History Surgical History History of bladder surgery TURBT (05/12/18): LMA#5 iGel at [facility] History of carpal tunnel release R/L History of colonoscopy History of hemorrhoidectomy History of lumbar fusion Lumbar History of partial thyroidectomy Goiter excision History of tooth extraction S/P ureteral stent placement Status post insertion of spinal cord stimulator 19+ years ago > no longer functioning but patient states he was advised not to remote unless it gives him issues Social History Smoking Status: Former smoker Hx Alcohol Use: No Hx Substance Use: No substance use type: does not use Physical Exam Vital Signs Last Vital Signs Temp 36.8 C 11/20/21 12:36 Pulse 108 H 11/20/21 12:36 Resp 22 11/20/21 12:36 BP 153/90 H 11/20/21 12:36 Pulse Ox 93 11/20/21 12:36 O2 Del Method 11/20/21 12:36 O2 Flow Rate 2 11/20/21 07:55 Testing Laboratory Results 11/20/21 06:24 11/20/21 06:24 PT 11.3 Seconds (9.0-12.0) 11/18/21 20:28 INR 1.1 (0.9-1.1) 11/18/21 20:28 APTT 25.7 Seconds (21.0-31.0) 11/18/21 20:28 Blood Type O Positive 11/19/21 06:03 Antibody Screen NEGATIVE 11/19/21 06:03
[2021-11-20] MEDS ORDERED: ONDANSETRON INJ 2 MG/ML 2 ML VIAL IV PRN (12:55)
[2021-11-20] MEDS ORDERED: HYDROmorphone INJ 2 MG/ML SYR/VIAL IV PRN (12:55)
[2021-11-20] MEDS ORDERED: fentaNYL citrate 100 MCG/2 ML VIAL IV PRN (12:55)
[2021-11-20] MEDS ORDERED: PROMETHAZINE HCL 12.5 MG in SODIUM CHLORIDE 0.9% 50 ML IV PRN (12:55)
[2021-11-20] MEDS ORDERED: ePHEDrine sulfate 50 MG/ML AMP IV PRN (12:55)
[2021-11-20] MEDS ORDERED: ATROPINE SULFATE 0.1 MG/ML 10ML SYR IV PRN (12:55)
--- NOTE | 2021-11-20 13:15 | History & Physical Bridge Note ---
Date of Service November 20, 2021 History & Physical Bridge Note I have examined the patient, reviewed the History & Physical and in the interval since the performance of the History & Physical I have noted the following changes of clinical significance: no changes noted. I have evaluated the patient at the bedside. Discussed the dx of intertrochanteric hip fracture with patient and his . Agree with plan for Closed or Open Reduction and Internal Fixation. Discussed the risks and benefits in detail, and the informed consent was obtained with present. All agreeable to proceed.
[2021-11-20] MEDS ORDERED: ceFAZolin 330 MG/ML 1 GM VIAL ONE (13:20)
[2021-11-20] MEDS: TRANEXAMIC ACID / 0.7% NACL 1,000 MG/100 ML BAG IV SCH ×2 (13:22→16:05)
--- NOTE | 2021-11-20 15:00 | Post Operative Brief Note ---
PG Immediate Post Op with CF Date of Surgery November 20, 2021 Pre & Post Diagnosis Operation Date: 11/20/21 13:00 Pre-Op Diagnosis: Left intertrochanteric hip fracture. Post-Op Diagnosis: Left intertrochanteric hip fracture. I identified the patient and participated in the time-out.: Yes Procedure Operation Date: 11/20/21 13:00 Actual Procedures p Left Short Intramedullary Nail Hip(Left) - Sunny Saleh MD Surgeon Sunny Saleh MD Concrete Mixer Operator Helper Ashkan Lucero PA-C Estimated Blood Loss 100 Findings Consistent with Post-Op Diagnosis Drains Hess Catheter
--- NOTE | 2021-11-20 15:28 | Fluoroscopy Report ---
FL hip LT 2-3V CLINICAL HISTORY: LEFT SHORT INTRAMEDULARY NAIL HIP COMPARISON STUDY: Left hip radiographs and CT of the left hip November 18, 2021. FLUOROSCOPY TIME: 1 minute and 22 seconds. FLUOROSCOPIC IMAGES: 4 FINDINGS: Fluoroscopy was provided during internal fixation of the intertrochanteric fracture of the left hip with intramedullary kole and nail. Alignment appears anatomic. There are no unexpected radiop aque foreign bodies. IMPRESSION: Fluoroscopy provided during internal fixation of the intertrochanteric fracture of the l eft femur. ACT 112: Negative or not required by law. Electronically signed by: Popeye Salguero M.D. 11/20/2021 3:26 PM
--- NOTE | 2021-11-20 15:28 | Operative Report ---
PG Post Operative Report Pre & Post Diagnosis Operation Date: 11/20/21 13:00 Pre-Op Diagnosis: Left intertrochanteric hip fracture. Post-Op Diagnosis: Left intertrochanteric hip fracture. I identified the patient and participated in the time-out.: Yes Procedure Operation Date: 11/20/21 13:00 Actual Procedures p Left Short Intramedullary Nail Hip(Left) - Sunny Saleh MD Surgeon Sunny Saleh MD Passenger Car Cleaning Supervisor Ashkan Lucero PA-C Estimated Blood Loss 100 Findings Consistent with Post-Op Diagnosis Stable intertrochanteric pattern, easily reduced with gentle longitudinal traction and and internal rotation. All Synthes implants: 11 mm/130 degree titanium cannulated trochanteric fixation nail of 170 (short) mm length. 11.0 mm titanium helical blade of 100 mm length. 5 mm distal interlock screw measuring 40 mm. Specimens none Anesthesia Type MAC Spinal Regional Complications none Disposition Accompanied Patient To Recovery: No Disposition: Surgical ICU Indications 89-year-old male sustained a fall resulting in left hip pain and an inability to weight-bear. He was brought to the emergency room where he was diagnosed with a hip fracture. He is admitted to medicine. There were concerns about troponin elevation, so his cardiology team was consulted. Once cleared for surgery, we recommended surgical fixation of the hip to return to ambulation expeditiously. We discussed the risks and benefits of surgery in detail with the patient and his . He was consulted on by Dr. Castillo and referred to me for timely surgery today. Reviewed the risks and benefits of surgery myself with the patient and his , and informed consent was obtained in the preoperative holding area. Description of Procedure On the day of surgery should be was greeted in the preoperative holding area and the informed consent was reviewed and confirmed. The surgical site was then identified by the patient and signed by myself. The patient was taken to the operating placed by the OR table and anesthesia was induced. The patient is then positioned on the fracture table. All jules prominences were well padded. The operative foot was placed in the fracture boot with abundant padding. The well leg was secured. We then positioned the lower extremities in a scissor fashion with a non-op leg flexed down to allow visualization with fluoroscopy which was confirmed before we prepped and draped. Surgical timeout was called and verified by all present. Antibiotics were infused, and equipment was available and functional. The procedure was initiated with a closed reduction maneuvers. Gentle in-line traction pulled the fracture out to length. The limb was then internally rotated to reduce the proximal femur. Flexion and adduction were used to adjust the reduction and allow access to the greater trochanter. We had adequate reduction prior to prepping and draping. The leg was then prepped and draped in usual sterile fashion. Surgical timeout was reconfirmed. We initiated the surgical internal fixation portion with finding the start point with the tip of the greater trochanter. Fluoroscopic guidance was used and a small poke hole was established. The start point was confirmed on fluoroscopy in AP and lateral planes and the pin was advanced using a mallet. An incision was made about the pin to allow access for the reamers. The pin was then advanced past the lesser trochanter, and its position was confirmed using AP and lateral fluoroscopy. Using the protective sleeve, the opening reamer was advanced under power with fluoroscopic guidance over the guidepin. It was advanced slowly. Given the stable pattern, I elected to perform a short cephalomedullary nail construct. Given preoperative measurements, the 11 mm nail was adequate. An 11 mm short nail was loaded onto the jig and advanced manually down the canal, while ensuring maintenance of the reduction on fluoroscopy. We then tapped it down into place until we achieve the good position for our cephalo-medullary screw. The cannula was placed on the jig to allow positioning of the cephalo-medullary screw. The skin incision was made in the appropriate spot. The jig cannulas were then placed against the lateral cortex. The cephalo-medullary screw guidepin was advanced towards the femoral head. The center-center position was confirmed on fluoroscopy in AP and lateral planes. The length of the screw was measured off the guide. The helical blade screw was then opened on the back table and prepared on the screwdriver. The lateral cortical opening drill, followed by the triple drill reamer for the helical blade was advanced under fluoroscopic guidance. The helical blade was advanced over the guidepin to appropriate position. The helical blade was locked in rotation and then the traction was taken off. Fluoroscopy confirmed maintenance of reduction and adequate position of the implant. The compression sleeve was then advanced against the lateral femur to improve the trochanteric-shaft reduction and compress the intertrochanteric region fracture. The jig was used for the distal interlock screw. The cannulas were advanced against skin to kenney incision location. The incision was made and the cannulas advanced against bone. The Synthes drill bit was then advanced in the cannulas for bicortical drilling under flouroscopy. Length was measured using the drill bit. The final 5mm interlock screw was placed and position confirmed with fluoroscopy. This completed the fixation of the fracture. Fluoroscopy was used in both AP and lateral planes to evaluate the entirety of the fracture and implant. Reduction and implant positions were acceptable. The wounds were then thoroughly irrigated with bulb syringe and normal saline. The deep fascial layer was approximated with 0 Vicryl suture. The dermal layer was approximated using 2-0 Vicryl suture. The final skin closure was completed with nay. Wounds were dressed with sterile Xeroform, sterile gauze, and Tegaderm over ABDs. The patient tolerated procedure well, awoke from anesthesia without complication, was extubated in the operating room, and transferred to the PACU in stable condition. Disposition: The patient be weightbearing as tolerated. I recommended routine DVT prophylaxis consisting of Xarelto after reading the cardiology consultation. DVT prophylaxis should last 6 weeks. 24 hours of antibiotic prophylaxis should be continued. Physician medical records assistant attestation: Ashkan Lucero PA-C was present and scrubbed for the duration of the case. He was essential to prepping/draping, patient positioning, retraction, and assistance with wound closure. In particular, skilled medical records assistant was necessary for positioning the patient on the fracture bed and obtaining appropriate reduction maneuvers. I attest to the content of the Intraoperative Record and any orders documented therein. Any exceptions are noted below.
--- NOTE | 2021-11-20 15:34 | XRay Report ---
XR hip LT min 2V CLINICAL HISTORY: Post-Operative implant position COMPARISON STUDY: Left hip 11/18/2021. FINDINGS: Status post internal fixation of the left femoral intertrochanteric fracture with a proxima l femoral intramedullary kole and interlocking femoral neck pin. The hardware appears intact. Alignmen t is near-anatomic. Skin nay are in place. IMPRESSION: Status post internal fixation of the left femoral intertrochanteric fracture. The hardwa re appears intact. ACT 112: Negative or not required by law. Electronically signed by: Cristofer Luna M.D. 11/20/2021 3:32 PM
[2021-11-20] MEDS ORDERED: oxyCODONE HCL IR 5 MG TAB (IMMEDIATE RELEASE) PO PRN (15:58)
--- NOTE | 2021-11-20 15:58 | Anesthesiology Progress Note ---
Date of Service November 20, 2021 Anesthesia Post Procedure Vital Signs Vital Signs: Temp Pulse Pulse Resp BP BP Pulse Ox 11/20/21 15:40 80 16 128/80 94 11/20/21 15:25 36.6 C 81 16 132/80 94 11/20/21 15:15 87 18 133/86 94 11/20/21 15:05 36.5 C 88 20 123/69 96 11/20/21 12:36 36.8 C 108 H 22 153/90 H 93 11/20/21 12:28 92 11/20/21 07:55 11/20/21 07:33 36.8 C 93 H 16 149/79 H 94 11/20/21 03:24 36.7 C 86 18 139/79 94 11/19/21 23:43 36.6 C 88 14 150/79 H 93 11/19/21 19:35 11/19/21 20:06 36.5 C 89 16 148/79 H 94 11/19/21 16:09 36.6 C 79 16 124/71 94 O2 Del Method O2 Flow Rate 11/20/21 15:40 Nasal Cannula 3 11/20/21 15:25 Nasal Cannula 3 11/20/21 15:15 Nasal Cannula 3 11/20/21 15:05 Oxymask 5 11/20/21 12:36 Room Air 11/20/21 12:28 Room Air 11/20/21 07:55 Nasal Cannula 2 11/20/21 07:33 11/20/21 03:24 Nasal Cannula 2 11/19/21 23:43 Nasal Cannula 2 11/19/21 19:35 Nasal Cannula 2 11/19/21 20:06 Nasal Cannula 2 11/19/21 16:09 Nasal Cannula 2 Pain Intensity Left Hip: Pain Intensity: 0 Transfer of Care Handoff Completed per policy Notes Mental Status: alert / awake / arousable and participated in evaluation Patient Amnestic to Procedure: Yes Nausea / Vomiting: adequately controlled Pain: adequately controlled Airway Patency, RR, SpO2: stable & adequate BP & HR: stable & adequate Hydration State: stable & adequate Anesthetic Complications: no major complications apparent
[2021-11-20] MEDS: ceFAZolin 2000MG 2,000 MG/15 ML SYR IV SCH (20:12)
[2021-11-20] MEDS: FINASTERIDE 5 MG TAB PO SCH (20:13)
[2021-11-20] MEDS: DOCUSATE SODIUM/SENNA 50/8.6MG TAB PO SCH (20:13)
[2021-11-20] MEDS: MELATONIN 3 MG TAB PO SCH (20:13)
[2021-11-20] MEDS: DOCUSATE SODIUM 100 MG CAP PO SCH (20:13)
[2021-11-21] MEDS: D5W AND LACTATED RINGERS 1,000 ML IV SCH ×2 (02:41→05:44)
[2021-11-21] MEDS: ceFAZolin 2000MG 2,000 MG/15 ML SYR IV SCH (05:49)
[2021-11-21 06:05] LABS: Hematocrit (blood only) 28.2 % (40.1-51.0); Hemoglobin 9.6 g/dl (14.0-18.0); Mean Corpuscular Hemoglobin 32.2 pg (25.0-34.0); Mean Corpuscular Volume 94.6 fL (80.0-100.0); Mean Platelet Volume 10.2 fL (9.4-12.4); Platelet Count 114 K/uL (130-400); RDW Standard Deviation 41.3 fL (36.4-46.3); Red Blood Count 2.98 M/uL (4.63-6.08); White Blood Count 8.55 K/ul (4.8-10.8)
[2021-11-21 06:38] LABS: BUN Creatinine Ratio 14.7 (10-20); Calcium 8.2 mg/dl (8.5-10.1); Creatinine Clr Calc Pharmacy 35.6 ml/min; Est GFR (African American) 53.1 ml/min; Est GFR (Non-African American) 45.8 ml/min; Potassium 4.4 mmol/L (3.5-5.1)
[2021-11-21] MEDS: traMADol HCL 50 MG TABLET PO PRN ×2 (08:44→22:24)
[2021-11-21] MEDS: ursodioL 300 MG CAP PO SCH ×2 (08:46→19:54)
[2021-11-21] MEDS: NYSTATIN SUSP 500,000 U/5 ML UDC PO SCH ×4 (08:47→19:55)
[2021-11-21] MEDS: CYANOCOBALAMIN 1000 MCG/ML VIAL IM SCH (08:48)
--- NOTE | 2021-11-21 08:55 | Orthopedic Progress Note ---
Date of Service November 21, 2021 Assessment & Plan (1) Closed intertrochanteric fracture of left hip: S/p Left Short IM Nail Hip (DOS 11/20/2021; Dr. Saleh) -Doing well on POD 1 -Pain control w/ prn tylenol, tramadol; low dose oxycodone for breathrough pain -DVT PPx with Xarelto, start today. Will need for 6 weeks -PT/OT ordered; WBAT LLE -Keep dressing in place, reinforce prn. -Post op Abx ordered -Rest of care per primary team Dispo: Remain inpatient. Needs PT/OT evaluation. Anticipate inpatient rehab. Will follow along Discussed w/ Dr. Saleh Subjective Doing well today. No hip pain at rest. Denies chest pain, SOB, dizziness/lightheadedness, n/v. Review of Systems All systems reviewed & are unremarkable except as noted in HPI & below. Physical Exam General: Pleasant 89 y/o/m resting in bed comfortably in NAD. AAO x 4 LLE: Dressings are C/D/I. Minimal incisional tenderness. No surrounding hematoma. Leg lengths equal. Distally N/V/I. Results & Data Results & Data Laboratory Results Reviewed- Troponin continues to trend upward. Expected Hgb drop after surgery. Diagnostic Findings Post op XRs reviewed and stable . PG Care Time/CCT Total # of Minutes Spent Total Time Spent with Patient: Total time spent is greater than 50% in coordination of care (as documented) at patient's floor/unit and/or counseling patient: Coding Level of Care Code 55431 Post Operative Follow-Up Diagnoses Closed intertrochanteric fracture of left hip S72.142A Encounter type: initial encounter Fracture alignment: displaced (1) Closed intertrochanteric fracture of left hip Encounter type: initial encounter Fracture alignment: displaced Qualified Code(s): S72.142A - Displaced intertrochanteric fracture of left femur, initial encounter for closed fracture
[2021-11-21] MEDS ORDERED: RIVAROXABAN 10 MG TABLET PO SCH (09:00)
[2021-11-21] MEDS: CHOLECALCIFEROL 1,000 UNITS 25 MCG TAB PO SCH (12:18)
[2021-11-21] MEDS: POLYETHYLENE (MIRALAX) 17 GM PACK PO SCH ×2 (12:19→19:55)
--- NOTE | 2021-11-21 12:32 | Cardiology Progress Note ---
Date of Service November 21, 2021 Assessment & Plan (1) Aortic stenosis: Plan: -echocardiogram notes severe aortic stenosis. -fortunately, he remains asymptomatic. -orthopedic surgery tolerated without event. (2) Hypertension: Plan: -losartan and finasteride currently on hold. -restart as blood pressure dictates. (3) Bifascicular block: Plan: -chronic finding since 2017. (4) Elevated troponin: Plan: -minor elevation likely related to his left ventricular hypertrophy. -he has not experienced any chest discomfort or dyspnea. Admission and Anticipated Discharge Date Admission Date: November 18, 2021 Subjective The patient is resting comfortably in bed without complaints of chest pain or dyspnea. He tolerated surgical procedure yesterday without difficulty. His is at the bedside. Physical Exam Physical Exam: In general is a we ll-developed well- nourished white ma le in no acute dis tress. HEENT exam is negative. Nec k is supple with d elayed and prolong ed carotid upstrok es. A transmitted murmur is noted b ilaterally. Cardi ovascular exam rev eals a 3/6 crescen do decrescendo sys tolic murmur heard loudest at the ba se. S2 is not aud ible at the apex. Lungs are clear w ithout rales, rhon chi, or wheezes. Abdomen is soft wi thout bruits. Ext remities reveal in tact radial artery pulses bilaterall y. There is no pe ripheral edema. Results & Data ([facility]) Vital Signs (Past 12 Hours) Vital Signs Temp Pulse Resp BP BP Pulse Ox Pulse Ox 11/21/21 11:23 36.6 C 94 H 18 115/71 93 11/21/21 11:12 11/21/21 07:20 11/21/21 08:16 36.6 C 93 H 18 145/75 H 92 11/21/21 04:00 94 11/21/21 03:35 36.4 C L 99 H 16 166/83 H 92 Pulse Ox Pulse Ox Pulse Ox O2 Del Method O2 Del Method O2 Flow Rate O2 Flow Rate 11/21/21 11:23 Room Air 11/21/21 11:12 95 92 87 L 11/21/21 07:20 Nasal Cannula 2 11/21/21 08:16 Nasal Cannula 2 11/21/21 04:00 Nasal Cannula 2 11/21/21 03:35 Nasal Cannula O2 Flow Rate O2 Flow Rate O2 Flow Rate 11/21/21 11:23 11/21/21 11:12 2 2 2 11/21/21 07:20 11/21/21 08:16 11/21/21 04:00 11/21/21 03:35 PG Care Time/CCT Total # of Minutes Spent Total Time Spent with Patient: Total time spent is greater than 50% in coordination of care (as documented) at patient's floor/unit and/or counseling patient: Coding Level of Care Code 43774 Subseq Hosp Care Lvl 3 Diagnoses Aortic stenosis I35.0 Hypertension I10 Bifascicular block I45.2 Elevated troponin R77.8
[2021-11-21] MEDS: MELATONIN 3 MG TAB PO SCH (19:53)
[2021-11-21] MEDS: DOCUSATE SODIUM/SENNA 50/8.6MG TAB PO SCH (19:54)
[2021-11-21] MEDS: DOCUSATE SODIUM 100 MG CAP PO SCH (19:54)
[2021-11-21] MEDS: FINASTERIDE 5 MG TAB PO SCH (19:54)
--- NOTE | 2021-11-21 22:21 | Hospitalist Progress Note ---
Date of Service November 21, 2021 Assessment & Plan (1) Closed intertrochanteric fracture of left hip: Plan: POD #1 s/p ORIF by Dr Sunny Saleh. DVT proph - low-dose xarelto 10mg daily. 25-OH vit D level about 30. PT, OT when able. Weight-bearing to LLE as tolerated as ordered by orthopedics. Overall pain control is very satisfactory today. (2) Demand ischemia of myocardium: Plan: Patient has been asymptomatic without chest pain or shortness of breath since admission. ECG without ischemic changes. Has chronic bifascicular block. Echocardiogram shows severe aortic stenosis and moderate LVH, no wall motion abnormalities, preserved EF. Thus, troponin elevation was 2nd to myocardial demand ischemia in setting of #1. (3) Elevated troponin: Plan: see above in #2 (4) Aortic stenosis: Plan: No symptoms from the at this time Stop IV fluids (5) Symptomatic cholelithiasis: Plan: Patient with several months of symptomatic cholelithiasis which is only improved slightly with following a low-fat diet. He is interested in nonsurgical options. Start ursodiol 300 mg p.o. twice daily in addition to low-fat diet. Recommend follow-up with GI as an outpatient. He has been referred to general surgery but given his severe aortic stenosis, doubtful that he would undergo an elective cholecystectomy and he doesn't seem interested in that option either. (6) Hypertension: Plan: Cont to hold losartan (7) Anemia: Plan: Acute blood loss anemia from hip fracture itself. Repeat CBC in am for stability. 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 [place] [facility] [place] [facility] [place], Dr Rodriguez. Previously on BCG therapy. Scheduled for immune therapy in the near future along with radiation of the right 8th rib met (causes pain for him). Prior attending hospitalist notified Dr. Salvador about his admission. She stated should would ask her staff to bring him consent forms to fill out for his future chemotherapy. (9) B12 deficiency: Plan: B12 was low in 11/2020 B12 this admission continues to be low at 130 Start B12 injections 1000mcg daily x 5 days then PO supplementation thereafter Folate level 17 (10) Benign prostatic hyperplasia with urinary obstruction: Plan: Continue home finasteride Had cifuentes placed at admission Removed per protocol today Following removal now with hematuria Hematuria could be from prostatic inflammation, the bladder wall itself (known h/o bladder ca), the left kidney (known kidney ca on that side), etc. If hematuria persists he could easily develop urinary retention and would need cifuentes placed back Check bladder scans qshift Low threshold for [facility] urology consult if hematuria persists, worsens, etc Consider flomax therapy as well (11) Chronic kidney disease, stage 3 (moderate): Plan: Creatinine remains stable Repeat BMP in am CrCl at baseline is 30s c/w stage 3b (12) Pancreatic lesion: Plan: He reports this has been stable for several years no Rx needed at this time (13) Thrombocytopenia: Plan: likely consumptive from his L hip fracture. also the B12 def is likely contributing. CBC daily. replace low B12. (14) Gross hematuria: Plan: see #10 above he has had gross hematuria in the past as well (15) Altered mental status: Plan: likely toxic from tramadol can't rule out recent anesthesia contributing can't rule out hospital delirium b12 deficiency will lend itself to confusion as well supportive care for now defer on antipsychotics for now (16) Candidiasis of mouth and esophagus: Plan: improved cont nystatin solution Plan DVT prophylaxis - Xarelto cautiously in light of #14 extensively updated at bedside Admission and Anticipated Discharge Date Admission Date: November 18, 2021 Subjective patient a bit confused during the visit he reports visual hallucinations and distortions these are chronic for him - attributed to macular degeneration - but have been more frequent in the hospital was at bedside and she was extensively updated no bowel movement yet eating fair left hip pain minimal & controlled pt's counseled that her is likely to need rehab finally, later in the day I received a call that following the removal of the patient's cifuentes catheter he had gross hematuria while cifuentes was in the urine had been clear/free of blood I instructed staff to watch carefully for urinary retention given the new onset hematuria; bladder scans qshift advised he may need cifuentes placed back Review of Systems Review of Systems: gen - no fevers cv - no cp, no orthopnea pulm - no dyspnea GI - no pain Physical Exam Physical Exam: gen - NAD, pleasant, a little confused mouth - MMM; previous thrush plaques buccal mucosa improved neck - no JVD heart - RRR, s1 s2, 2/6 holosystolic murmur RUSB/apex lungs - CTA b/l abd - soft NT ND BS+; no HSM ext - left thigh edema present, dressings intact left lateral hip vasc - pulses feet 2+ b/l, no edema psych - oriented to person/place; mild confusion Results & Data Results & Data ([facility]) Vital Signs (Past 12 Hours) Vital Signs Temp Pulse Resp BP BP Pulse Ox Pulse Ox 11/21/21 22:13 36.6 C 103 H 20 157/74 H 91 11/21/21 14:40 36.1 C L 86 18 135/75 95 11/21/21 11:23 36.6 C 94 H 18 115/71 93 11/21/21 11:12 95 Pulse Ox Pulse Ox O2 Del Method O2 Flow Rate O2 Flow Rate O2 Flow Rate O2 Flow Rate 11/21/21 22:13 Nasal Cannula 2 11/21/21 14:40 Nasal Cannula 2 11/21/21 11:23 Nasal Cannula 2 11/21/21 11:12 92 87 L 2 2 2 Laboratory Results Laboratory Results - last 24 hr 11/21/21 11/21/21 11/21/21 05:45 05:45 05:45 WBC 8.55 RBC 2.98 L Hgb 9.6 L Hct 28.2 L MCV 94.6 MCH 32.2 MCHC 34.0 RDW Std Deviation 41.3 RDW Coeff of Jazmyne 12.0 Plt Count 114 L MPV 10.2 Sodium 137 Potassium 4.4 Chloride 105 Carbon Dioxide 27 Anion Gap 5 BUN 20 Creatinine 1.36 Est Cr Clr Drug Dosing 35.6 Est GFR ( Amer) 53.1 Est GFR (Non-Af Amer) 45.8 BUN/Creatinine Ratio 14.7 Glucose 126 H Calcium 8.2 L 25-OH Vitamin D Total 30.2 PG Care Time/CCT Total # of Minutes Spent Total Time Spent with Patient: Total time spent is greater than 50% in coordination of care (as documented) at patient's floor/unit and/or counseling patient: Coding Level of Care Code 29315 Subseq Hosp Care Lvl 3 Diagnoses Closed intertrochanteric fracture of left hip S72.142A Encounter type: initial encounter Fracture alignment: displaced Demand ischemia of myocardium I24.8 Elevated troponin R77.8 Aortic stenosis I35.0 Symptomatic cholelithiasis K80.20 Hypertension I10 Anemia D64.9 Transitional cell carcinoma of left kidney C64.2 B12 deficiency E53.8 Benign prostatic hyperplasia with urinary obstruction N40.1; N13.8 Chronic kidney disease, stage 3 (moderate) N18.3 Pancreatic lesion K86.9 Thrombocytopenia D69.6 Gross hematuria R31.0 Altered mental status R41.82 Candidiasis of mouth and esophagus B37.81; B37.0 (1) Closed intertrochanteric fracture of left hip Encounter type: initial encounter Fracture alignment: displaced Qualified Code(s): S72.142A - Displaced intertrochanteric fracture of left femur, initial encounter for closed fracture
[2021-11-21 23:05] LABS: Appearance Urine Turbid (Clear); Bilirubin Urine 1+ (Negative); Blood Urine 3+ (Negative); Color Urine Red; Glucose Urine UA Negative (Negative); Ketones Urine Trace (Negative); Leukocyte Esterase Urine Negative (Negative); Nitrite Urine Negative (Negative); Protein Urine 3+ (Negative); Urobilinogen Urine Negative (Negative)
[2021-11-21 23:07] LABS: Basophils # (auto) 0.02 K/uL (0-0.2); Basophils % (auto) 0.3 %; Eosinophils # (auto) 0.22 K/uL (0-0.50); Eosinophils % (auto) 2.9 %; Hematocrit (blood only) 26.4 % (40.1-51.0); Hemoglobin 9.2 g/dl (14.0-18.0); Immature Granulocytes # (auto) 0.07 K/uL (0.00-0.02); Immature Granulocytes % (auto) 0.9 %; Lymphocytes % (auto) 6.6 %; Mean Corpuscular Hgb Conc 34.8 g/dL (32.0-36.0); Mean Corpuscular Volume 94.6 fL (80.0-100.0); Mean Platelet Volume 10.7 fL (9.4-12.4); Monocytes # (auto) 0.83 K/uL (0.24-0.82); Neutrophils # (auto) 5.91 K/uL (1.4-6.5); Neutrophils % (auto) 78.3 %; Platelet Count 120 K/uL (130-400); RDW Coefficient of Variation 12.2 % (11.5-14.5); RDW Standard Deviation 42.5 fL (36.4-46.3); Red Blood Count 2.79 M/uL (4.63-6.08); White Blood Count 7.55 K/ul (4.8-10.8)
[2021-11-21 23:08] LABS: Bacteria Urine Negative (Negative); RBC Urine >30 /hpf (0-4); WBC Urine >30 /hpf (0-5)
[2021-11-22 07:26] LABS: Hematocrit (blood only) 28.6 % (40.1-51.0); Hemoglobin 9.8 g/dl (14.0-18.0); Mean Corpuscular Hemoglobin 32.8 pg (25.0-34.0); Mean Corpuscular Hgb Conc 34.3 g/dL (32.0-36.0); Mean Corpuscular Volume 95.7 fL (80.0-100.0); Mean Platelet Volume 10.6 fL (9.4-12.4); Platelet Count 140 K/uL (130-400); RDW Coefficient of Variation 12.3 % (11.5-14.5); RDW Standard Deviation 42.7 fL (36.4-46.3); Red Blood Count 2.99 M/uL (4.63-6.08); White Blood Count 7.49 K/ul (4.8-10.8)
[2021-11-22 07:51] LABS: BUN Creatinine Ratio 18.4 (10-20); Calcium 8.3 mg/dl (8.5-10.1); Creatinine Clr Calc Pharmacy 34.4 ml/min; Est GFR (African American) 50.8 ml/min; Est GFR (Non-African American) 43.9 ml/min; Potassium 3.9 mmol/L (3.5-5.1)
[2021-11-22] MEDS: NYSTATIN SUSP 500,000 U/5 ML UDC PO SCH ×4 (08:41→20:21)
[2021-11-22] MEDS: CYANOCOBALAMIN 1000 MCG/ML VIAL IM SCH (08:41)
[2021-11-22] MEDS: POLYETHYLENE (MIRALAX) 17 GM PACK PO SCH ×2 (08:41→20:23)
[2021-11-22] MEDS: ursodioL 300 MG CAP PO SCH ×2 (08:41→20:22)
[2021-11-22] MEDS: CHOLECALCIFEROL 1,000 UNITS 25 MCG TAB PO SCH (08:41)
[2021-11-22] MEDS: TAMSULOSIN HCL 0.4 MG CAP PO SCH (08:41)
[2021-11-22] MEDS ORDERED: bisacodyL 5 MG TABEC PO ONE (13:09)
--- NOTE | 2021-11-22 13:42 | XRay Report ---
XR chest 1V portable CLINICAL HISTORY: hypoxic post-op TECHNIQUE: Single frontal radiograph of the chest was obtained. Comparison: Comparison is made to chest radiograph 11/18/[address] chest 09/10/2021 FINDINGS: No lines and tubes are seen. Cardiomegaly is noted. Calcified aortic arch is seen. Prominence and cep halization of the vasculature is seen. Small left pleural effusion. IMPRESSION: 1. Mild pulmonary edema. Stable cardiomegaly. 2. Small left pleural effusion. ACT 112: Negative or not required by law. Electronically signed by: Osorio Andres M.D. 11/22/2021 1:41 PM
[2021-11-22] MEDS ORDERED: FUROSEMIDE 20 MG TAB PO ONE (14:15)
[2021-11-22] MEDS ORDERED: LIDOCAINE 2% JELLY 5 ML TUBE ONE (17:21)
--- NOTE | 2021-11-22 17:23 | Orthopedic Progress Note ---
Date of Service November 22, 2021 Assessment & Plan (1) Closed intertrochanteric fracture of left hip: POD2 s/p Left Hip cephalomedullary nail for fracture (DOS 11/20/2021). Making progress as expected. -Doing well on POD 2 -Pain control w/ prn tylenol, tramadol; low dose oxycodone for breathrough pain -DVT PPx with Xarelto continue for 6 weeks -PT/OT to continue; WBAT LLE -Keep dressing in place until POD3, reinforce prn. Dispo: Remain inpatient for further recovery. Disposition per therapy evaluation. Subjective . Review of Systems All systems reviewed & are unremarkable except as noted in HPI & below. Physical Exam . Results & Data Results & Data Laboratory Results . Diagnostic Findings . PG Care Time/CCT Total # of Minutes Spent Total Time Spent with Patient: Total time spent is greater than 50% in coordination of care (as documented) at patient's floor/unit and/or counseling patient: Coding Level of Care Code 49231 Post Operative Follow-Up Diagnoses Closed intertrochanteric fracture of left hip S72.142A Encounter type: initial encounter Fracture alignment: displaced (1) Closed intertrochanteric fracture of left hip Encounter type: initial encounter Fracture alignment: displaced Qualified Code(s): S72.142A - Displaced intertrochanteric fracture of left femur, initial encounter for closed fracture
--- NOTE | 2021-11-22 19:35 | Hospitalist Progress Note ---
Date of Service November 22, 2021 Assessment & Plan (1) Closed intertrochanteric fracture of left hip: Plan: POD #2 s/p ORIF by Dr Sunny Saleh. DVT proph - low-dose xarelto 10mg daily was initially started but now on hold due to #3 below. 25-OH vit D level about 30. PT, OT when able. Weight-bearing to LLE as tolerated as ordered by orthopedics. Overall pain control remains satisfactory. (2) Acute heart failure with preserved ejection fraction (HFpEF): Plan: 2nd to IV fluids in the setting of severe cxr with pulm edema today lasix 20mg x 1 today likely will need additional in am (3) Gross hematuria: Plan: needed exchange of cifuentes today if hematuria worsens or persists or if he keeps having cifuentes issues will consult [facility] [place] [facility] he has had gross hematuria in the past as well due to his bladder and kidney ca he could be bleeding from either of those issues, or from the prostate, or some other source cbc and bmp in am (4) Demand ischemia of myocardium: Plan: Patient has been asymptomatic without chest pain or shortness of breath since a dmission. ECG without ischemic changes. Has chronic bifascicular block. Echocardiogram shows severe aortic stenosis and moderate LVH, no wall motion abnormalities, preserved EF. Thus, troponin elevation was 2nd to myocardial demand ischemia in setting of #1. (5) Elevated troponin: Plan: see above (6) Aortic stenosis: Plan: mild fluid overload as noted in #2 above diminhe regis (7) Symptomatic cholelithiasis: Plan: Patient with several months of symptomatic cholelithiasis which is only improved slightly with following a low-fat diet. He is interested in nonsurgical options. Start ursodiol 300 mg p.o. twice daily in addition to low-fat diet. Recommend follow-up with GI as an outpatient. He has been referred to general surgery but given his severe aortic stenosis, doubtful that he would undergo an elective cholecystectomy and he doesn't seem interested in that option either. (8) Hypertension: Plan: Cont to hold losartan (9) Anemia: Plan: Acute blood loss anemia from hip fracture itself. Repeat CBC remains stable even with hematuria. 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 Follows with [facility] [place] and [facility] [place] [facility], Dr Rodriguez. Previously on BCG therapy. Now with hematuria as above. Scheduled for immune therapy in the near future along with radiation of the right 8th rib met (causes pain for him). Prior attending hospitalist notified Dr. Salvador about his admission. She stated should would ask her staff to bring him consent forms to fill out for his future chemotherapy. (11) B12 deficiency: Plan: B12 was low in 11/2020 B12 this admission continues to be low at 130 Start B12 injections 1000mcg daily x 5 days then PO supplementation thereafter Folate level 17 (12) Benign prostatic hyperplasia with urinary obstruction: Plan: Continue home finasteride Had cifuentes placed at admission Removed per protocol Following removal now with hematuria Hematuria could be from prostatic inflammation, the bladder wall itself (known h/o bladder ca), the left kidney (known kidney ca on that side), etc. Cifuentes placed back due to retention Flomax added had clots today obstructing his 16Fr catheter - replaced with 22 Fr monitor carefully (13) Chronic kidney disease, stage 3 (moderate): Plan: Creatinine remains stable Repeat BMP in am CrCl at baseline is 30s c/w stage 3b (14) Pancreatic lesion: Plan: He reports this has been stable for several years no Rx needed at this time (15) Thrombocytopenia: Plan: likely consumptive from his L hip fracture. also the B12 def is likely contributing. CBC daily. replace low B12. (16) Altered mental status: Plan: likely toxic from tramadol can't rule out recent anesthesia contributing can't rule out hospital delirium b12 deficiency will lend itself to confusion as well supportive care for now defer on antipsychotics for now (17) Candidiasis of mouth and esophagus: Plan: improved cont nystatin solution Plan DVT prophylaxis - HOLD xarelto; SCDs only and son extensively updated at bedside Admission and Anticipated Discharge Date Admission Date: November 18, 2021 Subjective patient resting comfortably in bed / son at bedside we discussed at length the gross hematuria and likely causes for it patient himself really denies much in the way of complaints no left hip pain no BM yet eating fair a little confused at times while we were discussing his care plan is still for rehab post-d/c later in the day he had issues with his cifuentes; catheter was clogged with clots removed, and 22gu catheter placed by staff without troubles Review of Systems Review of Systems: gen - no fevers cv - no cp pulm - no dyspnea at rest despite O2 requirement GI - no abd pain or nausea Physical Exam Physical Exam: gen - NAD, pleasant confusion mouth - MMM; previous thrush plaques buccal mucosa improved/resolved neck - no JVD heart - irregular (extra beats), regular rate, s1 s2, 2/6 holosystolic murmur RUSB/apex lungs - b/l basilar rales abd - soft NT ND BS+; no HSM ext - left thigh edema present, dressings intact left lateral hip vasc - pulses feet 2+ b/l, no edema psych - oriented to person/place; mild confusion Results & Data Results & Data ([facility]) Vital Signs (Past 12 Hours) Vital Signs Temp Pulse Resp BP Pulse Ox O2 Del Method O2 Flow Rate 11/22/21 14:45 36.5 C 99 H 20 128/76 93 Nasal Cannula 2 11/22/21 07:37 36.6 C 65 22 133/80 96 Nasal Cannula 2 Laboratory Results Laboratory Results - last 24 hr 11/21/21 11/21/21 11/22/21 22:42 22:53 06:50 WBC 7.55 7.49 RBC 2.79 L 2.99 L Hgb 9.2 L 9.8 L Hct 26.4 L 28.6 L MCV 94.6 95.7 MCH 33.0 32.8 MCHC 34.8 34.3 RDW Std Deviation 42.5 42.7 RDW Coeff of Jazmyne 12.2 12.3 Plt Count 120 L 140 MPV 10.7 10.6 Immature Gran % (Auto) 0.9 Neut % (Auto) 78.3 Lymph % (Auto) 6.6 [place] % (Auto) 11.0 Eos % (Auto) 2.9 Baso % (Auto) 0.3 Neut # (Auto) 5.91 Lymph # (Auto) 0.50 L [place] # (Auto) 0.83 H Eos # (Auto) 0.22 Baso # (Auto) 0.02 Immature Gran # (Auto) 0.07 H Sodium Potassium Chloride Carbon Dioxide Anion Gap BUN Creatinine Est Cr Clr Drug Dosing Est GFR ( Amer) Est GFR (Non-Af Amer) BUN/Creatinine Ratio Glucose Calcium Urine Color Red Urine Appearance Turbid A Urine pH 6.0 Ur Specific [place] 1.020 Urine Protein 3+ H Urine Glucose (UA) Negative Urine Ketones Trace H Urine Blood 3+ H Urine Nitrite Negative Urine Bilirubin 1+ H Urine Urobilinogen Negative Ur Leukocyte Esterase Negative Urine RBC >30 H Urine WBC >30 H Ur Epithelial Cells 5-10 H Urine Bacteria Negative 11/22/21 06:50 WBC RBC Hgb Hct MCV MCH MCHC RDW Std Deviation RDW Coeff of Jazmyne Plt Count MPV Immature Gran % (Auto) Neut % (Auto) Lymph % (Auto) [place] % (Auto) Eos % (Auto) Baso % (Auto) Neut # (Auto) Lymph # (Auto) [place] # (Auto) Eos # (Auto) Baso # (Auto) Immature Gran # (Auto) Sodium 137 Potassium 3.9 Chloride 104 Carbon Dioxide 25 Anion Gap 8 BUN 26 H Creatinine 1.41 H Est Cr Clr Drug Dosing 34.4 Est GFR ( Amer) 50.8 Est GFR (Non-Af Amer) 43.9 BUN/Creatinine Ratio 18.4 Glucose 98 Calcium 8.3 L Urine Color Urine Appearance Urine pH Ur Specific [place] Urine Protein Urine Glucose (UA) Urine Ketones Urine Blood Urine Nitrite Urine Bilirubin Urine Urobilinogen Ur Leukocyte Esterase Urine RBC Urine WBC Ur Epithelial Cells Urine Bacteria PG Care Time/CCT Total # of Minutes Spent Total Time Spent with Patient: Total time spent is greater than 50% in coordination of care (as documented) at patient's floor/unit and/or counseling patient: Coding Level of Care Code 11034 Subseq Hosp Care Lvl 3 Diagnoses Closed intertrochanteric fracture of left hip S72.142A Encounter type: initial encounter Fracture alignment: displaced Acute heart failure with preserved ejection fraction (HFpEF) I50.31 Gross hematuria R31.0 Demand ischemia of myocardium I24.8 Elevated troponin R77.8 Aortic stenosis I35.0 Symptomatic cholelithiasis K80.20 Hypertension I10 Anemia D64.9 Transitional cell carcinoma of left kidney C64.2 B12 deficiency E53.8 Benign prostatic hyperplasia with urinary obstruction N40.1; N13.8 Chronic kidney disease, stage 3 (moderate) N18.3 Pancreatic lesion K86.9 Thrombocytopenia D69.6 Altered mental status R41.82 Candidiasis of mouth and esophagus B37.81; B37.0 (1) Closed intertrochanteric fracture of left hip Encounter type: initial encounter Fracture alignment: displaced Qualified Code(s): S72.142A - Displaced intertrochanteric fracture of left femur, initial encounter for closed fracture
[2021-11-22] MEDS: traMADol HCL 50 MG TABLET PO PRN (20:21)
[2021-11-22] MEDS: DOCUSATE SODIUM 100 MG CAP PO SCH (20:22)
[2021-11-22] MEDS: MELATONIN 3 MG TAB PO SCH (20:22)
[2021-11-22] MEDS: FINASTERIDE 5 MG TAB PO SCH (20:22)
[2021-11-22] MEDS: DOCUSATE SODIUM/SENNA 50/8.6MG TAB PO SCH (20:23)
--- NOTE | 2021-11-23 06:11 | Electrocardiogram Report ---
Test Reason : Blood Pressure : / mmHG Vent. Rate : 075 BPM Atrial Rate : 075 BPM P-R Int : 178 ms QRS Dur : 142 ms QT Int : 428 ms P-R-T Axes : 065 -74 -15 degrees QTc Int : 477 ms Sinus rhythm with occasional Premature ventricular complexes and Premature atrial complexes Left axis deviation Right bundle branch block Septal infarct (cited on or before 15-FEB-2021) Abnormal ECG When compared with ECG of 18-NOV-2021 20:33, Premature ventricular complexes are now Present [place] interval has decreased Inverted T waves have replaced nonspecific T wave abnormality in Inferior leads Confirmed by Jose M Stinson [id number]) on 11/23/2021 6:11:14 AM Referred By: REFERRED SELF Confirmed By:Jose M Stinson
[2021-11-23 06:33] LABS: Hematocrit (blood only) 29.3 % (40.1-51.0); Hemoglobin 10.1 g/dl (14.0-18.0); Mean Corpuscular Hemoglobin 32.6 pg (25.0-34.0); Mean Corpuscular Hgb Conc 34.5 g/dL (32.0-36.0); Mean Corpuscular Volume 94.5 fL (80.0-100.0); Mean Platelet Volume 10.3 fL (9.4-12.4); Platelet Count 156 K/uL (130-400); RDW Coefficient of Variation 12.1 % (11.5-14.5); RDW Standard Deviation 42.1 fL (36.4-46.3); White Blood Count 7.98 K/ul (4.8-10.8)
[2021-11-23 07:02] LABS: BUN Creatinine Ratio 24.4 (10-20); Calcium 8.3 mg/dl (8.5-10.1); Creatinine Clr Calc Pharmacy 40.7 ml/min; Est GFR (African American) 62.4 ml/min; Est GFR (Non-African American) 53.8 ml/min
[2021-11-23] MEDS: NYSTATIN SUSP 500,000 U/5 ML UDC PO SCH ×4 (09:39→20:47)
[2021-11-23] MEDS: ursodioL 300 MG CAP PO SCH ×2 (09:39→20:48)
[2021-11-23] MEDS: CHOLECALCIFEROL 1,000 UNITS 25 MCG TAB PO SCH (09:39)
[2021-11-23] MEDS: TAMSULOSIN HCL 0.4 MG CAP PO SCH (09:39)
[2021-11-23] MEDS: CYANOCOBALAMIN 1000 MCG/ML VIAL IM SCH (09:39)
[2021-11-23] MEDS: POLYETHYLENE (MIRALAX) 17 GM PACK PO SCH ×2 (09:39→20:53)
--- NOTE | 2021-11-23 09:59 | Urology Consultation ---
Date of Consultation November 23, 2021 Assessment & Plan (1) Gross hematuria: Plan Gross hematuria with clot obstruction I manually irrigated his clot and was able to irrigate some old clot out of the bladder and then confirmed that the catheter was draining freely. He had instant relief after draining his bladder. Hold Xarelto for another day or 2 but probably okay to start again after that We will follow from a distance but please call if there are major issues History of Present Illness Attending Physician: Porfirio Kincaid History of Present Illness 89-year-old gentleman with a long history of urological malignancies who had previously has followed with our practice but more recently obtained his care in [place] He has an indwelling left ureteral stent and undergoes periodic ureteroscopy and laser destruction of ureteral tumors He also has had a history of lower tract TCC Currently admitted after a hip fracture, placed on anticoagulation and experienced hematuria Catheter exchanged but was not irrigating which prompted the consultation Allergies Allergy/AdvReac Type Severity Reaction Status Date / Time caffeine Allergy Intermediate Throat Verified 11/18/21 22:12 swelling, hives, redness nitrofurantoin Allergy Unknown Unknown Verified 11/18/21 22:12 Home Medications Medication Instructions Recorded Confirmed Type docusate sodium 100 mg capsule 100 mg PO QPM 04/22/18 11/18/21 History (Colace) melatonin 3 mg tablet 3 mg PO HS 04/22/18 11/18/21 History vit C 250 mg-vit E 90 mg-zinc 40 1 cap PO BID 06/12/20 11/18/21 History mg-copper 1 bu-idfoxe-orqzbu capsule (PreserVision AREDS-2) cholecalciferol (vitamin D3) 25 25 mcg PO DAILY 02/15/21 11/18/21 History mcg (1,000 unit) tablet (Vitamin D3) finasteride 5 mg tablet 5 mg PO QPM #90 tabs 06/11/21 11/18/21 Rx losartan 50 mg tablet 50 mg PO DAILY #90 tabs 09/04/21 11/18/21 Rx methenamine hippurate 1 gram tablet 1 g PO DAILY #90 tabs 09/17/21 11/18/21 Rx tramadol 50 mg tablet 50 mg PO TID 11/18/21 11/18/21 History Patient History Medical History Anemia Aortic stenosis, moderate Moderate aortic stenosis (SAHRA 1.1cm2, MG 22.8mmhg) per 05/05/18 Arthritis Benign prostatic hyperplasia with urinary obstruction Bifascicular block Chronic, dating back to at least 2017 Chronic kidney disease, stage 3 (moderate) Gout Hyperlipidemia Hypertension Insomnia Macular degeneration Pancreatic lesion 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 Secondary hyperparathyroidism Symptomatic cholelithiasis Varicose veins of both legs with edema Surgical History History of bladder surgery TURBT (05/12/18): LMA#5 iGel at [facility] History of carpal tunnel release R/L History of colonoscopy History of hemorrhoidectomy History of lumbar fusion Lumbar History of partial thyroidectomy Goiter excision History of tooth extraction S/P ureteral stent placement Status post insertion of spinal cord stimulator 19+ years ago > no longer functioning but patient states he was advised not to remote unless it gives him issues Family History Mother Hypertension Denies family history of Ovarian cancer Prostate cancer Myocardial infarction Breast cancer Lung cancer Colorectal cancer Social History Smoking Status: Former smoker Tobacco Type: Cigarettes Age Quit Using Tobacco: 54; Second Hand Exposure: No; Hx Alcohol Use: No Hx Substance Use: No Preferred Language: Turkish Communication Ability: Effective Visual Impairment: Limited Hearing Ability: Normal Vinyl Cutter Required: No Beliefs That Will Affect Care: None marital status: Current Living Situation: Spouse current occupational status: retired How many Children do You have: 5 Feels Safe at Home: Yes Childhood Exposure to Second-Hand Smoke: No Diet Comment: regular caffeine: No Dental Care, Regularly: Yes Physical Activity Frequency: Daily Seatbelt Use: always Sunscreen Use: No Assistive Devices: Cane Review of Systems Constitutional: no fever, no chills and no fatigue Eyes: no worsening vision Ear, Nose, Mouth, Throat: no facial pain and no pain with swallowing Respiratory: no cough and no dyspnea Cardiovascular: no chest pain and no palpitations Gastrointestinal: no abdominal pain, no nausea and no vomiting Genitourinary: + hematuria Musculoskeletal: no back pain Recent stroke nailsome leg pain but tolerable Integumentary: no rash and no urticaria Neurologic: no gait abnormality and no unsteadiness Psychiatric: no behavioral changes and no depression Endocrine: no fatigue Physical Exam Constitutional: well developed and well nourished Comfortable appearing Neck: neck nontender Respiratory: normal respiratory effort; no respiratory distress and does not use accessory muscles Cardiovascular: Rate/Rhythm: regular rate Vessels: radial pulses present Gastrointestinal (Abdomen): Inspection/Auscultation: abdomen normal to inspection Percussion/Palpation: abdomen soft; abdomen nontender and no guarding Musculoskeletal: Head/Neck/Chest: normocephalic and head atraumatic Extremities: extremities normal to inspection Skin: no rashes and no lesions Trauma: no evidence of skin trauma Neurologic: awake; not obtunded Speech / Cognition: normal speech Motor/Sensory: no tremor Psychiatric: Orientation: alert and oriented x 3 Genitourinary: no CVA tenderness Lymphatic: no lymphadenopathy Results & Data ([facility]) Vital Signs (Past 12 Hours) Vital Signs Temp Pulse Resp BP Pulse Ox Pulse Ox O2 Del Method 11/23/21 06:59 36.5 C 100 H 18 151/89 H 93 Nasal Cannula 11/23/21 04:00 93 O2 Del Method O2 Flow Rate O2 Flow Rate 11/23/21 06:59 1.5 11/23/21 04:00 Nasal Cannula 2 PG Care Time/CCT Total # of Minutes Spent Total Time Spent with Patient: Total time spent is greater than 50% in coordination of care (as documented) at patient's floor/unit and/or counseling patient: Coding Level of Care Code 77164 Inpt Consult Level 3 Diagnoses Gross hematuria R31.0
[2021-11-23] MEDS: traMADol HCL 50 MG TABLET PO PRN (10:21)
[2021-11-23] MEDS ORDERED: POTASSIUM CHLORIDE 10 MEQ TABCR PO STA (10:51)
[2021-11-23] MEDS ORDERED: FUROSEMIDE 20 MG TAB PO ONE (11:00)
--- NOTE | 2021-11-23 18:49 | Orthopedic Progress Note ---
Date of Service November 23, 2021 Assessment & Plan (1) Closed intertrochanteric fracture of left hip: POD3 s/p Left Hip cephalomedullary nail for fracture (DOS 11/20/2021). Making progress as expected. -Cont POC. -DVT PPx - relative risk. Per urology recommendations for now. Consider transitioning to aspirin daily at discharge. Greatest risks within the first 6 weeks. -PT/OT to continue; WBAT LLE -Given his recent bowel urgency and possible diarrhea, I elected to leave the dressing in place as it was clean and dry. Dressing can be changed as needed at this point Dispo: Orthopedic discharge plan will be placed in the discharge instructions. Will need nay removed at 2-3 weeks postoperatively. May contact our clinic after discharge for follow-up. We will need x-rays at 6 weeks postop. DVT prophylaxis per primary team considering urologic precautions. Can consider transition to aspirin for 6 weeks. Call with questions Subjective Seen this morning. He reported comfort in the hip, particularly when he still in bed. He is able to get to his feet with therapy. Pleased with his progress. More concerned about his bladder. Review of Systems All systems reviewed & are unremarkable except as noted in HPI & below. Physical Exam LLE: Dressing remains clean dry and intact with minimal evident drainage. Distally neurovascular intact. Fires his quad well. Constitutional WD/WN, vitals as above no acute distress and not intoxicated appearing Respiratory normal respiratory effort; no labored breathing Cardiovascular Extremities: normal capillary refill Results & Data Results & Data Laboratory Results H & H 11/18/21 11/19/21 11/20/21 Range/Units 20:28 06:03 06:24 Hgb 12.8 L 10.8 L 10.6 L (14.0-18.0) g/dl Hct 37.9 L 32.3 L 31.5 L (40.1-51.0) % 11/21/21 11/21/21 11/22/21 Range/Units 05:45 22:53 06:50 Hgb 9.6 L 9.2 L 9.8 L (14.0-18.0) g/dl Hct 28.2 L 26.4 L 28.6 L (40.1-51.0) % 11/23/21 Range/Units 06:07 Hgb 10.1 L (14.0-18.0) g/dl Hct 29.3 L (40.1-51.0) % Coagulation 11/18/21 Range/Units 20:28 INR 1.1 (0.9-1.1) Diagnostic Findings . PG Care Time/CCT Total # of Minutes Spent Total Time Spent with Patient: Total time spent is greater than 50% in coordination of care (as documented) at patient's floor/unit and/or counseling patient: Coding Level of Care Code 06929 Post Operative Follow-Up Diagnoses Closed intertrochanteric fracture of left hip S72.142A Encounter type: initial encounter Fracture alignment: displaced (1) Closed intertrochanteric fracture of left hip Encounter type: initial encounter Fracture alignment: displaced Qualified Code(s): S72.142A - Displaced intertrochanteric fracture of left femur, initial encounter for closed fracture
--- NOTE | 2021-11-23 19:31 | Hospitalist Progress Note ---
Date of Service November 23, 2021 Assessment & Plan (1) Closed intertrochanteric fracture of left hip: Plan: POD #3 s/p ORIF by Dr Sunny Saleh. DVT proph - low-dose xarelto 10mg daily was initially started but now on hold due to #3 below. 25-OH vit D level about 30. Cont PT, OT. Weight-bearing to LLE as tolerated. Overall pain control remains satisfactory. (2) Acute heart failure with preserved ejection fraction (HFpEF): Plan: 2nd to IV fluids in the setting of severe cxr with pulm edema 11/22 lasix 20mg x 1 again today I suspect he is approaching euvolemic repeat bmp, mag in am (3) Gross hematuria: Plan: likely due to bladder or kidney ca cont cifuentes appreciate urology consult and their assistance with unclogging his catheter cbc and bmp in am cont to hold xarelto - hopefully urine will clear soon (4) Demand ischemia of myocardium: Plan: Patient has been asymptomatic without chest pain or shortness of breath since admission. ECG without ischemic changes. Has chronic bifascicular block. Echocardiogram shows severe aortic stenosis and moderate LVH, no wall motion abnormalities, preserved EF. Thus, troponin elevation was 2nd to myocardial demand ischemia in setting of #1. (5) Elevated troponin: Plan: see above (6) Aortic stenosis: Plan: mild fluid overload as noted in #2 above diurese gently (7) Symptomatic cholelithiasis: Plan: Patient with several months of symptomatic cholelithiasis which is only improved slightly with following a low-fat diet. He is interested in nonsurgical options. Started ursodiol 300 mg p.o. twice daily in addition to low-fat diet. Recommend follow-up with GI as an outpatient. He has been referred to general surgery but given his severe aortic stenosis, doubtful that he would undergo an elective cholecystectomy and he doesn't seem interested in that option either. (8) Hypertension: Plan: Cont to hold losartan (9) Anemia: Plan: Acute blood loss anemia from hip fracture itself. Repeat CBC remains stable even with hematuria. CBC in am. 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 Follows with [facility] [place] and [facility] [place], Dr Rodriguez. Previously on BCG therapy. Now with hematuria as above. Scheduled for immune therapy in the near future along with radiation of the right 8th rib met due to pain. Pt and family asked about chemo while hospitalized - this is not something that will be done while here. (11) B12 deficiency: Plan: B12 was low in 11/2020 B12 this admission continues to be low at 130 Started B12 injections 1000mcg daily x 5 days then PO supplementation thereafter Day #4 of B12 injections Folate level 17 (12) Benign prostatic hyperplasia with urinary obstruction: Plan: Continue home finasteride Had cifuentes placed at admission Removed per protocol Following removal he developed hematuria Hematuria could be from prostatic inflammation, the bladder wall itself (known h/o bladder ca), the left kidney (known kidney ca on that side), etc. Cifuentes placed back due to retention Flomax added had clots obstructing his 16Fr catheter on 11/22; replaced with 22 Fr then formal urology consult today due to ongoing clots & catheter issues - appreciate their assistance cont to maintain catheter (13) Chronic kidney disease, stage 3 (moderate): Plan: Creatinine remains stable Repeat BMP in am CrCl at baseline is 30s c/w stage 3b (14) Pancreatic lesion: Plan: Stable for several years no Rx needed at this time (15) Thrombocytopenia: Plan: resolved. was likely consumptive from his L hip fracture. also the B12 def was likely contributing. (16) Altered mental status: Plan: about the same today - no agitation supportive care for now likely hospital delirium, etc (17) Candidiasis of mouth and esophagus: Plan: resolved cont nystatin solution total 7 days; today is day 4 (18) Constipation: Plan: resolved cont bowel maintenance Plan DVT prophylaxis - HOLD xarelto; SCDs only daughter extensively updated at bedside Admission and Anticipated Discharge Date Admission Date: November 18, 2021 Subjective patient resting in bed during the visit daughter at bedside has had copious stools throughout the day today appetite fair denies dyspnea left hip pain controlled cifuentes catheter this am unclogged by urology - appreciate urology consult; current catheter did not need exchanging no new issues Review of Systems Review of Systems: gen - fatigue cv - no cp, no orthopnea GI - no abd pain chest - mild right rib pain - chronic - due to mets pulm - no cough psych/neuro - visual hallucinations/distortions remain - chronic Physical Exam Physical Exam: gen - NAD, pleasant confusion, looks similar to prior exams mouth - MMM; previous thrush plaques resolved neck - no JVD heart - irregular (extra beats), regular rate, s1 s2, 2/6 holosystolic murmur RUSB/apex lungs - b/l basilar rales resolved abd - soft NT ND BS+; no HSM; abdomen is softer today ext - left thigh edema present, dressings intact left lateral hip vasc - pulses feet 2+ b/l, no edema Results & Data Results & [facility] ([facility]) Vital Signs (Past 12 Hours) Vital Signs Temp Pulse Resp BP Pulse Ox O2 Del Method O2 Flow Rate 11/23/21 14:51 36.9 C 92 H 18 115/62 97 Nasal Cannula 1.5 Laboratory Results Laboratory Results - last 24 hr 11/23/21 11/23/21 06:07 06:07 WBC 7.98 RBC 3.10 L Hgb 10.1 L Hct 29.3 L MCV 94.5 MCH 32.6 MCHC 34.5 RDW Std Deviation 42.1 RDW Coeff of Jazmyne 12.1 Plt Count 156 MPV 10.3 Sodium 137 Potassium 4.0 Chloride 103 Carbon Dioxide 27 Anion Gap 7 BUN 29 H Creatinine 1.19 Est Cr Clr Drug Dosing 40.7 Est GFR ( Amer) 62.4 Est GFR (Non-Af Amer) 53.8 BUN/Creatinine Ratio 24.4 H Glucose 94 Calcium 8.3 L PG Care Time/CCT Total # of Minutes Spent Total Time Spent with Patient: Total time spent is greater than 50% in coordination of care (as documented) at patient's floor/unit and/or counseling patient: Coding Level of Care Code 61390 Subseq Hosp Care Lvl 2 Diagnoses Closed intertrochanteric fracture of left hip S72.142A Encounter type: initial encounter Fracture alignment: displaced Acute heart failure with preserved ejection fraction (HFpEF) I50.31 Gross hematuria R31.0 Demand ischemia of myocardium I24.8 Elevated troponin R77.8 Aortic stenosis I35.0 Symptomatic cholelithiasis K80.20 Hypertension I10 Anemia D64.9 Transitional cell carcinoma of left kidney C64.2 B12 deficiency E53.8 Benign prostatic hyperplasia with urinary obstruction N40.1; N13.8 Chronic kidney disease, stage 3 (moderate) N18.3 Pancreatic lesion K86.9 Thrombocytopenia D69.6 Altered mental status R41.82 Candidiasis of mouth and esophagus B37.81; B37.0 Constipation K59.00 (1) Closed intertrochanteric fracture of left hip Encounter type: initial encounter Fracture alignment: displaced Qualified Code(s): S72.142A - Displaced intertrochanteric fracture of left femur, initial encounter for closed fracture
[2021-11-23] MEDS: MELATONIN 3 MG TAB PO SCH (20:48)
[2021-11-23] MEDS: FINASTERIDE 5 MG TAB PO SCH (20:48)
[2021-11-23] MEDS: DOCUSATE SODIUM/SENNA 50/8.6MG TAB PO SCH (20:53)
[2021-11-23] MEDS: DOCUSATE SODIUM 100 MG CAP PO SCH (20:54)
[2021-11-24 07:20] LABS: Hematocrit (blood only) 27.1 % (40.1-51.0); Hemoglobin 9.3 g/dl (14.0-18.0); Mean Corpuscular Hemoglobin 32.5 pg (25.0-34.0); Mean Corpuscular Hgb Conc 34.3 g/dL (32.0-36.0); Mean Corpuscular Volume 94.8 fL (80.0-100.0); Mean Platelet Volume 10.1 fL (9.4-12.4); Platelet Count 165 K/uL (130-400); RDW Standard Deviation 41.6 fL (36.4-46.3); Red Blood Count 2.86 M/uL (4.63-6.08); White Blood Count 6.98 K/ul (4.8-10.8)
[2021-11-24 08:13] LABS: BUN Creatinine Ratio 23.8 (10-20); Creatinine Clr Calc Pharmacy 37.3 ml/min; Est GFR (African American) 56.1 ml/min; Est GFR (Non-African American) 48.4 ml/min; Magnesium 1.8 mg/dl (1.7-2.4); Potassium 3.7 mmol/L (3.5-5.1)
[2021-11-24] MEDS: traMADol HCL 50 MG TABLET PO PRN ×2 (09:07→22:05)
[2021-11-24] MEDS: CYANOCOBALAMIN 1000 MCG/ML VIAL IM SCH (09:08)
[2021-11-24] MEDS: ursodioL 300 MG CAP PO SCH ×2 (09:08→22:12)
[2021-11-24] MEDS: POLYETHYLENE (MIRALAX) 17 GM PACK PO SCH ×2 (09:08→22:09)
[2021-11-24] MEDS: TAMSULOSIN HCL 0.4 MG CAP PO SCH (09:08)
[2021-11-24] MEDS: CHOLECALCIFEROL 1,000 UNITS 25 MCG TAB PO SCH (09:08)
[2021-11-24] MEDS: NYSTATIN SUSP 500,000 U/5 ML UDC PO SCH ×4 (09:08→22:06)
--- NOTE | 2021-11-24 09:51 | Urology Progress Note ---
Date of Service November 24, 2021 Assessment & Plan (1) Gross hematuria: Plan: Hematuria but catheter functioning appropriately Labs stable No further intervention Please call if further issues arise Admission and Anticipated Discharge Date Admission Date: November 18, 2021 Subjective Still with some blood in his urine but overall feels well and denies any issues with the catheter overnight Physical Exam Physical Exam: Hess in placecranberry juice colored urine Results & Data ([facility]) Vital Signs (Past 12 Hours) Vital Signs Temp Pulse Resp BP Pulse Ox O2 Del Method O2 Flow Rate 11/24/21 07:37 36.4 C L 77 16 138/79 98 2 11/23/21 23:04 36.6 C 76 18 110/58 L 93 Nasal Cannula 2 PG Care Time/CCT Total # of Minutes Spent Total Time Spent with Patient: Total time spent is greater than 50% in coordination of care (as documented) at patient's floor/unit and/or counseling patient: Coding Level of Care Code 33846 Subseq Hosp Care Lvl 2 Diagnoses Gross hematuria R31.0
[2021-11-24] MEDS: LIDOCAINE 5% 1 PATCH TD SCH (15:25)
--- NOTE | 2021-11-24 17:29 | Hospitalist Progress Note ---
Date of Service November 24, 2021 Assessment & Plan (1) Closed intertrochanteric fracture of left hip: Plan: POD #4 s/p ORIF by Dr Sunny Saleh. DVT proph - low-dose xarelto 10mg daily was initially started but now on hold due to #3 below. 25-OH vit D level about 30. Cont PT, OT. Weight-bearing to LLE as tolerated. Overall pain control remains satisfactory. (2) Acute heart failure with preserved ejection fraction (HFpEF): Plan: 2nd to IV fluids in the setting of severe cxr with pulm edema 11/22 received lasix 20mg x 2 doses Na level now 134 and Cr trended up - would not give further diuretics today his lungs are clear as well likely resolved decompensation event (3) Gross hematuria: Plan: ongoing likely due to bladder or kidney ca cont cifuentes appreciate urology consult and their assistance cbc and bmp in am; H/H only slightly lower than prior cbc cont to hold xarelto - hopefully urine will clear soon (4) Demand ischemia of myocardium: Plan: Patient has been asymptomatic without chest pain or shortness of breath since admission. ECG without ischemic changes. Has chronic bifascicular block. Echocardiogram shows severe aortic stenosis and moderate LVH, no wall motion abnormalities, preserved EF. Thus, troponin elevation was 2nd to myocardial demand ischemia in setting of #1. (5) Elevated troponin: Plan: see above (6) Aortic stenosis: Plan: mod-severe (7) Symptomatic cholelithiasis: Plan: Patient with several months of symptomatic cholelithiasis which is only improved slightly with following a low-fat diet. He is interested in nonsurgical options. Started ursodiol 300 mg p.o. twice daily in addition to low-fat diet. Recommend follow-up with GI as an outpatient. He has been referred to general surgery but given his severe aortic stenosis, doubtful that he would undergo an elective cholecystectomy and he doesn't seem interested in that option either. (8) Hypertension: Plan: Cont to hold losartan BPs controlled w/o it (9) Anemia: Plan: Acute blood loss anemia from hip fracture itself. Repeat CBC with slightly lower H/H today but can continue to trend his cbc. 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 [place] [facility] [place] and [facility] [place], Dr Rodriguez. Previously on BCG therapy. Now with hematuria as above. Scheduled for immune therapy in the near future along with radiation of the right 8th rib met due to pain. Pt and family asked about chemo while hospitalized - this is not something that will be done while here. 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 (11) B12 deficiency: Plan: B12 was low in 11/2020 B12 this admission continues to be low at 130 Started B12 injections 1000mcg daily x 5 days then PO supplementation thereafter Day #5 of B12 injections Folate level 17 switch to PO B12 tomorrow (12) Benign prostatic hyperplasia with urinary obstruction: Plan: Continue home finasteride Had cifuentes placed at admission Removed per protocol Following removal he developed hematuria Hematuria could be from prostatic inflammation, the bladder wall itself (known h/o bladder ca), the left kidney (known kidney ca on that side), etc. Cifuentes placed back due to retention Flomax added had clots obstructing his 16Fr catheter on 11/22; replaced with 22 Fr at that time formal urology consult 11/23 due to ongoing clots & catheter issues - appreciate their assistance cont to maintain catheter the catheter is draining fine now and, although hematuria remains, it is no worse than previous (13) Chronic kidney disease, stage 3 (moderate): Plan: Creatinine remains stable Repeat BMP in am CrCl at baseline is 30s c/w stage 3b (14) Pancreatic lesion: Plan: Stable for several years no Rx needed at this time (15) Thrombocytopenia: Plan: resolved. was likely consumptive from his L hip fracture. also the B12 def was likely contributing. (16) Altered mental status: Plan: about the same today - no agitation supportive care for now likely hospital delirium (17) Candidiasis of mouth and esophagus: Plan: resolved cont nystatin solution total 7 days; today is day 5 (18) Constipation: Plan: resolved cont bowel maintenance Plan DVT prophylaxis - HOLD xarelto; SCDs only /son extensively updated at bedside dispo - SNF post-d/c Admission and Anticipated Discharge Date Admission Date: November 18, 2021 Subjective c/o right sided chest wall pain from known metastatic disease appetite remains poor he denies any dyspnea continues to move bowels sleepy today although has tried to watch some of the [employer] game no new issues hematuria slightly better - rather than deep sanchez red urine it is slightly more clear today , son at bedside today Review of Systems Review of Systems: gen - tired, but no fevers; appetite poor cv - no orthopnea, no PND, no chest pain pulm - denies any cough/dyspnea but remains on NC O2 GI - no abd pain, N/V Physical Exam Physical Exam: gen - NAD, pleasant, lying in bed comfortably mouth - MMM; previous thrush plaques resolved neck - no JVD heart - irregular (extra beats), regular rate, s1 s2, 2/6 holosystolic murmur RUSB/apex lungs - b/l basilar rales resolved, good airation, no wheeze abd - soft NT ND BS+; no HSM ext - left thigh edema present/unchanged, dressings intact left lateral hip vasc - pulses feet 2+ b/l, no edema Results & Data Results & Data ([facility]) Vital Signs (Past 12 Hours) Vital Signs Temp Pulse Resp BP Pulse Ox O2 Del Method O2 Flow Rate 11/24/21 16:08 36.4 C L 82 16 112/64 94 2 11/24/21 11:43 Nasal Cannula 2 11/24/21 07:37 36.4 C L 77 16 138/79 98 2 Laboratory Results Laboratory Results - last 24 hr 11/24/21 11/24/21 06:59 06:59 WBC 6.98 RBC 2.86 L Hgb 9.3 L Hct 27.1 L MCV 94.8 MCH 32.5 MCHC 34.3 RDW Std Deviation 41.6 RDW Coeff of Jazmyne 12.0 Plt Count 165 MPV 10.1 Sodium 134 L Potassium 3.7 Chloride 102 Carbon Dioxide 26 Anion Gap 6 BUN 31 H Creatinine 1.30 Est Cr Clr Drug Dosing 37.3 Est GFR ( Amer) 56.1 Est GFR (Non-Af Amer) 48.4 BUN/Creatinine Ratio 23.8 H Glucose 92 Calcium 8.0 L Magnesium 1.8 PG Care Time/CCT Total # of Minutes Spent Total Time Spent with Patient: Total time spent is greater than 50% in coordination of care (as documented) at patient's floor/unit and/or counseling patient: Coding Level of Care Code 90942 Subseq Hosp Care Lvl 2 Diagnoses Closed intertrochanteric fracture of left hip S72.142A Encounter type: initial encounter Fracture alignment: displaced Acute heart failure with preserved ejection fraction (HFpEF) I50.31 Gross hematuria R31.0 Demand ischemia of myocardium I24.8 Elevated troponin R77.8 Aortic stenosis I35.0 Symptomatic cholelithiasis K80.20 Hypertension I10 Anemia D64.9 Transitional cell carcinoma of left kidney C64.2 B12 deficiency E53.8 Benign prostatic hyperplasia with urinary obstruction N40.1; N13.8 Chronic kidney disease, stage 3 (moderate) N18.3 Pancreatic lesion K86.9 Thrombocytopenia D69.6 Altered mental status R41.82 Candidiasis of mouth and esophagus B37.81; B37.0 Constipation K59.00 (1) Closed intertrochanteric fracture of left hip Encounter type: initial encounter Fracture alignment: displaced Qualified Code(s): S72.142A - Displaced intertrochanteric fracture of left femur, initial encounter for closed fracture
--- NOTE | 2021-11-24 19:17 | Orthopedic Progress Note ---
Date of Service November 24, 2021 Assessment & Plan (1) Closed intertrochanteric fracture of left hip: POD4 s/p Left Hip cephalomedullary nail for fracture (DOS 11/20/2021). Making progress as expected. -No changes. Continue POC. -DVT PPx - relative risk. Per urology recommendations for now. Consider tra nsitioning to aspirin daily at discharge. Greatest risks within the first 6 weeks. -PT/OT to continue; WBAT LLE -Dressing changes as needed at this point. Dispo: Orthopedic discharge plan will be placed in the discharge instructions. Will need nay removed at 2-3 weeks postoperatively. May contact our clinic after discharge for follow-up. We will need x-rays at 6 weeks postop. DVT prophylaxis per primary team considering urologic precautions. Can consider transition to aspirin for 6 weeks. Call with questions Subjective Chart reviewed. Review of Systems All systems reviewed & are unremarkable except as noted in HPI & below. Physical Exam Chart reviewed Results & Data Results & Data Laboratory Results . Diagnostic Findings . PG Care Time/CCT Total # of Minutes Spent Total Time Spent with Patient: Total time spent is greater than 50% in coordination of care (as documented) at patient's floor/unit and/or counseling patient: Coding Level of Care Code 49581 Post Operative Follow-Up Diagnoses Closed intertrochanteric fracture of left hip S72.142A Encounter type: initial encounter Fracture alignment: displaced (1) Closed intertrochanteric fracture of left hip Encounter type: initial encounter Fracture alignment: displaced Qualified Code(s): S72.142A - Displaced intertrochanteric fracture of left femur, initial encounter for closed fracture
[2021-11-24] MEDS: MELATONIN 3 MG TAB PO SCH (22:05)
[2021-11-24] MEDS: DOCUSATE SODIUM 100 MG CAP PO SCH (22:12)
[2021-11-24] MEDS: DOCUSATE SODIUM/SENNA 50/8.6MG TAB PO SCH (22:13)
[2021-11-24] MEDS: FINASTERIDE 5 MG TAB PO SCH (22:13)
[2021-11-25 06:55] LABS: Hemoglobin 9.3 g/dl (14.0-18.0); Mean Corpuscular Hemoglobin 32.2 pg (25.0-34.0); Mean Corpuscular Hgb Conc 34.4 g/dL (32.0-36.0); Mean Corpuscular Volume 93.4 fL (80.0-100.0); Mean Platelet Volume 9.8 fL (9.4-12.4); Platelet Count 191 K/uL (130-400); RDW Coefficient of Variation 11.8 % (11.5-14.5); RDW Standard Deviation 40.3 fL (36.4-46.3); Red Blood Count 2.89 M/uL (4.63-6.08)
[2021-11-25 07:27] LABS: BUN Creatinine Ratio 25.8 (10-20); Calcium 8.1 mg/dl (8.5-10.1); Creatinine Clr Calc Pharmacy 37.9 ml/min; Est GFR (African American) 57.1 ml/min; Est GFR (Non-African American) 49.3 ml/min; Potassium 3.7 mmol/L (3.5-5.1)
[2021-11-25] MEDS ORDERED: POTASSIUM CHLORIDE CRTAB 20 MEQ TABCR PO STA (07:52)
[2021-11-25] MEDS ORDERED: FUROSEMIDE 20 MG TAB PO ONE (07:52)
[2021-11-25] MEDS: ursodioL 300 MG CAP PO SCH ×2 (08:07→20:25)
[2021-11-25] MEDS: NYSTATIN SUSP 500,000 U/5 ML UDC PO SCH ×4 (08:08→20:25)
[2021-11-25] MEDS: CHOLECALCIFEROL 1,000 UNITS 25 MCG TAB PO SCH (08:08)
[2021-11-25] MEDS: POLYETHYLENE (MIRALAX) 17 GM PACK PO SCH ×2 (08:09→20:26)
[2021-11-25] MEDS: LIDOCAINE 5% 1 PATCH TD SCH (08:09)
[2021-11-25] MEDS: TAMSULOSIN HCL 0.4 MG CAP PO SCH (08:10)
[2021-11-25] MEDS: traMADol HCL 50 MG TABLET PO PRN ×2 (09:23→20:25)
--- NOTE | 2021-11-25 11:29 | Orthopedic Progress Note ---
Date of Service November 25, 2021 Assessment & Plan (1) Closed intertrochanteric fracture of left hip: POD5 s/p Left Hip cephalomedullary nail for fracture (DOS 11/20/2021). Making progress as expected. ds -No changes. Continue POC. -DVT PPx - relative risk. Per urology recommendations for now. Consider t ransitioning to aspirin daily at discharge. Greatest risks within the first 6 weeks. -PT/OT to continue; WBAT LLE -Prefer to keep wounds covered. Dispo: Orthopedic discharge plan will be placed in the discharge instructions. Will need nay removed at 2-3 weeks postoperatively. May contact our clinic after discharge for follow-up. We will need x-rays at 6 weeks. Contact me via [employer] w any questions. Subjective Pain tolerable. Pleased with progress on hip. Review of Systems All systems reviewed & are unremarkable except as noted in HPI & below. Physical Exam LLE: dressing taken down - wounds well approx without erythema or drainage. good quad set. Getting OOB w PT. Constitutional WD/WN, vitals as above no acute distress and not intoxicated appearing Respiratory normal respiratory effort; no labored breathing Cardiovascular Extremities: normal capillary refill Results & Data Results & Data Laboratory Results . Diagnostic Findings H & H 11/18/21 11/19/21 11/20/21 Range/Units 20:28 06:03 06:24 Hgb 12.8 L 10.8 L 10.6 L (14.0-18.0) g/dl Hct 37.9 L 32.3 L 31.5 L (40.1-51.0) % 11/21/21 11/21/21 11/22/21 Range/Units 05:45 22:53 06:50 Hgb 9.6 L 9.2 L 9.8 L (14.0-18.0) g/dl Hct 28.2 L 26.4 L 28.6 L (40.1-51.0) % 11/23/21 11/24/21 11/25/21 Range/Units 06:07 06:59 06:47 Hgb 10.1 L 9.3 L 9.3 L (14.0-18.0) g/dl Hct 29.3 L 27.1 L 27.0 L (40.1-51.0) % Coagulation 11/18/21 Range/Units 20:28 INR 1.1 (0.9-1.1) PG Care Time/CCT Total # of Minutes Spent Total Time Spent with Patient: Total time spent is greater than 50% in coordination of care (as documented) at patient's floor/unit and/or counseling patient: Coding Level of Care Code 38002 Post Operative Follow-Up Diagnoses Closed intertrochanteric fracture of left hip S72.142A Encounter type: initial encounter Fracture alignment: displaced (1) Closed intertrochanteric fracture of left hip Encounter type: initial encounter Fracture alignment: displaced Qualified Code(s): S72.142A - Displaced intertrochanteric fracture of left femur, initial encounter for closed fracture
--- NOTE | 2021-11-25 18:09 | Hospitalist Progress Note ---
Date of Service November 25, 2021 Assessment & Plan (1) Closed intertrochanteric fracture of left hip: Plan: POD #5 s/p ORIF by Dr Sunny Saleh. DVT proph - low-dose xarelto 10mg daily was initially started but now on hold due to #3 below. Hopefully when hematuria resolves we can reattempt some form of anticoagulation. He is at high risk of VTE given his metastatic cancer and his recent surgery along with significant immobility. 25-OH vit D level about 30. Cont PT, OT. Weight-bearing to LLE as tolerated. Overall pain control remains satisfactory. (2) Acute heart failure with preserved ejection fraction (HFpEF): Plan: 2nd to IV fluids in the setting of severe cxr with pulm edema 11/22 received lasix 20mg x 2 doses compensated/euvolemic today no further diuresis (3) Gross hematuria: Plan: ongoing likely due to bladder or kidney ca cont cifuentes appreciate urology consult and their assistance H/H remain stable cont to hold xarelto - hopefully urine will clear soon without any intervention (4) Demand ischemia of myocardium: Plan: Patient has been asymptomatic without chest pain or shortness of breath since admission. ECG without ischemic changes. Has chronic bifascicular block. Echocardiogram shows severe aortic stenosis and moderate LVH, no wall motion abnormalities, preserved EF. Thus, troponin elevation was 2nd to myocardial demand ischemia in setting of #1. (5) Elevated troponin: Plan: see above (6) Aortic stenosis: Plan: mod-severe (7) Symptomatic cholelithiasis: Plan: Patient with several months of symptomatic cholelithiasis which only improved slightly following a low-fat diet. He has expressed interested in nonsurgical options. Started ursodiol 300 mg p.o. twice daily in addition to low-fat diet. Recommend follow-up with GI as an outpatient. He has been referred to general surgery but given his severe aortic stenosis and his recent L hip Fx doubtful that he would undergo an elective cholecystectomy (and he doesn't seem interested in that option either). (8) Hypertension: Plan: Cont to hold losartan BPs controlled w/o it (9) Anemia: Plan: Acute blood loss anemia from hip fracture itself. Repeat CBC today - despite hematuria - remains stable. CBC in am. 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 Follows with [facility] [place] and [facility] [place] [facility], Dr Rodriguez. Previously on BCG therapy. Now with hematuria as above. Scheduled for immune therapy in the near future along with radiation of the right 8th rib met due to pain. Pt and family asked about chemo while hospitalized - this is not something that will be done while here. 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 Make tylenol 1gm TID scheduled. (11) B12 deficiency: Plan: B12 was low in 11/2020 B12 this admission continues to be low at 130 Started B12 injections 1000mcg daily x 5 days then PO supplementation thereafter Day #5 of B12 injections Folate level 17 switch to PO B12 (12) Benign prostatic hyperplasia with urinary obstruction: Plan: Continue home finasteride Had cifuentes placed at admission Removed per protocol Following removal he developed hematuria Hematuria could be from prostatic inflammation, the bladder wall itself (known h/o bladder ca), the left kidney (known kidney ca on that side), etc. Cifuentes placed back due to retention Flomax added had clots obstructing his 16Fr catheter on 11/22; replaced with 22 Fr at that time formal urology consult 11/23 due to ongoing clots & catheter issues - appreciate their assistance cont to maintain catheter the catheter is draining fine now and, although hematuria remains, it is no worse than previous H/H stable today (13) Chronic kidney disease, stage 3 (moderate): Plan: Creatinine remains stable Repeat BMP in am CrCl at baseline is 30s c/w stage 3b (14) Pancreatic lesion: Plan: Stable for several years no Rx needed at this time (15) Thrombocytopenia: Plan: resolved. was likely consumptive from his L hip fracture. also the B12 def was likely contributing. (16) Altered mental status: Plan: resolved had mild post-op delirium / hospital delirium (17) Candidiasis of mouth and esophagus: Plan: resolved cont nystatin solution total 7 days; today is day 6 (18) Constipation: Plan: resolved cont bowel maintenance Plan DVT prophylaxis - HOLD xarelto; SCDs only /son extensively updated at bedside yesterday dispo - SNF post-d/c Admission and Anticipated Discharge Date Admission Date: November 18, 2021 Subjective patient resting during my visit denied any specific complaints today no family at bedside today but he said they had visited earlier in the day he was comfortable - denied any pain at the moment hip pain improved sat in the chair a bit today nursing flowsheets show fair/good appetite cifuentes with ongoing hematuria - no worse than previous Review of Systems Review of Systems: gen - tired, but otherwise feeling ok cv - no orthopnea pulm - no cough, no dyspnea, no MARSH; during the visit I changed his pulse ox probe to a forehead probe - sats 93% or higher in room air GI - no abd pain, nausea, emesis Physical Exam Physical Exam: gen - NAD, pleasant, lying flat in bed comfortably mouth - MMM; previous thrush plaques resolved neck - no JVD heart - irregular (extra beats), regular rate, s1 s2, 2/6 holosystolic murmur RUSB/apex lungs - CTA b/l, no rales or wheezes, airation wnl abd - soft NT ND BS+; no HSM ext - left thigh edema present/unchanged, dressings intact left lateral hip, no bleeding vasc - pulses feet 2+ b/l, no edema Results & Data Results & Data ([facility]) Vital Signs (Past 12 Hours) Vital Signs Temp Pulse Pulse Resp BP Pulse Ox O2 Del Method 11/25/21 16:21 97 11/25/21 16:00 36.4 C L 83 18 136/40 L 94 Room Air 11/25/21 12:53 36.4 C L 74 17 126/78 96 Nasal Cannula 11/25/21 08:00 36.5 C 88 17 110/62 97 Nasal Cannula 11/25/21 07:45 36.4 C L 67 16 134/76 94 O2 Flow Rate 11/25/21 16:21 11/25/21 16:00 11/25/21 12:53 2 11/25/21 08:00 2 11/25/21 07:45 2 Laboratory Results Laboratory Results - last 24 hr 11/25/21 11/25/21 06:47 06:47 WBC 6.80 RBC 2.89 L Hgb 9.3 L Hct 27.0 L MCV 93.4 MCH 32.2 MCHC 34.4 RDW Std Deviation 40.3 RDW Coeff of Jazmyne 11.8 Plt Count 191 MPV 9.8 Sodium 136 Potassium 3.7 Chloride 104 Carbon Dioxide 27 Anion Gap 5 BUN 33 H Creatinine 1.28 Est Cr Clr Drug Dosing 37.9 Est GFR ( Amer) 57.1 Est GFR (Non-Af Amer) 49.3 BUN/Creatinine Ratio 25.8 H Glucose 101 H Calcium 8.1 L PG Care Time/CCT Total # of Minutes Spent Total Time Spent with Patient: Total time spent is greater than 50% in coordination of care (as documented) at patient's floor/unit and/or counseling patient: Coding Level of Care Code 93528 Subseq Hosp Care Lvl 2 Diagnoses Closed intertrochanteric fracture of left hip S72.142A Encounter type: initial encounter Fracture alignment: displaced Acute heart failure with preserved ejection fraction (HFpEF) I50.31 Gross hematuria R31.0 Demand ischemia of myocardium I24.8 Elevated troponin R77.8 Aortic stenosis I35.0 Symptomatic cholelithiasis K80.20 Hypertension I10 Anemia D64.9 Transitional cell carcinoma of left kidney C64.2 B12 deficiency E53.8 Benign prostatic hyperplasia with urinary obstruction N40.1; N13.8 Chronic kidney disease, stage 3 (moderate) N18.3 Pancreatic lesion K86.9 Thrombocytopenia D69.6 Altered mental status R41.82 Candidiasis of mouth and esophagus B37.81; B37.0 Constipation K59.00 (1) Closed intertrochanteric fracture of left hip Encounter type: initial encounter Fracture alignment: displaced Qualified Code(s): S72.142A - Displaced intertrochanteric fracture of left femur, initial encounter for closed fracture
[2021-11-25] MEDS: FINASTERIDE 5 MG TAB PO SCH (20:25)
[2021-11-25] MEDS: MELATONIN 3 MG TAB PO SCH (20:25)
[2021-11-25] MEDS: DOCUSATE SODIUM/SENNA 50/8.6MG TAB PO SCH (20:26)
[2021-11-25] MEDS: DOCUSATE SODIUM 100 MG CAP PO SCH (20:26)
[2021-11-26 06:50] LABS: Hematocrit (blood only) 27.4 % (40.1-51.0); Hemoglobin 9.4 g/dl (14.0-18.0); Mean Corpuscular Hemoglobin 32.4 pg (25.0-34.0); Mean Corpuscular Hgb Conc 34.3 g/dL (32.0-36.0); Mean Corpuscular Volume 94.5 fL (80.0-100.0); Mean Platelet Volume 9.7 fL (9.4-12.4); Platelet Count 229 K/uL (130-400); RDW Coefficient of Variation 11.9 % (11.5-14.5); RDW Standard Deviation 40.8 fL (36.4-46.3); White Blood Count 6.39 K/ul (4.8-10.8)
[2021-11-26 07:09] LABS: BUN Creatinine Ratio 23.8 (10-20); Calcium 8.4 mg/dl (8.5-10.1); Creatinine Clr Calc Pharmacy 37.3 ml/min; Est GFR (African American) 56.1 ml/min; Est GFR (Non-African American) 48.4 ml/min
[2021-11-26] MEDS: NYSTATIN SUSP 500,000 U/5 ML UDC PO SCH ×4 (09:31→21:19)
[2021-11-26] MEDS: CHOLECALCIFEROL 1,000 UNITS 25 MCG TAB PO SCH (09:31)
[2021-11-26] MEDS: TAMSULOSIN HCL 0.4 MG CAP PO SCH (09:31)
[2021-11-26] MEDS: ursodioL 300 MG CAP PO SCH ×2 (09:31→21:20)
[2021-11-26] MEDS: ACETAMINOPHEN 500 MG TAB PO SCH ×3 (09:32→21:23)
[2021-11-26] MEDS: CYANOCOBALAMIN (B-12) 500 MCG TABLET PO SCH (09:32)
[2021-11-26] MEDS: POLYETHYLENE (MIRALAX) 17 GM PACK PO SCH ×2 (09:33→21:24)
[2021-11-26] MEDS: LIDOCAINE 5% 1 PATCH TD SCH (09:33)
--- NOTE | 2021-11-26 14:05 | CT Scan Report ---
HEAD CT NONCONTRAST CT DOSE: 614.27 mGy.cm HISTORY: confusion, recent surgery; eval CVA, etc TECHNIQUE: Multiaxial CT images of the head were performed without the use of intravenous contrast. A utomated exposure control was utilized for this study. A dose lowering technique was utilized adheri ng to the principles of ALARA. Comparison: Head CT 11/18/2021. Findings: The paranasal sinuses and mastoid air cells are clear. The calvarium and skull base are int act. There is no mass, hematoma, midline shift, acute infarct. White matter hypodensity is nonspecifi c but suggestive of microvascular ischemic change. The ventricles and sulci demonstrate mild age-rela yosi involutional changes. Impression: No significant change compared to the prior study. No acute intracranial abnormality. ACT 112: Negative or not required by law. Electronically signed by: Cristofer Luna M.D. 11/26/2021 2:04 PM
[2021-11-26] MEDS: TRIAMCINOLONE ACET 0.1% CR 15 GM TUBE EXT SCH ×2 (16:00→21:19)
--- NOTE | 2021-11-26 19:38 | XRay Report ---
SINGLE VIEW PELVIS; 2 VIEWS LEFT HIP CLINICAL HISTORY: Fall. Recent hip surgery. FINDINGS: An AP view of the pelvis with AP and crosstable lateral views of the left hip are compared to study dated 11/20/2021. The skeletal structures are osteopenic. There is unchanged alignment of a subacute intertrochanteric fracture of the left proximal femur with intertrochanteric and intramedull baltazar nails in place. Overlying soft tissue edema is again noted. Skin clips are in place. No new fract ure is seen involving the bony pelvis or the right hip. Mild arthritic change and joint space narrowi ng is noted in the hips. Sclerotic change is seen in the sacroiliac joints. A bladder catheter is in place. The distal end of the lateral stent is noted in the left lower quadrant, and an electronic dev ice projects over the pelvis. There are pelvic phleboliths. Atherosclerotic calcification is noted in the femoral arteries. IMPRESSION: 1. No new fracture is seen involving the hips or bony pelvis. 2. There is unchanged alignment of a left femoral fracture with intertrochanteric and intramedullary nails in place. Electronically signed by: Mahamed Thomas M.D. 11/26/2021 7:36 PM
--- NOTE | 2021-11-26 20:19 | Hospitalist Progress Note ---
Date of Service November 26, 2021 Assessment & Plan (1) Fall: Plan: this afternoon, found laying on left side on the floor next to bed no obvious head injury/neck injury/trauma to the left hip skin tear right elbow only obtain x-rays of left hip to ensure intact hardware obtain x-rays of right elbow r/o fracture fall precautions consider mats next to bed may need 1:1 patient with significant confusion, hallucinations, etc contributing to his fall risk he is also severely visually impaired which will contribute to his fall risk (2) Closed intertrochanteric fracture of left hip: Plan: POD #6 s/p ORIF by Dr Sunny Saleh. DVT proph - low-dose xarelto 10mg daily was initially started but now on hold due to #3 below. Hopefully when hematuria resolves we can reattempt some form of anticoagulation. He is at high risk of VTE given his metastatic cancer and his recent surgery along with significant immobility. 25-OH vit D level about 30. Cont PT, OT. Weight-bearing to LLE as tolerated. Overall pain control remains satisfactory on tylenol 1gm TID. Also on tramadol prn. He was taking this at home and this did not cause any issues for him at home. (3) Altered mental status: Plan: had mild post-op delirium / hospital delirium - which then improved but unfortunately last 2-3 days his delirium has worsened he already has at baseline severe visual hallucinations I discussed his delirium with his and his daughter today I was initially reluctant to start low-dose antipsychotic for his delirium However, now with the fall and his wanting to get out of bed, etc - antipsychotic may be best to help with his severe visual hallucinations as well as worsening delirium will use tiny dose of risperdal M tab - 0.25mg HS tonight cont melatonin HS blinds open during the day; stimulate him during the day; blinds down at night; lights off at night; etc (4) Acute heart failure with preserved ejection fraction (HFpEF): Plan: 2nd to IV fluids in the setting of severe perioperatively - resolved cxr with pulm edema 11/22 received lasix 20mg x 2 doses again compensated/euvolemic today no further diuresis (5) Gross hematuria: Plan: ongoing likely due to bladder or kidney ca cont cifuentes appreciate urology consult and their assistance H/H still remain stable cont to hold xarelto - hopefully urine will clear soon without any intervention (6) Demand ischemia of myocardium: Plan: Patient has been asymptomatic without chest pain or shortness of breath since admission. ECG without ischemic changes. Has chronic bifascicular block. Echocardiogram shows severe aortic stenosis and moderate LVH, no wall motion abnormalities, preserved EF. Thus, troponin elevation was 2nd to myocardial demand ischemia in setting of #1. (7) Elevated troponin: Plan: see above (8) Aortic stenosis: Plan: mod-severe (9) Symptomatic cholelithiasis: Plan: Patient with several months of symptomatic cholelithiasis which only improved slightly following a low-fat diet. He has expressed interested in nonsurgical options. Started ursodiol 300 mg p.o. twice daily in addition to low-fat diet. Recommend follow-up with GI as an outpatient. He has been referred to general surgery but given his severe aortic stenosis and his recent L hip Fx doubtful that he would undergo an elective cholecystectomy (and he doesn't seem interested in that option either). (10) Hypertension: Plan: Cont to hold losartan BPs controlled w/o it (11) Anemia: Plan: Acute blood loss anemia from hip fracture itself. Hematuria contributing some as well. CBC x 3 days, however, stable. Repeat cbc in am. 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 [place]s with [facility] [place] [facility] [place] [facility], Dr Rodriguez. Previously on BCG therapy. Now with hematuria as above. Scheduled for immune therapy in the near future along with radiation of the right 8th rib met due to pain. Pt and family asked about chemo while hospitalized - this is not something that will be done while here. 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 Continue tylenol 1gm TID scheduled. (13) B12 deficiency: Plan: B12 was low in 11/2020 B12 this admission continues to be low at 130 Started B12 injections 1000mcg daily x 5 days then PO supplementation thereafter start PO B12 1000mcg daily Folate level 17 (14) Benign prostatic hyperplasia with urinary obstruction: Plan: Continue home finasteride Had cifuentes placed at admission Removed per protocol Following removal he developed hematuria Hematuria could be from prostatic inflammation, the bladder wall itself (known h/o bladder ca), the left kidney (known kidney ca on that side), etc. Cifuentes placed back due to retention Flomax added had clots obstructing his 16Fr catheter on 11/22; replaced with 22 Fr at that time formal urology consult 11/23 due to ongoing clots & catheter issues - appreciate their assistance cont to maintain catheter the catheter is draining fine now and, although hematuria remains, it is no worse than previous H/H again stable today (15) Chronic kidney disease, stage 3 (moderate): Plan: stage 3b Creatinine remains stable Repeat BMP in am (16) Pancreatic lesion: Plan: Stable for several years no Rx needed at this time (17) Thrombocytopenia: Plan: resolved. was likely consumptive from his L hip fracture. also the B12 def was likely contributing. (18) Candidiasis of mouth and esophagus: Plan: resolved cont nystatin solution total 7 days; today is day 7 (19) Constipation: Plan: resolved cont bowel maintenance Plan DVT prophylaxis - HOLD xarelto; SCDs only /daughter extensively updated at bedside today dispo - SNF post-d/c delirium, appetite need to improve prior to d/c Admission and Anticipated Discharge Date Admission Date: November 18, 2021 Subjective per staff no events overnight I came to see him late am per nursing flowsheets he took very little breakfast his was at bedside she was very distraught due to his ongoing hematuria and his confusion she said "this isn't my " (referring to his delirium) he continues with fairly vivid hallucinations patient was sitting in the chair during this first visit later in the day I was called by staff that the patient had returned from his head CT staff then found him laying on his left side on the floor he was put back to bed I came to check on him shortly after this fall his daughter was now at bedside I explained I was there to check him over for injuries He cannot recollect how he ended up on the floor - he said "i wanted to go for a walk" he denied any pain in any location He denied hitting his head, and denied head or neck pain Review of Systems Review of Systems: gen - eating fair/poor at some meals, and good at others cv - no cp, no orthopnea pulm - no dyspnea, no cough GI - no abd pain - cifuentes with ongoing hematuria musculo - denies any significant left hip pain Physical Exam Physical Exam: first visit gen - NAD, sitting in chair, pleasantly confused mouth - MMM; previous thrush plaques resolved neck - no JVD heart - irregular (extra beats), regular rate, s1 s2, 2/6 holosystolic murmur RUSB/apex lungs - CTA b/l, no rales or wheezes, airation wnl abd - soft NT ND BS+; no HSM ext - left thigh edema present/unchanged, dressings intact left lateral hip, no bleeding vasc - pulses feet 2+ b/l, no edema psych - awake, oriented to person only 2nd visit post-fall - head - no bruising, bleeding or signs of trauma neck - no pain over any spinous process to palpation shoulders/arms - skin tear right elbow; passive flexion/extension of elbow on right without pain chest - no signs of trauma pelvis - no pain to palpation right leg - passive ROM without any pain left hip - dressings intact, no new areas of bruise, no deformity feet/lower legs - no signs of trauma skin - skin tear right elbow region, no obvious deformity of elbow however Results & Data Results & Data ([facility]) Vital Signs (Past 12 Hours) Vital Signs Temp Pulse Resp BP Pulse Ox O2 Del Method 11/26/21 16:30 85 16 162/61 H 93 11/26/21 15:22 36.5 C 90 22 156/81 H 97 Room Air Laboratory Results Laboratory Results - last 24 hr 11/26/21 11/26/21 06:25 06:25 WBC 6.39 RBC 2.90 L Hgb 9.4 L Hct 27.4 L MCV 94.5 MCH 32.4 MCHC 34.3 RDW Std Deviation 40.8 RDW Coeff of Jazmyne 11.9 Plt Count 229 MPV 9.7 Sodium 137 Potassium 4.0 Chloride 107 Carbon Dioxide 24 Anion Gap 6 BUN 31 H Creatinine 1.30 Est Cr Clr Drug Dosing 37.3 Est GFR ( Amer) 56.1 Est GFR (Non-Af Amer) 48.4 BUN/Creatinine Ratio 23.8 H Glucose 104 H Calcium 8.4 L Diagnostic Findings Obtained before the fall -- Head CT 11/26/21 12:[address] DOSE: 614.27 mGy.cm HISTORY: confusion, recent surgery; eval CVA, etc TECHNIQUE: Multiaxial CT images of the head were performed without the use of intravenous contrast. Automated exposure control was utilized for this study. A dose lowering technique was utilized adhering to the principles of ALARA. Comparison: Head CT 11/18/2021. Findings: The paranasal sinuses and mastoid air cells are clear. The calvarium and skull base are intact. There is no mass, hematoma, midline shift, acute infarct. White matter hypodensity is nonspecific but suggestive of microvascular ischemic change. The ventricles and sulci demonstrate mild age-related involutional changes. Impression: No significant change compared to the prior study. No acute intracranial abnormality. ACT 112: Negative or not required by law. Electronically signed by: Cristofer Luna M.D. 11/26/2021 2:04 PM Hip/Pelvis X-Ray 11/26/21 17:09 SINGLE VIEW PELVIS; 2 VIEWS LEFT HIP CLINICAL HISTORY: Fall. Recent hip surgery. FINDINGS: An AP view of the pelvis with AP and crosstable lateral views of the left hip are compared to study dated 11/20/2021. The skeletal structures are osteopenic. There is unchanged alignment of a subacute intertrochanteric fracture of the left proximal femur with intertrochanteric and intramedullary nails in place. Overlying soft tissue edema is again noted. Skin clips are in place. No new fracture is seen involving the bony pelvis or the right hip. Mild arthritic change and joint space narrowing is noted in the hips. Sclerotic change is seen in the sacroiliac joints. A bladder catheter is in place. The distal end of the lateral stent is noted in the left lower quadrant, and an electronic device projects over the pelvis. There are pelvic phleboliths. Atherosclerotic calcification is noted in the femoral arteries. IMPRESSION: 1. No new fracture is seen involving the hips or bony pelvis. 2. There is unchanged alignment of a left femoral fracture with intertrochanteric and intramedullary nails in place. Electronically signed by: Mahamed Thomas M.D. 11/26/2021 7:36 PM PG Care Time/CCT Total # of Minutes Spent Total Time Spent with Patient: Total time spent is greater than 50% in coordination of care (as documented) at patient's floor/unit and/or counseling patient: Coding Level of Care Code 93578 Subseq Hosp Care Lvl 3 Diagnoses Fall W19.XXXA Closed intertrochanteric fracture of left hip S72.142A Encounter type: initial encounter Fracture alignment: displaced Altered mental status R41.82 Acute heart failure with preserved ejection fraction (HFpEF) I50.31 Gross hematuria R31.0 Demand ischemia of myocardium I24.8 Elevated troponin R77.8 Aortic stenosis I35.0 Symptomatic cholelithiasis K80.20 Hypertension I10 Anemia D64.9 Transitional cell carcinoma of left kidney C64.2 B12 deficiency E53.8 Benign prostatic hyperplasia with urinary obstruction N40.1; N13.8 Chronic kidney disease, stage 3 (moderate) N18.3 Pancreatic lesion K86.9 Thrombocytopenia D69.6 Candidiasis of mouth and esophagus B37.81; B37.0 Constipation K59.00 (1) Closed intertrochanteric fracture of left hip Encounter type: initial encounter Fracture alignment: displaced Qualified Code(s): S72.142A - Displaced intertrochanteric fracture of left femur, initial encounter for closed fracture
[2021-11-26] MEDS ORDERED: risperiDONE ODT 0.5 MG SOLTAB PO SCH (21:00)
--- NOTE | 2021-11-26 21:17 | XRay Report ---
RIGHT ELBOW 3 VIEWS CLINICAL HISTORY: Fall with right elbow injury. FINDINGS: 3 views of the right elbow were obtained. No prior studies are available for comparison at the time of dictation. The skeletal structures are osteopenic. There is no radiographic evidence of r ight elbow fracture. The joint spaces are maintained. Enthesophytes arise from the humeral epicondyle s. There is no joint effusion. Mild dorsal soft tissue swelling is noted. IMPRESSION: Mild dorsal soft tissue swelling with no radiographic evidence of acute fracture. Electronically signed by: Mahamed Thomas M.D. 11/26/2021 9:16 PM
[2021-11-26] MEDS: DOCUSATE SODIUM 100 MG CAP PO SCH (21:20)
[2021-11-26] MEDS: MELATONIN 3 MG TAB PO SCH (21:21)
[2021-11-26] MEDS: DOCUSATE SODIUM/SENNA 50/8.6MG TAB PO SCH (21:23)
[2021-11-26] MEDS: FINASTERIDE 5 MG TAB PO SCH (21:24)
--- NOTE | 2021-11-27 04:40 | Communication Note ---
Date of Service: November 27, 2021 notified by nursing at 426AM of bladder scan 405mL w/o cifuentes output. she attempted to deflate balloon and advance catheter-> very large clot and hematur ia came out around catheter. still no urine draining. reviewed notes. urology had been consulted for catheter issue on 11/23/21 and had signed off but stated to reach out if new problems arise. update: cifuentes draining urine (hematuria, same as previous day) after irrigation. several large clots removed. hold off reaching out to urology
[2021-11-27 06:56] LABS: Hematocrit (blood only) 28.6 % (40.1-51.0); Hemoglobin 9.8 g/dl (14.0-18.0); Mean Corpuscular Hemoglobin 32.6 pg (25.0-34.0); Mean Corpuscular Hgb Conc 34.3 g/dL (32.0-36.0); Mean Platelet Volume 9.4 fL (9.4-12.4); Platelet Count 223 K/uL (130-400); RDW Coefficient of Variation 12.1 % (11.5-14.5); RDW Standard Deviation 41.6 fL (36.4-46.3); Red Blood Count 3.01 M/uL (4.63-6.08); White Blood Count 18.99 K/ul (4.8-10.8)
[2021-11-27 07:13] LABS: BUN Creatinine Ratio 20.5 (10-20); Calcium 8.6 mg/dl (8.5-10.1); Creatinine Clr Calc Pharmacy 26.2 ml/min; Est GFR (African American) 36.6 ml/min; Est GFR (Non-African American) 31.6 ml/min; Potassium 3.7 mmol/L (3.5-5.1)
--- NOTE | 2021-11-27 08:10 | XRay Report ---
XR chest 1V portable HISTORY: 89 years-old Male altered MS, cough, hypoxia acute cough with altered mental status and hyp oxia COMPARISON: Chest radiograph 11/22/2021 TECHNIQUE: Portable AP view of the chest FINDINGS: Cardiac silhouette is enlarged. Pulmonary vascular congestion with interstitial coarsening, progresse d from prior. Mild right hemidiaphragmatic elevation. Trace right and small left pleural effusions wi th persistent left basilar densities. Mild right hemidiaphragmatic elevation. Degenerative changes of the shoulders and spine. Healed chronic left-sided rib fractures. Right shoulder rotator cuff calcif ic tendinosis. IMPRESSION: 1. Cardiomegaly with mild pulmonary edema. 2. Small left pleural effusion with mild left basilar consolidation. ACT 112: Negative or not required by law. The above report was generated using voice recognition software. It may contain grammatical, syntax o r spelling errors. Electronically signed by: Mak Sanders M.D. 11/27/2021 8:08 AM
[2021-11-27] MEDS ORDERED: ALBUT/IPRATROP 3MG/0.5MG NEB 3 ML VIAL NEB STA (08:18)
--- NOTE | 2021-11-27 08:30 | Hospitalist Progress Note ---
Date of Service November 27, 2021 Assessment & Plan (1) Septic shock: Plan: Events of this am, BPs, lack of adequate response to fluid resuscitation, elevated lactate, markedly elevated procalcitonin, etc - all c/w septic shock. I cannot rule out a large PE event contributing to #2 and his shock. Source for sepsis - given #2 - likely pneumonia. Can't rule out UTI. Can't rule out biliary source. s/p fluids (gave <30cc/kg due to recent acute CHF), IV zosyn, BIPAP, etc. Numerous discussions held with family shortly after the events began. Code status confirmed to be DNR/DNI. Family quickly moved towards comfort care pathway. (2) Acute respiratory failure with hypoxia: Plan: severe, with need for BIPAP. event despite BIPAP he continued with respiratory distress. Now on comfort care pathway and BIPAP has been removed. (3) Elevated d-dimer: Plan: >35,000. although the value could be high from profound septic shock I am very suspicious he had a VTE/PE event. he was high risk for VTE due to stage 4 bladder cancer, recent surgery, and poor mobility. his recent xarelto for DVT proph was on hold appropriately due to ongoing issues with gross hematuria. no plans to pursue confirmatory testing - moving towards comfort care pathway. (4) ATN (acute tubular necrosis): Plan: Cr 1.8 this am - c/w sepsis-associated ATN (5) Palliative care patient: Plan: by late afternoon all routine orders, labs, vitals, etc were d/c in favor of a comfort care pathway ativan prn, scop patch, morphine drip, etc all ordered for optimal comfort all family members in agreement to transition to comfort care today (6) Fall: Plan: afternoon of 11/26 - R elbow skin tear, otherwise no injuries. CT head neg. Left hip x-rays - intact hardware. Retrospectively his worsening mental status and fall yesterday afternoon may have been the first symptom/sign of a brewing infection. (7) Closed intertrochanteric fracture of left hip: Plan: POD #7 s/p ORIF by Dr Sunny Saleh. (8) Altered mental status: Plan: had mild post-op delirium / hospital delirium - which then improved but unfortunately last several days his delirium had worsened he already had severe visual hallucinations at baseline which he suffered from chronically today he had SEVERE metabolic encephalopathy from his septic shock (9) Acute heart failure with preserved ejection fraction (HFpEF): Plan: had such earlier in the stay - resolved with gentle diruresis (10) Gross hematuria: Plan: ongoing was likely due to bladder or kidney ca (11) Demand ischemia of myocardium: Plan: elevated troponin earlier this admission again with elevated trop in setting of septic shock (12) Elevated troponin: Plan: (13) Aortic stenosis: Plan: mod-severe (14) Symptomatic cholelithiasis: Plan: Patient with several months of symptomatic cholelithiasis which only improved slightly following a low-fat diet. (15) Hypertension: Plan: now with shock as above (16) Anemia: Plan: Acute blood loss anemia from hip fracture itself. Hematuria contributed to such as well. 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 Had been following with [facility] and [facility], Dr Rodriguez. Previously on BCG therapy. 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 (18) B12 deficiency: (19) Benign prostatic hyperplasia with urinary obstruction: (20) Chronic kidney disease, stage 3 (moderate): Plan: stage 3b now with sepsis-associated ATN (21) Pancreatic lesion: (22) Thrombocytopenia: Plan: post-op then resolved. likely was consumptive in the setting of L hip fracture and repair. (23) Candidiasis of mouth and esophagus: (24) Constipation: (25) Acute metabolic encephalopathy: (26) Need for comfort care: Plan: cont morphine drip at this time with all comfort care measures Plan total critical care time today 90 minutes including shock management, respiratory failure management, multiple discussions with family, etc. Admission and Anticipated Discharge Date Admission Date: November 18, 2021 Subjective per staff the patient had slept until about 4am when his cifuentes catheter clogged due to clots irrigation at that time was successful; several large clots were present, cifuentes was irrigated, and the catheter started to drain urine once again shortly after 7am I received notification from nursing staff that patient was hypotensive, tachycardic, hypoxic with oxymask in place, having respiratory distress, and altered order given to administer NS bolus and place patient in Trendelenburg I went to the bedside and patient had severe respiratory distress with retractions, accessory muscle use, and tachypnea; he was making a snoring sound, and had apnea at times SBP was about 80 on exam - CV-tachycardic, s1 s2, +murmur; lungs-poor airation, tachypneic, retractions, accessory muscle use, crackles with end-exp wheeze; psych-not awake, not alert, lethargic, restless I asked staff to call respiratory to place BIPAP and give a duoneb after first fluid bolus (1 L NS) his SBP was only about 90; additional 1 L NS given as bolus blood cx's obtained, lactate/vbg/procal/d-dimer ordered dimer returned markedly elevated at >35,000 lactate elevated procal very high troponin elevated Cr 1.8 WBC 18,000 cxr obtained - my reading - b/l basilar infiltrates with ?pulm edema respiratory distress improved somewhat with BIPAP - RT titrated pressures to acquired adequate TVs sats did improve from upper 80s to 90s with BIPAP IV zosyn ordered I called and spoke with the pt's daughter, Kaye Alvarez Recounted the events of the morning Explained that her father had developed septic shock and that I was also suspicious he had developed PEs given his recent left hip Fx with surgery She understood that he was critical She confirmed that her father was DNR/DNI Told her I would keep her father comfortable with supportive care until she and her mother arrived By the time the pt's & daughter arrived his SBP was in the 90s He was on BIPAP and mentating a bit more but still quite confused He was able to hear their voices - he knew that they were present We talked about his current situation and that he would need to go to ICU for the septic shock and suspected VTE I expressed concerns that even with the BIPAP in place he was still retracting and looked uncomfortable /daughter stated that he would not want aggressive measures in this situation and to focus on comfort I recommended starting IV morphine to help with his increased work of breathing Daughter reported that her 4 siblings were all coming from various states but all would be here by the afternoon or early evening At that point we started to transition him to comfort care He required morphine several times over the late am/early afternoon to maintain comfort and for his air hunger/increased work of breathing urine output remained minimal most of the day Late afternoon all 5 children and multiple grandchildren were present in the room along with his the patient was minimally responsive by this point entire family was in agreement to start morphine infusion for ongoing increased work of breathing followed by removal of the BIPAP morphine drip was ordered, and after he achieved a level of comfort with such, the BIPAP was removed by respiratory of note - the patient's technology integration specialist did come in to bless the patient Review of Systems Review of Systems: Unobtainable due to cognitive status and Unobtainable due to reduced consciousness Physical Exam Physical Exam: gen - marked increased work of breathing with retractions, tachypnea, accessory muscle use, mouth open with a loud snoring sound; very lethargic, confused; poor color mouth - MM dry neck - no JVD heart - tachy, s1 s2, 2/6 systolic murmur lungs - retractions/tachypnea/accessory muscle use; very poor airation especially the bases; course BS with scattered wheezes abd - soft gu - gross hematuria in the cifuentes ext - cool feet, pulses <1+ b/l, cap refill prolonged psych - lethargic/altered Results & Data Results & Data ([facility]) Vital Signs (Past 12 Hours) Vital Signs Temp Pulse Resp BP 11/26/21 21:54 36.6 C 101 H 16 144/72 H Laboratory Results Laboratory Results - last 24 hr 11/27/21 11/27/21 05:58 05:58 WBC 18.99 H D RBC 3.01 L Hgb 9.8 L Hct 28.6 L MCV 95.0 MCH 32.6 MCHC 34.3 RDW Std Deviation 41.6 RDW Coeff of Jazmyne 12.1 Plt Count 223 MPV 9.4 Sodium 139 Potassium 3.7 Chloride 106 Carbon Dioxide 22 Anion Gap 11 BUN 38 H Creatinine 1.85 H D Est Cr Clr Drug Dosing 26.2 Est GFR ( Amer) 36.6 Est GFR (Non-Af Amer) 31.6 BUN/Creatinine Ratio 20.5 H Glucose 127 H Calcium 8.6 Diagnostic Findings Elbow X-Ray 11/26/21 17:16 RIGHT ELBOW 3 VIEWS CLINICAL HISTORY: Fall with right elbow injury. FINDINGS: 3 views of the right elbow were obtained. No prior studies are avai lable for comparison at the time of dictation. The skeletal structures are osteopenic. There is no radiographic evidence of right elbow fracture. The joint spaces are maintained. Enthesophytes arise from the humeral epicondyles. There is no joint effusion. Mild dorsal soft tissue swelling is noted. IMPRESSION: Mild dorsal soft tissue swelling with no radiographic evidence of acute fracture. Electronically signed by: Mahamed Thomas M.D. 11/26/2021 9:16 PM Chest X-Ray 11/27/21 07:49 XR chest 1V portable HISTORY: 89 years-old Male altered MS, cough, hypoxia acute cough with altered mental status and hypoxia COMPARISON: Chest radiograph 11/22/2021 TECHNIQUE: Portable AP view of the chest FINDINGS: Cardiac silhouette is enlarged. Pulmonary vascular congestion with interstitial coarsening, progressed from prior. Mild right hemidiaphragmatic elevation. Trace right and small left pleural effusions with persistent left basilar densities. Mild right hemidiaphragmatic elevation. Degenerative changes of the shoulders and spine. Healed chronic left-sided rib fractures. Right shoulder rotator cuff calcific tendinosis. IMPRESSION: 1. Cardiomegaly with mild pulmonary edema. 2. Small left pleural effusion with mild left basilar consolidation. ACT 112: Negative or not required by law. The above report was generated using voice recognition software. It may contain grammatical, syntax or spelling errors. Electronically signed by: Mak Sanders M.D. 11/27/2021 8:08 AM PG Care Time/CCT Total # of Minutes Spent Total Time Spent with Patient: Total time spent is greater than 50% in coordination of care (as documented) at patient's floor/unit and/or counseling patient: Critical Care Time: Yes Total Critical Care Time: 90 Coding Level of Care Code None Diagnoses Septic shock A41.9; R65.21 Acute respiratory failure with hypoxia J96.01 Elevated d-dimer R79.89 ATN (acute tubular necrosis) N17.0 Palliative care patient Z51.5 Fall W19.XXXA Closed intertrochanteric fracture of left hip S72.142A Encounter type: initial encounter Fracture alignment: displaced Altered mental status R41.82 Acute heart failure with preserved ejection fraction (HFpEF) I50.31 Gross hematuria R31.0 Demand ischemia of myocardium I24.8 Elevated troponin R77.8 Aortic stenosis I35.0 Symptomatic cholelithiasis K80.20 Hypertension I10 Anemia D64.9 Transitional cell carcinoma of left kidney C64.2 B12 deficiency E53.8 Benign prostatic hyperplasia with urinary obstruction N40.1; N13.8 Chronic kidney disease, stage 3 (moderate) N18.3 Pancreatic lesion K86.9 Thrombocytopenia D69.6 Candidiasis of mouth and esophagus B37.81; B37.0 Constipation K59.00 Acute metabolic encephalopathy G93.41 Need for comfort care Additional Codes Critical Care Time - Critical Care Time: Yes ([id number]) Time Spent (min) 90 Comment critical care time (1) Closed intertrochanteric fracture of left hip Encounter type: initial encounter Fracture alignment: displaced Qualified Code(s): S72.142A - Displaced intertrochanteric fracture of left femur, initial encounter for closed fracture
[2021-11-27 08:50] LABS: HCO3 VBG 24 mmol/L; Oxygen Saturation VBG < 60.0 %; PCO2 VBG 43 mmHg (38-50); PO2 VBG 29 mmHg; pH VBG 7.35 (7.36-7.41)
[2021-11-27] MEDS ORDERED: PIPERACILLIN/TAZOBACTAM 3.375 GM in DEXTROSE 5% 100 ML IV ONE (09:00)
[2021-11-27] MEDS ORDERED: SODIUM CHLORIDE 0.9% 1000ML 1,000 ML IV ONE (09:03)
[2021-11-27 09:11] LABS: D Dimer > 35200 ug/L FEU (0-500)
[2021-11-27] MEDS ORDERED: MoRPHine SULFATE 2 MG/ML CARP IV STA (10:16)
[2021-11-27] MEDS: ACETAMINOPHEN 500 MG TAB PO SCH ×2 (11:12→18:37)
[2021-11-27] MEDS: CYANOCOBALAMIN (B-12) 500 MCG TABLET PO SCH (11:13)
[2021-11-27] MEDS: CHOLECALCIFEROL 1,000 UNITS 25 MCG TAB PO SCH (11:13)
[2021-11-27] MEDS: NYSTATIN SUSP 500,000 U/5 ML UDC PO SCH ×2 (11:13→14:06)
[2021-11-27] MEDS: ursodioL 300 MG CAP PO SCH (11:14)
[2021-11-27] MEDS: TAMSULOSIN HCL 0.4 MG CAP PO SCH (11:14)
[2021-11-27] MEDS: POLYETHYLENE (MIRALAX) 17 GM PACK PO SCH (11:14)
[2021-11-27] MEDS: TRIAMCINOLONE ACET 0.1% CR 15 GM TUBE EXT SCH (11:14)
[2021-11-27] MEDS: LIDOCAINE 5% 1 PATCH TD SCH (11:34)
[2021-11-27] MEDS: MoRPHine SULFATE 2 MG/ML CARP IV PRN ×3 (13:15→17:22)
[2021-11-27] MEDS ORDERED: PIPERACILLIN/TAZOBACTAM 3.375 GM in DEXTROSE 5% 100 ML IV SCH (14:00)
[2021-11-27] MEDS ORDERED: MoRPHine BOLUS from BAG IV PRN (16:17)
[2021-11-27] MEDS ORDERED: ATROPINE SULFATE 1% OP SOLN 5 ML BTL SL PRN (16:23)
[2021-11-27] MEDS ORDERED: GLYCOPYRROLATE 0.2 MG/ML VIAL IV PRN (16:23)
[2021-11-27] MEDS ORDERED: LORazepam 0.5 MG in SYRINGE 0 ML IV PRN (16:23)
[2021-11-27] MEDS ORDERED: SCOPOLAMINE 1 MG TDSY TD SCH (16:30)
[2021-11-27] MEDS ORDERED: MoRPHine SULF/NSS 250 MG/250 ML BTL IV SCH (16:30)
[2021-11-27 20:30] LABS: A calco-baum cmplx NotReported Not Detected (NotDetected); Bact fragilis Not Reported Not Detected (NotDetected); C auris Not Reported Not Detected (NotDetected); CTX-M Resistant Gene Not Detected (NotDetected); Calbicans Not Reported Not Detected (NotDetected); Candida glabrata Not Reported Not Detected (NotDetected); Candida krusei Not Reported Not Detected (NotDetected); Cneoformans/gatti Not Reported Not Detected (NotDetected); Cparapsilosis Not Reported Not Detected (NotDetected); Ctropicalis Not Reported Not Detected (NotDetected); E cloacae compx Not Reported Not Detected (NotDetected); Efaecalis Not Reported Not Detected (NotDetected); Efaecium Not Reported Not Detected (NotDetected); Enterobacterales Not Reported DETECTED (NotDetected); Escherichia coli Not Reported Not Detected (NotDetected); H influenzae Not Reported Not Detected (NotDetected); IMP Resistant Gene Not Detected (NotDetected); K aerogenes Not Reported Not Detected (NotDetected); KPC Resistant Gene Not Detected (NotDetected); Koxytoca Not Reported Not Detected (NotDetected); Kpneumoniae grp Not Reported Not Detected (NotDetected); Lmonocyt Not Reported Not Detected (NotDetected); N meningitidis Not Reported Not Detected (NotDetected); NDM Resistant Gene Not Detected (NotDetected); OXA 48 Like Resistant Gene Not Detected (NotDetected); P aeruginosa Not Reported Not Detected (NotDetected); Proteus spp Not Reported DETECTED (NotDetected); Salmonella spp Not Reported Not Detected (NotDetected); Smarcescens Not Reported Not Detected (NotDetected); Staph lugdunensis Not Reported Not Detected (NotDetected); Staph spp. Not Reported Not Detected (NotDetected); Staphaureus Not Reported Not Detected (NotDetected); Staphepi Not Reported Not Detected (NotDetected); Stenmaltophilia Not Reported Not Detected (NotDetected); Strep agal(GrpB) Not Reported Not Detected (NotDetected); Strep pneum Not Reported Not Detected (NotDetected); Strep pyog (GrpA) Not Reported Not Detected (NotDetected); Strep spp Not Reported Not Detected (NotDetected); VIM Resistant Gene Not Detected (NotDetected)
[2021-11-27 20:46] LABS: Proteus species DETECTED (NotDetected)
[2021-11-27 20:47] LABS: Enterobacterales DETECTED (NotDetected)
--- NOTE | 2021-11-27 21:03 | Death Pronouncement Note ---
Date of Service November 27, 2021 Pronouncement Note Admission Date Admission Date: November 18, 2021 Date and Time of Date of : 11/27/21 Time of : 21:10 PCOD Preliminary cause of : Sepsis due to gram-negative bacteria Contributing Factors (1) Septic shock: (2) Acute respiratory failure with hypoxia: (3) ATN (acute tubular necrosis): (4) Fall: (5) Closed intertrochanteric fracture of left hip: (6) Altered mental status: (7) Acute heart failure with preserved ejection fraction (HFpEF): (8) Gross hematuria: (9) Demand ischemia of myocardium: (10) Elevated troponin: (11) Aortic stenosis: (12) Symptomatic cholelithiasis: (13) Hypertension: (14) Anemia: (15) Transitional cell carcinoma of left kidney: (16) B12 deficiency: (17) Benign prostatic hyperplasia with urinary obstruction: (18) Chronic kidney disease, stage 3 (moderate): (19) Pancreatic lesion: (20) Thrombocytopenia: (21) Candidiasis of mouth and esophagus: (22) Constipation: Summary Additional details: I was called to bedside to pronounce patient. Cessation of breathing at 20:41. Official time of pronouncement was 21:10. Family was present at bedside. Main contact lens fitter: daughter Kaye Alvarez [phone]. home: [facility]. Additional Data Confirmation of : no pulse, no respirations, no heart sounds and pupils fixed and dilated Family: at bedside Attending/PCP notified?: Yes Attending physician: Porfirio Kincaid Autopsy requested?: No Advance directives: Yes Resident Activity Tracking Resident Involvement: Resident Care Provided Care Provided: Adult Hospital Medicine
[2021-11-28] MEDS ORDERED: CHECK SCOPOLAMINE PATCH PLACEMENT SCH
--- NOTE | 2021-11-28 07:45 | Discharge Summary ---
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 The pt suffered a mechanical fall on his L side and could not bear weight following. He was transported to the ER where imaging confirmed a L intertrochanteric fracture. He has no additional complaints at the time of admission. He does state that he was due for immune therapy the following day. Labs are notable for mild anemia and a trop of 38. PMH: 1) HTN 2) Transitional cell CA of bladder and kidney - multiple resections of bladder tumors, kidney tumors and ureteral stenting 3) Pronounced systolic murmur with no echo on record 4) BPH 5) Bifascicular block on EKG Surgical: 1) Multiple tumor resection - bladder and kidney 2) Lumbar surgery - has a defunct stimulator Social: Does not smoke or drink Family: Noncontributory due to pt age Principal Diagnosis from septic shock, source pneumonia Discharge Exam pt was pronounced by night call resident Discharge Data Allergies Allergy/AdvReac Type Severity Reaction Status Date / Time caffeine Allergy Intermediate Throat Verified 11/18/21 22:12 swelling, hives, redness nitrofurantoin Allergy Unknown Unknown Verified 11/18/21 22:12 Consultations 11/18/21 22:05 ED Decision to Admit Stat 11/19/21 09:59 Consult Cardiology Routine 11/23/21 08:10 Consult Urology Routine Procedures Performed Operation Date: 11/20/21 13:00 Actual Procedures p Left Short Intramedullary Nail Hip(Left) - Sunny Saleh MD Ordered Studies 11/18/21 21:27 CT head/brain wo con Urgent CT hip LT wo con Urgent 11/20/21 13:00 FL hip LT 2-3V Routine 11/26/21 12:10 CT head/brain wo con Routine Hospital Course (1) : Pt was prounced at 0 on 11/27/21 cause of is septic shock from pnuemonia, in the post operative setting (2) Septic shock: Events of 11/27/21 BPs, lack of adequate response to fluid resuscitation, elevated lactate, markedly elevated procalcitonin, etc - all c/w septic shock. I cannot rule out a large PE event contributing to #2 and his shock. Source for sepsis - given #2 - likely pneumonia. s/p fluids (gave <30cc/kg due to recent acute CHF), IV zosyn, BIPAP, etc. Numerous discussions held with family shortly after the events began. Code status confirmed to be DNR/DNI. Family quickly moved towards comfort care pathway. (3) Acute respiratory failure with hypoxia: severe, with need for BIPAP. event despite BIPAP he continued with respiratory distress. Bipap stopped on comfort care (4) Elevated d-dimer: >35,000. although the value could be high from profound septic shock I am very suspicious he had a VTE/PE event. he was high risk for VTE due to stage 4 bladder cancer, recent surgery, and poor mobility. his recent xarelto for DVT proph was on hold appropriately due to ongoing issues with gross hematuria. no plans to pursue confirmatory testing - moving towards comfort care pathway. (5) ATN (acute tubular necrosis): Cr 1.8 this am - c/w sepsis-associated ATN (6) Palliative care patient: by late afternoon all routine orders, labs, vitals, etc were d/c in favor of a comfort care pathway ativan prn, scop patch, morphine drip, etc all ordered for optimal comfort all family members in agreement to transition to comfort care today (7) Fall: afternoon of 11/26 - R elbow skin tear, otherwise no injuries. CT head neg. Left hip x-rays - intact hardware. Retrospectively his worsening mental status and fall yesterday afternoon may have been the first symptom/sign of a brewing infection. (8) Closed intertrochanteric fracture of left hip: POD #7 s/p ORIF by Dr Sunny Saleh. (9) Altered mental status: had mild post-op delirium / hospital delirium - which then improved but unfortunately last several days his delirium had worsened he already had severe visual hallucinations at baseline which he suffered from chronically today he had SEVERE metabolic encephalopathy from his septic shock (10) Acute heart failure with preserved ejection fraction (HFpEF): had such earlier in the stay - resolved with gentle diruresis (11) Gross hematuria: ongoing was likely due to bladder or kidney ca (12) Demand ischemia of myocardium: elevated troponin earlier this admission again with elevated trop in setting of septic shock (13) Elevated troponin: (14) Aortic stenosis: mod-severe (15) Symptomatic cholelithiasis: Patient with several months of symptomatic cholelithiasis which only improved slightly following a low-fat diet. (16) Hypertension: now with shock as above (17) Anemia: Acute blood loss anemia from hip fracture itself. Hematuria contributed to such as well. (18) Transitional cell carcinoma of left kidney: Patient with known history of transitional cell bladder cancer and transitional cell left-sided kidney cancer. Had been following with [facility] and [facility], Dr Rodriguez. Previously on BCG therapy. 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 (19) B12 deficiency: (20) Benign prostatic hyperplasia with urinary obstruction: (21) Chronic kidney disease, stage 3 (moderate): stage 3b now with sepsis-associated ATN (22) Pancreatic lesion: (23) Thrombocytopenia: post-op then resolved. likely was consumptive in the setting of L hip fracture and repair. (24) Candidiasis of mouth and esophagus: (25) Constipation: (26) Acute metabolic encephalopathy: (27) Need for comfort care: cont morphine drip at this time with all comfort care measures Plan total critical care time today 90 minutes including shock management, respiratory failure management, multiple discussions with family, etc. Total Time Total Time Spent Total Time Spent (In Minutes): less than 30 minutes were required to complete this summary Discharge Plan Discharge Items Patient Disposition: Discharge Diagnosis: sepsis secondary to bacteremia Addtl Attending Provider Instructions: Mr. Choi's condition worsened on 11/27. He was bacteremic with gram negative bacilli per preliminary cultures. He was transitioned to comfort measures earlier in the day. Other Date/Time: 11/27/21 21:10 Coding Level of Care Code D/C DAY MANAGEMENT <30 MINS Diagnoses R99 Septic shock A41.9; R65.21 Acute respiratory failure with hypoxia J96.01 Elevated d-dimer R79.89 ATN (acute tubular necrosis) N17.0 Palliative care patient Z51.5 Fall W19.XXXA Closed intertrochanteric fracture of left hip S72.142A Encounter type: initial encounter Fracture alignment: displaced Altered mental status R41.82 Acute heart failure with preserved ejection fraction (HFpEF) I50.31 Gross hematuria R31.0 Demand ischemia of myocardium I24.8 Elevated troponin R77.8 Aortic stenosis I35.0 Symptomatic cholelithiasis K80.20 Hypertension I10 Anemia D64.9 Transitional cell carcinoma of left kidney C64.2 B12 deficiency E53.8 Benign prostatic hyperplasia with urinary obstruction N40.1; N13.8 Chronic kidney disease, stage 3 (moderate) N18.3 Pancreatic lesion K86.9 Thrombocytopenia D69.6 Candidiasis of mouth and esophagus B37.81; B37.0 Constipation K59.00 Acute metabolic encephalopathy G93.41 Need for comfort care
== END 2021-11-27 23:54 | disposition expired | DRG 480 ==
LOC: ED 20:16 → 3E 22:15 → SUATTDRO 22:15 → 3E 23:26
DX: Z96.82 Presence of neurostimulator; K80.20 Calculus of gallbladder without cholecystitis without obstruction; R65.21 Severe sepsis with septic shock; J96.01 Acute respiratory failure with hypoxia; E53.8 Deficiency of other specified B group vitamins; Z87.891 Personal history of nicotine dependence; Z51.5 Encounter for palliative care; N18.30 Chronic kidney disease, stage 3 unspecified; S51.011A Laceration without foreign body of right elbow, initial encounter; C79.51 Secondary malignant neoplasm of bone; N40.1 Benign prostatic hyperplasia with lower urinary tract symptoms; R31.0 Gross hematuria; B37.0 Candidal stomatitis; C64.2 Malignant neoplasm of left kidney, except renal pelvis; N25.81 Secondary hyperparathyroidism of renal origin; I35.0 Nonrheumatic aortic (valve) stenosis; C78.00 Secondary malignant neoplasm of unspecified lung; N17.0 Acute kidney failure with tubular necrosis; B37.81 Candidal esophagitis; K86.9 Disease of pancreas, unspecified; J18.9 Pneumonia, unspecified organism; Y92.239 Unspecified place in hospital as the place of occurrence of the external cause; C67.9 Malignant neoplasm of bladder, unspecified; H35.30 Unspecified macular degeneration; I45.2 Bifascicular block; I50.33 Acute on chronic diastolic (congestive) heart failure; Z66 Do not resuscitate; D62 Acute posthemorrhagic anemia; G93.41 Metabolic encephalopathy; A41.59 Other Gram-negative sepsis; Z98.1 Arthrodesis status; S72.142A Displaced intertrochanteric fracture of left femur, initial encounter for closed fracture; Z88.8 Allergy status to other drugs, medicaments and biological substances; I13.0 Hypertensive heart and chronic kidney disease with heart failure and stage 1 through stage 4 chronic kidney disease, or unspecified chronic kidney disease; W18.00XA Striking against unspecified object with subsequent fall, initial encounter; D69.6 Thrombocytopenia, unspecified; W18.39XA Other fall on same level, initial encounter; I24.8 Other forms of acute ischemic heart disease; Y92.019 Unspecified place in single-family (private) house as the place of occurrence of the external cause